=== PATIENT | male | born 1990 | race Hispanic/Latino ===

== ENCOUNTER 2018-05-08 10:26 | Emergency (ER) | payer BC, SELFPAY ==
[2018-05-08 11:30] LABS: Absolute Lymphocytes (CBC) 1.7 K/uL (0.7-4.9); Absolute Monocytes 0.5 K/uL (0.1-1.3); Basophils % 0.6 % (0-1.3); Eosinophils % 6.5 % (0-4.4); Hematocrit 47.4 % (39.6-49.0); Lymphocytes % 22.1 % (15.3-44.8); MCH 31.9 pg (27.0-35.0); MCV 89.3 fL (80-100); MPV 8.5 fL (7.6-11.3); Monocytes % 6.9 % (3.3-12.3); RBC Red Blood Cell Count 5.31 M/uL (4.33-5.43)
[2018-05-08 11:31] LABS: Protime INR 1.08
[2018-05-08 11:47] LABS: ALT/SGPT 25 U/L (12-78); AST/SGOT 14 U/L (15-37); Albumin 4.2 g/dL (3.4-5.0); Alkaline Phosphatase 109 U/L (45-117); BUN Blood Urea Nitrogen 13 mg/dL (7-18); Bicarbonate 28 mmol/L (21-32); Bilirubin Direct 0.2 mg/dL (0-0.2); Bilirubin Total 0.6 mg/dL (0.2-1.0); Glucose Level 95 mg/dL (74-106); Magnesium 2.2 mg/dL (1.8-2.4); NT PRO-BNP 15 pg/mL (<125); Potassium 3.8 mmol/L (3.5-5.1); Protein, Total 8.3 g/dL (6.4-8.2); Sodium Level 139 mmol/L (136-145); Troponin (Emerg Dept Use Only) < 0.02 ng/mL (0.0-0.045)
[2018-05-08] MEDS ORDERED: METHYLPREDNISOLONE 125 MG INJ ONE (11:49)
[2018-05-08] MEDS ORDERED: ALBUTEROL 2.5 MG/3 ML NEB SOL ONE (11:49)
[2018-05-08] MEDS ORDERED: ONDANSETRON 4 MG/2 ML VIAL ONE (11:49)
[2018-05-08] MEDS ORDERED: IPRATROPIUM BROM 0.5MG/2.5ML ONE (11:49)
[2018-05-08] MEDS ORDERED: NA CHLORIDE 0.9% 1,000 ML ONE ×2 (12:20→13:16)
--- NOTE | 2018-05-08 12:48 | RAD REPORT ---
EXAM DESCRIPTION: RAD - Chest Pa And Lat (2 Views) - 05/08/2018 11:34 am CLINICAL HISTORY: COUGH Chest pain. COMPARISON: Chest Pa And Lat (2 Views) dated 03/24/2016 FINDINGS: The lungs are clear. The heart is normal in size. No displaced fractures. IMPRESSION: No acute or concerning finding suspected.
--- NOTE | 2018-05-08 12:55 | EDPHYS ---
Physician Documentation [facility] Name: Brenden Washington Age: 28 yrs Sex: Male : 1990 Arrival Date: 05/08/2018 Time: 10:29 Bed 14 Private MD: None, None ED Physician Bacilio Andujar HPI: 05/08 10:48 This 28 yrs old Male presents to ER via Ambulatory with complaints of cp Congestion, Breathing Difficulty. 10:48 The patient or guardian reports cough, that is intermittent, with productive sputum, cp difficulty breathing. Onset: The symptoms/episode began/occurred 1 month(s) ago. 10:48 Associated signs and symptoms: Pertinent positives: shortness of breath, Pertinent cp negatives: chest pain, fever, sore throat, vomiting. Severity of symptoms: in the emergency department the symptoms are worse moderately. Historical: - Allergies: 10:36 Aspirin; aj1 - Home Meds: 10:36 None [Active]; aj1 - PMHx: 10:36 None; aj1 - PSHx: 10:36 None; aj1 - Immunization history:: Flu vaccine is not up to date. - Social history:: Smoking status: Patient uses tobacco products, denies chronic smoking, but will smoke occasionally. - Ebola Screening: : Patient denies travel to an Ebola-affected area in the 21 days before illness onset. ROS: 10:55 Constitutional: Negative for body aches, chills, fever, poor PO intake. cp 10:55 Eyes: Negative for injury, pain, redness, and discharge. cp 10:55 ENT: Negative for drainage from ear(s), ear pain, sore throat, difficulty swallowing, difficulty handling secretions. 10:55 Cardiovascular: Negative for chest pain, edema, palpitations. 10:55 Respiratory: Positive for cough, shortness of breath, wheezing, Negative for hemoptysis. 10:55 Abdomen/GI: Negative for abdominal pain, vomiting, diarrhea, constipation, black/tarry stool, rectal bleeding. 10:55 Back: Negative for radiated pain. 10:55 Skin: Negative for cellulitis, rash. 10:55 Neuro: Negative for altered mental status, dizziness, headache, syncope, weakness. 10:55 All other systems are negative. Exam: 11:00 Constitutional: The patient appears in no acute distress, alert, awake, cp non-diaphoretic, non-toxic, well developed, well nourished. 11:00 Head/Face: Normocephalic, atraumatic. Eyes: Pupils equal round and reactive to light, cp extra-ocular motions intact. Lids and lashes normal. Conjunctiva and sclera are non-icteric and not injected. Cornea within normal limits. Periorbital areas with no swelling, redness, or edema. ENT: Nares patent. No nasal discharge, no septal abnormalities noted. Tympanic membranes are normal and external auditory canals are clear. Oropharynx with no redness, swelling, or masses, exudates, or evidence of obstruction, uvula midline. Mucous membranes moist. Neck: Trachea midline, no thyromegaly or masses palpated, and no cervical lymphadenopathy. Supple, full range of motion without nuchal rigidity, or vertebral point tenderness. No Meningismus. Chest/axilla: Normal chest wall appearance and motion. Nontender with no deformity. No lesions are appreciated. 11:00 Cardiovascular: Rate: tachycardic, Rhythm: regular, Pulses: Pulses are 2+ in right radial artery and left radial artery. Heart sounds: murmur, not appreciated, Edema: is not appreciated, JVD: is not appreciated. 11:00 Respiratory: the patient does not display signs of respiratory distress, Respirations: labored breathing, is not present, intercostal retractions, are absent, shallow respirations, are not present, Breath sounds: decreased breath sounds, that are mild, diffuse, stridor, is not appreciated, + upper airway congestion. wheezing: that is mild, is heard diffusely. 11:00 Abdomen/GI: Inspection: abdomen appears normal, Palpation: abdomen is soft and non-tender, in all quadrants. 11:00 Back: pain, is absent, ROM is normal. 11:00 Skin: cellulitis, is not appreciated, no rash present. 11:00 Neuro: Orientation: to person, place \T\ time. Mentation: is normal, Cerebellar function: is grossly normal, Motor: moves all fours, strength is normal, Sensation: no obvious gross deficits. 11:24 ECG was reviewed by the Attending Physician. cp Vital Signs: 10:36 BP 152 / 116; Pulse 112; Resp 20; Temp 98.6(TE); Pulse Ox 98% on R/A; Weight 68.04 kg aj1 (R); Height 5 ft. 8 in. (172.72 cm) (R); Pain 5/10; 11:30 BP 150 / 98; Pulse 108; Resp 18; Pulse Ox 100% on R/A; hj 12:38 BP 148 / 97; Pulse 98; Resp 18; Pulse Ox 100% on R/A; hj 13:30 BP 135 / 95; Pulse 106; Resp 18; Pulse Ox 100% on R/A; hj 10:36 Body Mass Index 22.81 (68.04 kg, 172.72 cm) aj1 MDM: 10:42 Patient medically screened. amanda 11:00 Differential diagnosis: bronchitis, flu, URI, pneumonia, reactive airway, CHF, less cp likely pulmonary embolism. 12:52 Data reviewed: vital signs, nurses notes, lab test result(s), EKG, radiologic studies, cp plain films. 12:52 Test interpretation: by ED physician or midlevel provider: ECG, plain radiologic cp studies. Counseling: I had a detailed discussion with the patient and/or guardian regarding: the historical points, exam findings, and any diagnostic results supporting the discharge/admit diagnosis, lab results, radiology results, the need for outpatient follow up, a family practitioner, to return to the emergency department if symptoms worsen or persist or if there are any questions or concerns that arise at home. Response to treatment: the patient's symptoms have markedly improved after treatment, and as a result, I will discharge patient. ED course: VSS. Patient reports symptoms improved. Will discharge to home for continued monitoring. 05/08 10:50 Order name: Basic Metabolic Panel; Complete Time: 12:04 05/08 10:50 Order name: CBC with Diff; Complete Time: 12: cp 05/08 10:50 Order name: LFT's; Complete Time: 12:04 cp 05/08 10:50 Order name: Magnesium; Complete Time: 12:04 cp 05/08 10:50 Order name: NT PRO-BNP; Complete Time: 12:04 cp 05/08 10:50 Order name: PT-INR; Complete Time: 12:04 05/08 10:50 Order name: Troponin (emerg Dept Use Only); Complete Time: 12:04 05/08 10:50 Order name: XRAY Chest Pa And Lat (2 Views); Complete Time: 12:53 cp 05/08 10:50 Order name: Strep; Complete Time: 12:04 cp 05/08 11:47 Order name: Throat Culture EDMS 05/08 10:50 Order name: EKG; Complete Time: 10:50 cp 05/08 10:50 Order name: Cardiac monitoring; Complete Time: 10:55 cp 05/08 10:50 Order name: EKG - Nurse/Tech; Complete Time: 11:36 cp 05/08 10:50 Order name: IV Saline Lock; Complete Time: 11:36 cp 05/08 10:50 Order name: Labs collected and sent; Complete Time: 11:36 cp 05/08 10:50 Order name: O2 Per Protocol; Complete Time: 10:55 cp 05/08 10:50 Order name: O2 Sat Monitoring; Complete Time: 10:56 cp EC:24 Rate is 94 beats/min. Rhythm is regular. SC interval is normal. QRS interval is normal. cp QT interval is normal. T waves are Inverted in lead III. Interpreted by me. Reviewed by me. Administered Medications: 11:20 Drug: Zofran 4 mg Route: IVP; Site: right antecubital; hj 13:09 Follow up: Response: No adverse reaction hj 11:20 Drug: Albuterol - atroVENT (3:1) (2.5 mg - 0.5 mg) 3 ml Route: Nebulizer; hj 13:09 Follow up: Response: No adverse reaction; Wheezing diminished hj 11:20 Drug: SOLU-Medrol 125 mg Route: IVP; Site: right antecubital; hj 13:09 Follow up: Response: No adverse reaction hj 12:05 Drug: NS 0.9% 1000 ml Route: IV; Rate: 1 bolus; Site: right antecubital; hj 13:09 Follow up: IV Status: Completed infusion; IV Intake: 1000ml hj 13:08 Drug: NS 0.9% 1000 ml Route: IV; Rate: 1 bolus; Site: right antecubital; hj 13:10 Follow up: IV Status: Completed infusion Disposition: 05/09 06:22 Co-signature as Attending Physician, Bacilio MCKEON I agree with the assessment and amanda plan of care. Disposition: 05/08/18 12:54 Discharged to Home. Impression: Acute bronchitis, unspecified. - Condition is Stable. - Discharge Instructions: Acute Bronchitis, Adult. - Prescriptions for Tessalon Perles 100 mg Oral Capsule - take 1 capsule by ORAL route every 8 hours As needed; 15 capsule. Zithromax Z- Faraz 250 mg Oral Tablet - take 1 tablet by ORAL route as directed for 5 days Day 1 - take two (2) tablets one time. Day 2, 3, 4 , 5 take one (1) tablet once daily.; 6 tablet. Prednisone 20 mg Oral Tablet - take 2 tablet by ORAL route once daily for 5 days; 10 tablet. Albuterol Sulfate 90 mcg/actuation - inhale 1-2 puff by INHALATION route every 4-6 hours; 1 Inhaler. - Medication Reconciliation Form, Thank You Letter, Antibiotic Education, Prescription Opioid Use form. - Follow up: Private Physician; When: 2 - 3 days; Reason: Recheck today's complaints. - Problem is new. - Symptoms have improved. Signatures: Dispatcher [employer] EDLaxmi Cardenas RN RN aj1 Bacilio Andujar MD MD cha Joaquin, Henry, RN RN hj Bacilio Das PA PA cp Corrections: (The following items were deleted from the chart) 05/08 14:12 12:54 05/08/2018 12:54 Discharged to Home. Impression: Acute bronchitis, unspecified. hj Condition is Stable. Forms are Medication Reconciliation Form, Thank You Letter, Antibiotic Education, Prescription Opioid Use. Follow up: Private Physician; When: 2 - 3 days; Reason: Recheck today's complaints. Problem is new. Symptoms have improved. cp
--- NOTE | 2018-05-08 12:55 | ER ---
Nurse's Notes [facility] Name: Brenden Washington Age: 28 yrs Sex: Male : 1990 Arrival Date: 05/08/2018 Time: 10:29 Bed 14 Private MD: None, None Diagnosis: Acute bronchitis, unspecified Presentation: 05/08 10:33 Presenting complaint: Patient states: "I've been having like a general cough for like a aj1 month now. I was just taking over the counter medicine and it would go away a little bit and then it would get worse. This morning I woke up and I felt like I couldn't breathe." Reports that he was running fever last week, but has not had any fever since Wednesday. Transition of care: patient was not received from another setting of care. Onset of symptoms was March 2018. Risk Assessment: Do you want to hurt yourself or someone else? Patient reports no desire to harm self or others. Initial Sepsis Screen: Does the patient meet any 2 criteria? HR > 90 bpm. No. Patient's initial sepsis screen is negative. Does the patient have a suspected source of infection? Yes: Productive cough/pneumonia. Care prior to arrival: None. 10:33 Method Of Arrival: Ambulatory aj1 10:33 Acuity: ADI 4 aj1 Triage Assessment: 10:36 General: Appears in no apparent distress. uncomfortable, Behavior is calm, cooperative, aj1 appropriate for age. Pain: Complains of pain in chest Pain currently is 5 out of 10 on a pain scale. Aggravated by cough, deep breathing. Neuro: Level of Consciousness is awake, alert, obeys commands. Cardiovascular: Patient's skin is warm and dry. Respiratory: Airway is patent Respiratory effort is even, unlabored, Respiratory pattern is regular, symmetrical. 10:42 Respiratory: hj Historical: - Allergies: 10:36 Aspirin; aj1 - Home Meds: 10:36 None [Active]; aj1 - PMHx: 10:36 None; aj1 - PSHx: 10:36 None; aj1 - Immunization history:: Flu vaccine is not up to date. - Social history:: Smoking status: Patient uses tobacco products, denies chronic smoking, but will smoke occasionally. - Ebola Screening: : Patient denies travel to an Ebola-affected area in the 21 days before illness onset. Screenin:42 Abuse screen: Denies threats or abuse. Denies injuries from another. Nutritional hj screening: No deficits noted. Tuberculosis screening: No symptoms or risk factors identified. Fall Risk None identified. Assessment: 10:36 General: Appears in no apparent distress. uncomfortable, Behavior is calm, cooperative, hj appropriate for age. Pain: Complains of pain in chest. Neuro: Level of Consciousness is awake, alert, obeys commands, Oriented to person, place, time, situation, Appropriate for age. Cardiovascular: Capillary refill < 3 seconds Patient's skin is warm and dry. Respiratory: Airway is patent Respiratory effort is even, unlabored, Respiratory pattern is regular, symmetrical. Respiratory: Breath sounds are clear bilaterally. GI: No signs and/or symptoms were reported involving the gastrointestinal system. : No signs and/or symptoms were reported regarding the genitourinary system. EENT: No signs and/or symptoms were reported regarding the EENT system. Derm: No signs and/or symptoms reported regarding the dermatologic system. Musculoskeletal: No signs and/or symptoms reported regarding the musculoskeletal system. 11:30 Reassessment: Patient and/or family updated on plan of care and expected duration. Pain hj level reassessed. Patient is alert, oriented x 3, equal unlabored respirations, skin warm/dry/pink. 12:30 Reassessment: Patient and/or family updated on plan of care and expected duration. Pain hj level reassessed. Patient is alert, oriented x 3, equal unlabored respirations, skin warm/dry/pink. 13:13 Reassessment: for D/C; 2nd bag N 1 L still running;. hj Vital Signs: 10:36 BP 152 / 116; Pulse 112; Resp 20; Temp 98.6(TE); Pulse Ox 98% on R/A; Weight 68.04 kg aj1 (R); Height 5 ft. 8 in. (172.72 cm) (R); Pain 5/10; 11:30 BP 150 / 98; Pulse 108; Resp 18; Pulse Ox 100% on R/A; hj 12:38 BP 148 / 97; Pulse 98; Resp 18; Pulse Ox 100% on R/A; hj 13:30 BP 135 / 95; Pulse 106; Resp 18; Pulse Ox 100% on R/A; hj 10:36 Body Mass Index 22.81 (68.04 kg, 172.72 cm) aj1 ED Course: 10:29 Patient arrived in ED. mr 10:30 None, None is Private Physician. mr 10:36 Triage completed. aj1 10:36 Arm band placed on Patient placed in an exam room. aj1 10:41 Lc Stanton RN is Primary Nurse. hj 10:41 Bacilio Das PA is PHCP. cp 10:41 Bacilio Andujar MD is Attending Physician. cp 10:42 Patient has correct armband on for positive identification. Bed in low position. Call hj light in reach. Side rails up X 1. Adult w/ patient. 11:20 Initial lab(s) drawn, by me, sent to lab. EKG done. Inserted saline lock: 22 gauge in hj right antecubital area, using aseptic technique. Blood collected. 11:28 XRAY Chest Pa And Lat (2 Views) In Process Unspecified. EDMS 11:36 Strep Sent. hj 14:11 No provider procedures requiring assistance completed. IV discontinued, intact, hj bleeding controlled, No redness/swelling at site. Pressure dressing applied. Administered Medications: 11:20 Drug: Zofran 4 mg Route: IVP; Site: right antecubital; hj 13:09 Follow up: Response: No adverse reaction hj 11:20 Drug: Albuterol - atroVENT (3:1) (2.5 mg - 0.5 mg) 3 ml Route: Nebulizer; hj 13:09 Follow up: Response: No adverse reaction; Wheezing diminished hj 11:20 Drug: SOLU-Medrol 125 mg Route: IVP; Site: right antecubital; hj 13:09 Follow up: Response: No adverse reaction hj 12:05 Drug: NS 0.9% 1000 ml Route: IV; Rate: 1 bolus; Site: right antecubital; hj 13:09 Follow up: IV Status: Completed infusion; IV Intake: 1000ml hj 13:08 Drug: NS 0.9% 1000 ml Route: IV; Rate: 1 bolus; Site: right antecubital; hj 13:10 Follow up: IV Status: Completed infusion hj Intake: 13:09 IV: 1000ml; Total: 1000ml. hj Outcome: 12:54 Discharge ordered by . cp 14:11 Discharged to home ambulatory. hj 14:11 Condition: stable 14:11 Discharge instructions given to patient, Instructed on discharge instructions, follow up and referral plans. medication usage, Demonstrated understanding of instructions, follow-up care, medications, Prescriptions given X 4. 14:12 Patient left the ED. wojciech Signatures: Dispatcher [employer] EDLaxmi Cardenas, RN RN aj1 Cyndy Del Cid mr StantonLc RN RN hj Page, Corey, PA PA cp Corrections: (The following items were deleted from the chart) 13:25 13:13 Reassessment: 2nd bag running; wojciech jeffrey
--- NOTE | 2018-05-09 07:38 | EKG ---
Test Date: 2018-05-08 Test Time: 11:17:20 Elevator Service Technician: JAMILA MEASUREMENT RESULTS: Intervals: Rate: 94 MT: 112 QRSD: 96 QT: 338 QTc: 422 [place]: P: 71 MT: 112 QRS: 73 T: 30 INTERPRETIVE STATEMENTS: Normal sinus rhythm Normal ECG Compared to ECG 03/24/2016 07:58:15 Sinus arrhythmia no longer present Electronically Signed On 05-09-18 07:36:59 TITLE I PARAPROFESSIONAL by Yahir Conley
== END 2018-05-08 14:12 | disposition home or self-care (01) ==
LOC: ER 10:26
DX: J20.9 Acute bronchitis, unspecified (principal); Z72.0 Tobacco use
CPT/HCPCS: 36415; 71046; 80048; 80076; 83735; 83880; 84484; 85025; 85610; 87070; 87081; 93005; 94640; 96361; 96374; 96375; 99284; J2405; J2930; J7030

== ENCOUNTER 2020-05-01 07:13 | Emergency (ER) | payer SELFPAY ==
[2020-05-01 07:51] LABS: Absolute Lymphocytes (CBC) 1.2 K/uL (0.7-4.9); Hematocrit 46.6 % (39.6-49.0); Lymphocytes % 23.6 % (15.3-44.8); MPV 8.3 fL (7.6-11.3); RBC Red Blood Cell Count 5.23 M/uL (4.33-5.43)
[2020-05-01 08:14] LABS: Barbiturates NEGATIVE (NEGATIVE); Benzodiazepines NEGATIVE (NEGATIVE); Cocaine NEGATIVE (NEGATIVE); METHAMPHETAM NEGATIVE (NEGATIVE); Methadone NEGATIVE (NEGATIVE); Opiates NEGATIVE (NEGATIVE); Phencyclidine NEGATIVE (NEGATIVE); THC Cannibis NEGATIVE (NEGATIVE)
[2020-05-01 08:17] LABS: ALT/SGPT 41 U/L (12-78); AST/SGOT 21 U/L (15-37); Albumin 4.3 g/dL (3.4-5.0); Alkaline Phosphatase 116 U/L (45-117); BUN Blood Urea Nitrogen 17 mg/dL (7-18); Bicarbonate 29 mmol/L (21-32); Bilirubin Direct 0.1 mg/dL (0-0.2); Bilirubin Total 0.5 mg/dL (0.2-1.0); Glucose Level 99 mg/dL (74-106); Potassium 3.9 mmol/L (3.5-5.1); Protein, Total 8.5 g/dL (6.4-8.2); Sodium Level 140 mmol/L (136-145)
[2020-05-01 08:18] LABS: Urine Blood NEGATIVE (NEG); Urine Glucose NEGATIVE (NEG); Urine Protein NEGATIVE (NEG)
[2020-05-01] MEDS ORDERED: ONDANSETRON 4 MG/2 ML VIAL ONE (08:37)
--- NOTE | 2020-05-01 08:38 | RAD REPORT ---
EXAM DESCRIPTION: CT - Head Brain Wo Cont - 05/01/2020 8:32 am CLINICAL HISTORY: CONFUSED, unresponsive, altered mental status COMPARISON: No comparisons TECHNIQUE: Axial 5 mm thick images of the head were obtained without IV contrast. All CT scans are performed using dose optimization technique as appropriate and may include automated exposure control or mA/KV adjustment according to patient size. FINDINGS: No intracranial hemorrhage, mass, edema or shift of mid-line structures. No acute infarcti on changes seen. No abnormal extra-axial fluid collections. Ventricles are normal. Mastoid air cells are clear. No acute paranasal sinus finding. No acute bony findings. IMPRESSION: Negative non-contrast CT head examination.
--- NOTE | 2020-05-01 10:15 | EDPHYS ---
Physician Documentation [facility] Name: Brenden Washington Age: 30 yrs Sex: Male : 1990 Arrival Date: 05/01/2020 Time: 07:17 Bed 8 Private MD: ED Physician Sam Mckeon HPI: 05/01 08:18 This 30 yrs old Male presents to ER via EMS with complaints of Altered Mental kdr Status. 08:18 The patient presents with agitation, confusion, disorientation, to person, to place, to kdr time. Onset: The symptoms/episode began/occurred suddenly, just prior to arrival, this morning. Possible causes: unknown. Historical: - Allergies: 07:26 Aspirin (Anaphylaxis); tw2 - Home Meds: 07:26 carvedilol 12.5 mg oral tab 1 tab 2 times per day (Last Dose: 04/30/2020) [Active]; tw2 - PMHx: 07:26 Asthma; Hypertension; tw2 - PSHx: 07:26 None; tw2 - Immunization history:: Adult Immunizations. - Social history:: Smoking status: . Exam: 07:39 ECG was reviewed by the Attending Physician. kdr Vital Signs: 07:18 BP 146 / 113; Pulse 81; Resp 19; Temp 99.2(O); Pulse Ox 98% on R/A; Weight 75.3 kg (R); tw2 Height 5 ft. 8 in. (172.72 cm); Pain 0/10; 07:44 BP 144 / 101; Pulse 94; Resp 17; Pulse Ox 96% ; jl7 08:04 BP 122 / 85; Pulse 88; Resp 18; Pulse Ox 97% on R/A; tw2 08:37 BP 135 / 97; Pulse 76; Resp 18; Pulse Ox 97% on R/A; tw2 09:40 BP 137 / 99; Pulse 76; Resp 17; Pulse Ox 98% on R/A; tw2 07:18 Body Mass Index 25.24 (75.30 kg, 172.72 cm) tw2 MDM: 10:14 Patient medically screened. kdr 05/01 07:18 Order name: Acetaminophen; Complete Time: 08:52 kdr 05/01 07:18 Order name: Basic Metabolic Panel; Complete Time: 08:52 kdr 11/18 07:18 Order name: CBC with Diff; Complete Time: 08:52 kdr 05/01 07:18 Order name: ETOH Level; Complete Time: 08:52 kdr 05/01 07:18 Order name: Hepatic Function; Complete Time: 08:52 kdr 05/01 07:18 Order name: PT-INR; Complete Time: 08:52 kdr 05/01 07:18 Order name: Ptt, Activated; Complete Time: 08:52 kdr 05/01 07:18 Order name: Salicylate; Complete Time: 09:34 kdr 05/01 07:18 Order name: Urine Drug Screen; Complete Time: 08:52 kdr 05/01 07:18 Order name: EKG; Complete Time: 07:19 kdr 05/01 07:18 Order name: EKG - Nurse/Tech; Complete Time: 07:44 kdr 05/01 07:53 Order name: Urine Dipstick--Ancillary (enter results); Complete Time: 08:52 bd 05/01 07:59 Order name: CT Head Brain wo Cont; Complete Time: 08:52 kdr 05/01 07:18 Order name: IV Saline Lock; Complete Time: 07:44 kdr 05/01 07:18 Order name: Labs collected and sent; Complete Time: 07:44 kdr 05/01 07:18 Order name: Urine Dipstick-Ancillary (obtain specimen); Complete Time: 08:00 kdr EC:39 Rate is 82 beats/min. Rhythm is regular, Sinus arrythmia with No ectopy. QRS [place] is kdr Normal. [place] interval is normal. QRS interval is normal. QT interval is normal. Clinical impression: NSR w/ Non-specific ST/T Changes. Administered Medications: 08:26 Drug: Zofran (Ondansetron) 4 mg Route: IVP; Site: right antecubital; jl7 08:45 Follow up: Response: No adverse reaction; Nausea is decreased jl7 Disposition: 05/01/20 10:14 Discharged to Home. Impression: Altered mental status, unspecified, Confusional arousals. - Condition is Stable. - Discharge Instructions: Confusion, Weakness, [id number]. - Medication Reconciliation Form, Thank You Letter, Work release form form. - Follow up: Private Physician; When: 2 - 3 days; Reason: If symptoms return, Further diagnostic work-up, Recheck today's complaints, Continuance of care, Re-evaluation by your physician. Follow up: Shravan Cuevas MD; When: 1 - 2 days; Reason: If symptoms return, Further diagnostic work-up, Recheck today's complaints, Continuance of care, Re-evaluation by your physician. - Problem is new. - Symptoms are resolved. Signatures: Dispatcher [employer] EDMS Sam Mckeon MD MD [facility] Macarena Minaya RN RN tw2 Jeannie Curtis RN RN jl7 Corrections: (The following items were deleted from the chart) 10:37 10:14 05/01/2020 10:14 Discharged to Home. Impression: Altered mental status, jl7 unspecified; Confusional arousals. Condition is Stable. Forms are Medication Reconciliation Form, Thank You Letter, Antibiotic Education, Prescription Opioid Use. Follow up: Private Physician; When: 2 - 3 days; Reason: If symptoms return, Further diagnostic work-up, Recheck today's complaints, Continuance of care, Re-evaluation by your physician. Follow up: Shravan Cuevas; When: 1 - 2 days; Reason: If symptoms return, Further diagnostic work-up, Recheck today's complaints, Continuance of care, Re-evaluation by your physician. Problem is new. Symptoms are resolved. kdr
--- NOTE | 2020-05-01 10:15 | ER ---
Nurse's Notes [facility] Name: Brenden Washington Age: 30 yrs Sex: Male : 1990 Arrival Date: 05/01/2020 Time: 07:17 Bed 8 Private MD: Diagnosis: Altered mental status, unspecified;Confusional arousals Presentation: 05/01 07:18 Chief complaint: EMS states: pt was found unresponsive outside of friends house, they tw2 think he was walking, when we arrived he was A\\T\\O x1, confused, alert to verbal stimuli, friends denied seizure like activity, friends say he has a new dx of HTN and started Carvedilol first dose last night, and has a hx of asthma, pt states he doesn't remember the fall or us showing up, he denies ETOH, synthetic or any drug use, he was nauseous, we gave 4 mg Zofran and 250 ml NS, he was hypertensive for us. Coronavirus screen: At this time, the client does not indicate any symptoms associated with coronavirus-19. Ebola Screen: Patient denies travel to an Ebola-affected area in the 21 days before illness onset. Initial Sepsis Screen: Does the patient meet any 2 criteria? No. Patient's initial sepsis screen is negative. Does the patient have a suspected source of infection? No. Patient's initial sepsis screen is negative. Risk Assessment: Do you want to hurt yourself or someone else? Patient reports no desire to harm self or others. Onset of symptoms was May 01, 2020. 07:18 Method Of Arrival: EMS: [facility] tw2 07:18 Acuity: ADI 2 tw2 Triage Assessment: 07:18 General: Appears in no apparent distress. slender, Behavior is calm, cooperative, tw2 appropriate for age. General: Reports "i just feel very drowsy like and i was supposed to go get my physical for work". Pain: Denies pain. EENT: No signs and/or symptoms were reported regarding the EENT system. Neuro: Level of Consciousness is awake, alert, obeys commands, Oriented to person, place, situation. Cardiovascular: Heart tones S1 S2 Patient's skin is warm and dry. Respiratory: Airway is patent Respiratory effort is even, unlabored, Respiratory pattern is regular, symmetrical, Breath sounds are clear bilaterally. GI: No signs and/or symptoms were reported involving the gastrointestinal system. Abdomen is flat, Bowel sounds present X 4 quads. : No signs and/or symptoms were reported regarding the genitourinary system. Derm: No signs and/or symptoms reported regarding the dermatologic system. Musculoskeletal: Range of motion: intact in all extremities. Historical: - Allergies: 07:26 Aspirin (Anaphylaxis); tw2 - Home Meds: 07:26 carvedilol 12.5 mg oral tab 1 tab 2 times per day (Last Dose: 04/30/2020) [Active]; tw2 - PMHx: 07:26 Asthma; Hypertension; tw2 - PSHx: 07:26 None; tw2 - Immunization history:: Adult Immunizations. - Social history:: Smoking status: . Screenin:27 Abuse screen: Denies threats or abuse. Nutritional screening: No deficits noted. tw2 Tuberculosis screening: No symptoms or risk factors identified. Fall Risk None identified. Assessment: 08:04 Reassessment: see triage assessment. tw2 08:28 Reassessment: Pt c/o nausea, ERD notified, VO for 4 mg Zofran IVP, medicated as ordered.jl7 08:37 Reassessment: Patient appears in no apparent distress at this time. No changes from tw2 previously documented assessment. Patient and/or family updated on plan of care and expected duration. Pain level reassessed. Patient is alert, oriented x 3, equal unlabored respirations, skin warm/dry/pink. 08:58 Reassessment: pt ambulates with father to restroom at this time, slow steady gait. tw2 08:59 Reassessment: pt c/o "headache on my forehead, can i get some ibuprofen, 3/10", tw2 provider notified. 09:40 Reassessment: Patient appears in no apparent distress at this time. No changes from tw2 previously documented assessment. Patient and/or family updated on plan of care and expected duration. Pain level reassessed. Patient is alert, oriented x 3, equal unlabored respirations, skin warm/dry/pink. Vital Signs: 07:18 BP 146 / 113; Pulse 81; Resp 19; Temp 99.2(O); Pulse Ox 98% on R/A; Weight 75.3 kg (R); tw2 Height 5 ft. 8 in. (172.72 cm); Pain 0/10; 07:44 BP 144 / 101; Pulse 94; Resp 17; Pulse Ox 96% ; jl7 08:04 BP 122 / 85; Pulse 88; Resp 18; Pulse Ox 97% on R/A; tw2 08:37 BP 135 / 97; Pulse 76; Resp 18; Pulse Ox 97% on R/A; tw2 09:40 BP 137 / 99; Pulse 76; Resp 17; Pulse Ox 98% on R/A; tw2 07:18 Body Mass Index 25.24 (75.30 kg, 172.72 cm) tw2 ED Course: 07:17 Patient arrived in ED. tw2 07:17 Placed in gown. Bed in low position. Side rails up X2. vehicle monitor technician on. Pulse ox on. tw2 NIBP on. 07:18 Sam Mckeon MD is Attending Physician. kdr 07:23 Triage completed. tw2 07:26 Arm band placed on. tw2 07:26 Maintain EMS IV. Dressing intact. Site clean \\T\\ dry. Gauge \\T\\ site: 20 g RIGHT FA. tw 2 07:27 Macarena Minaya, RN is Primary Nurse. tw2 07:38 Initial lab(s) drawn, by il, sent to lab. Inserted saline lock: 20 gauge in right tw2 antecubital area, using aseptic technique. Blood collected. 08:00 Urine Drug Screen Sent. tw2 08:30 CT Head Brain wo Cont In Process Unspecified. EDMS 08:31 CT completed. Patient tolerated procedure well. Patient moved to CT via stretcher. sj Patient moved back from CT. 10:13 Shravan Cuevas MD is Referral Physician. kdr 10:36 No provider procedures requiring assistance completed. IV discontinued, intact, jl7 bleeding controlled, No redness/swelling at site. Pressure dressing applied. Administered Medications: 08:26 Drug: Zofran (Ondansetron) 4 mg Route: IVP; Site: right antecubital; jl7 08:45 Follow up: Response: No adverse reaction; Nausea is decreased jl7 Outcome: 10:14 Discharge ordered by . kdr 10:36 Discharged to home ambulatory. jl7 10:36 Condition: stable 10:36 Discharge instructions given to patient, Instructed on discharge instructions, follow up and referral plans. Demonstrated understanding of instructions, follow-up care. 10:37 Patient left the ED. jl7 Signatures: Dispatcher [employer] EDMS Sam Mckeon MD MD kdr Jones, Susan sj Wise, Tara, RN RN tw2 Jeannie Curtis RN RN jl7
[2020-05-01 13:13] VITALS: TEMP 99.2
[2020-05-01 13:19] VITALS: BP 137/99; O2SAT 98
--- NOTE | 2020-05-02 06:07 | EKG ---
Test Date: 2020-05-01 Test Time: 07:34:06 Restaurant Hourly Manager: WILL MEASUREMENT RESULTS: Intervals: Rate: 82 NV: 122 QRSD: 90 QT: 342 QTc: 399 [place]: P: 54 NV: 122 QRS: 24 T: 12 INTERPRETIVE STATEMENTS: Normal sinus rhythm with sinus arrhythmia Normal ECG Compared to ECG 05/08/2018 11:17:20 No significant changes Electronically Signed On 05-02-20 06:03:16 ELECTRONIC GAME DEVELOPER by Asif Rhodes
== END 2020-05-01 10:37 | disposition home or self-care (01) ==
LOC: ER 07:13
DX: G47.51 Confusional arousals (principal); I10 Essential (primary) hypertension; J45.909 Unspecified asthma, uncomplicated; Z88.6 Allergy status to analgesic agent
CPT/HCPCS: 36415; 70450; 80048; 80076; 80307; 80320; 80329; 81003; 85025; 85610; 85730; 93005; 96374; 99285; J2405

== ENCOUNTER 2020-06-27 08:00 | Emergency (ER) | payer SELFPAY ==
[2020-06-27 09:05] LABS: Absolute Lymphocytes (CBC) 0.5 K/uL (0.7-4.9); Basophils % 0.5 % (0-1.3); Hematocrit 45.9 % (39.6-49.0); Lymphocytes % 14.9 % (15.3-44.8); MPV 8.5 fL (7.6-11.3); RBC Red Blood Cell Count 5.19 M/uL (4.33-5.43)
[2020-06-27] MEDS ORDERED: LIDOCAINE VISCOUS 2% SOLN 15 ML UDC ONE (09:17)
[2020-06-27] MEDS ORDERED: KETOROLAC 30 MG/ML INJ ONE (09:17)
[2020-06-27] MEDS ORDERED: MAGNES/ALUMIN/SIMET 30ML UCUP ONE (09:17)
[2020-06-27] MEDS ORDERED: FAMOTIDINE 20 MG/2 ML VIAL IV ONE (09:18)
[2020-06-27] MEDS ORDERED: NA CHLORIDE 0.9% 1,000 ML ONE (09:18)
[2020-06-27 09:50] LABS: ALT/SGPT 19 U/L (12-78); AST/SGOT 16 U/L (15-37); Albumin 4.4 g/dL (3.4-5.0); Alkaline Phosphatase 118 U/L (45-117); BUN Blood Urea Nitrogen 15 mg/dL (7-18); Bicarbonate 30 mmol/L (21-32); Bilirubin Direct 0.1 mg/dL (0-0.2); Bilirubin Total 0.4 mg/dL (0.2-1.0); Glucose Level 84 mg/dL (74-106); Lipase 92 U/L (73-393); Potassium 3.7 mmol/L (3.5-5.1); Protein, Total 8.6 g/dL (6.4-8.2); Sodium Level 140 mmol/L (136-145)
[2020-06-27 09:55] LABS: Blood Morphology Comment NOT SEEN (NOT SEEN); Platelet Estimate ADEQ; White Blood Cell Scan OK (OK)
--- NOTE | 2020-06-27 10:23 | ER ---
Nurse's Notes [facility] Name: Brenden Washington Age: 30 yrs Sex: Male : 1990 Arrival Date: 06/27/2020 Time: 08:03 Bed 26 Private MD: Diagnosis: Abdominal and pelvic pain;Vomiting Presentation: 06/27 08:33 Chief complaint: Patient states: vomiting X 2 days, also has burning in his stomach, no iw fever, +chills and weakness from not eating. Coronavirus screen: vomiting. Ebola Screen: Patient negative for fever greater than or equal to 101.5 degrees Fahrenheit, and additional compatible Ebola Virus Disease symptoms Patient denies exposure to infectious person. Patient denies travel to an Ebola-affected area in the 21 days before illness onset. No symptoms or risks identified at this time. Initial Sepsis Screen: Does the patient meet any 2 criteria? No. Patient's initial sepsis screen is negative. Does the patient have a suspected source of infection? No. Patient's initial sepsis screen is negative. Risk Assessment: Do you want to hurt yourself or someone else? Patient reports no desire to harm self or others. Onset of symptoms was June 25, 2020. 08:33 Method Of Arrival: Wheelchair iw 08:33 Acuity: ADI 3 iw Historical: - Allergies: 08:35 Aspirin (Anaphylaxis); iw - Home Meds: 08:35 None [Active]; iw - PMHx: 08:35 Asthma; Hypertension; iw - PSHx: 08:35 None; iw - Immunization history:: Adult Immunizations not up to date. - Social history:: Smoking status: Patient denies any tobacco usage or history of. Screenin:14 Abuse screen: Denies threats or abuse. Nutritional screening: No deficits noted. jd3 Tuberculosis screening: No symptoms or risk factors identified. Fall Risk Ambulatory Aid- None/Bed Rest/Nurse Assist (0 pts). Gait- Normal/Bed Rest/Wheelchair (0 pts) Mental Status- Oriented to own ability (0 pts). Total Duran Fall Scale indicates No Risk (0-24 pts). Assessment: 09:13 General: Appears in no apparent distress. uncomfortable, Behavior is calm, cooperative, jd3 appropriate for age. Pain: Complains of pain in abdomen Quality of pain is described as aching, gnawing. Neuro: Level of Consciousness is awake, alert, obeys commands, Oriented to person, place, time, situation. Cardiovascular: Denies chest pain, Capillary refill < 3 seconds Patient's skin is warm and dry. Respiratory: Airway is patent Respiratory effort is even, unlabored, Respiratory pattern is regular, symmetrical, Denies cough, shortness of breath. GI: Abdomen is flat, non-distended, Abd is soft and non tender X 4 quads. Reports upper abdominal pain, nausea, vomiting, Patient currently denies. : No signs and/or symptoms were reported regarding the genitourinary system. EENT: No signs and/or symptoms were reported regarding the EENT system. Derm: Skin is intact, Skin is dry, Skin is normal, Skin temperature is warm. Musculoskeletal: Circulation, motion, and sensation intact. Range of motion: intact in all extremities. 10:06 Reassessment: Patient appears in no apparent distress at this time. Patient and/or jd3 family updated on plan of care and expected duration. Pain level reassessed. Patient is alert, oriented x 3, equal unlabored respirations, skin warm/dry/pink. Patient states feeling better. 10:47 Reassessment: Patient appears in no apparent distress at this time. Patient and/or jd3 family updated on plan of care and expected duration. Pain level reassessed. Patient is alert, oriented x 3, equal unlabored respirations, skin warm/dry/pink. reported understanding of discharge instructions, even and steady gait upon discharge. Vital Signs: 08:33 BP 137 / 94; Pulse 102; Resp 16; Temp 99.2; Pulse Ox 98% on R/A; Weight 72.57 kg; iw Height 5 ft. 8 in. (172.72 cm); 09:13 BP 142 / 108; Pulse 90; Resp 17 S; Pulse Ox 99% on R/A; jd3 10:06 BP 128 / 95; Pulse 99; Resp 16 S; Pulse Ox 100% on R/A; jd3 08:33 Body Mass Index 24.33 (72.57 kg, 172.72 cm) iw ED Course: 08:03 Patient arrived in ED. as 08:35 Triage completed. iw 08:35 Arm band placed on. iw 08:38 Sam Mckeon MD is Attending Physician. kdr 08:44 Mando Coronado, RN is Primary Nurse. jd3 08:55 Inserted saline lock: 20 gauge in right antecubital area, using aseptic technique. jd3 Blood collected. 09:14 Patient has correct armband on for positive identification. Bed in low position. Call jd3 light in reach. Side rails up X 1. Pulse ox on. NIBP on. 10:45 No provider procedures requiring assistance completed. IV discontinued, intact, jd3 bleeding controlled, No redness/swelling at site. Pressure dressing applied. Administered Medications: 09:12 Drug: NS 0.9% 1000 ml Route: IV; Rate: 1 bolus; Site: right antecubital; jd3 10:11 Follow up: Response: No adverse reaction; IV Status: Completed infusion; IV Intake: jd3 1000ml 09:12 Drug: Pepcid 20 mg Route: IVP; Site: right antecubital; jd3 10:11 Follow up: Response: No adverse reaction jd3 09:12 Drug: GI Cocktail without - (Maalox Suspension 30 ml, Lidocaine Liquid 2 % 15 jd3 ml) Route: PO; 10:11 Follow up: Response: No adverse reaction jd3 09:12 Drug: TORadol - Ketorolac 15 mg Route: IVP; Site: right antecubital; jd3 10:11 Follow up: Response: No adverse reaction jd3 Intake: 10:11 IV: 1000ml; Total: 1000ml. jd3 Outcome: 10:23 Discharge ordered by . kdr 10:45 Discharged to home ambulatory, with family. jd3 10:45 Condition: stable 10:45 Discharge instructions given to patient, Instructed on discharge instructions, follow up and referral plans. medication usage, Demonstrated understanding of instructions, follow-up care, medications, Prescriptions given X 2. 10:47 Patient left the ED. jd3 Signatures: Sam Mckeon MD MD kdr Martinez, Amelia as Williams, Irene, RN BETO iw Mando Coronado RN RN jd3
--- NOTE | 2020-06-27 10:23 | EDPHYS ---
Physician Documentation [facility] Name: Brenden Washington Age: 30 yrs Sex: Male : 1990 Arrival Date: 06/27/2020 Time: 08:03 Bed 26 Private MD: ED Physician Sam Mckeon HPI: 06/27 09:27 This 30 yrs old Male presents to ER via Wheelchair with complaints of kdr Abdominal Pain, Nausea, Decreased Appetite. 09:27 The patient presents to the emergency department with nausea, vomiting, that is kdr intermittent. Onset: The symptoms/episode began/occurred gradually, 2 day(s) ago. Possible causes: unknown. The symptoms are aggravated by nothing. The symptoms are alleviated by nothing. Associated signs and symptoms: Pertinent positives: abdominal pain, nausea, vomiting, Pertinent negatives:. Severity of symptoms: At their worst the symptoms were mild moderate just prior to arrival, in the emergency department the symptoms have improved mildly. The patient has experienced a previous episode, last year. The patient has not recently seen a physician. Historical: - Allergies: 08:35 Aspirin (Anaphylaxis); iw - Home Meds: 08:35 None [Active]; iw - PMHx: 08:35 Asthma; Hypertension; iw - PSHx: 08:35 None; iw - Immunization history:: Adult Immunizations not up to date. - Social history:: Smoking status: Patient denies any tobacco usage or history of. ROS: 09:27 Constitutional: Negative for fever, chills, and weight loss, Eyes: Negative for injury, kdr pain, redness, and discharge, ENT: Negative for injury, pain, and discharge, Neck: Negative for injury, pain, and swelling, Respiratory: Negative for shortness of breath, cough, wheezing, and pleuritic chest pain, Back: Negative for injury and pain, : Negative for injury, bleeding, discharge, and swelling, MS/Extremity: Negative for injury and deformity, Skin: Negative for injury, rash, and discoloration, Neuro: Negative for headache, weakness, numbness, tingling, and seizure activity. Psych: Negative for depression, anxiety, suicide ideation, homicidal ideation, and hallucinations, Allergy/Immunology: Negative for hives, rash, and allergies, Endocrine: Negative for neck swelling, polydipsia, polyuria, polyphagia, and marked weight changes, Hematologic/Lymphatic: Negative for swollen nodes, abnormal bleeding, and unusual bruising. 09:27 Cardiovascular: Positive for chest pain, Negative for edema, orthopnea, palpitations, paroxysmal nocturnal dyspnea, acute changes. 09:27 Cardiovascular: Positive for 09:27 Abdomen/GI: Positive for abdominal pain, nausea and vomiting, of the epigastric area. Exam: 09:27 Constitutional: This is a well developed, well nourished patient who is awake, alert, kdr and in no acute distress. Head/Face: Normocephalic, atraumatic. Eyes: Pupils equal round and reactive to light, extra-ocular motions intact. Lids and lashes normal. Conjunctiva and sclera are non-icteric and not injected. Cornea within normal limits. Periorbital areas with no swelling, redness, or edema. Neck: Trachea midline, no thyromegaly or masses palpated, and no cervical lymphadenopathy. Supple, full range of motion without nuchal rigidity, or vertebral point tenderness. No Meningismus. Chest/axilla: Normal chest wall appearance and motion. Nontender with no deformity. No lesions are appreciated. Cardiovascular: Regular rate and rhythm with a normal S1 and S2. No gallops, murmurs, or rubs. Normal PMI, no JVD. No pulse deficits. Respiratory: Lungs have equal breath sounds bilaterally, clear to auscultation and percussion. No rales, rhonchi or wheezes noted. No increased work of breathing, no retractions or nasal flaring. Abdomen/GI: Soft, non-tender, with normal bowel sounds. No distension or tympany. No guarding or rebound. No evidence of tenderness throughout. Back: No spinal tenderness. No costovertebral tenderness. Full range of motion. Skin: Warm, dry with normal turgor. Normal color with no rashes, no lesions, and no evidence of cellulitis. MS/ Extremity: Pulses equal, no cyanosis. Neurovascular intact. Full, normal range of motion. Neuro: Awake and alert, GCS 15, oriented to person, place, time, and situation. Cranial nerves II-XII grossly intact. Motor strength 5/5 in all extremities. Sensory grossly intact. Cerebellar exam normal. Normal gait. Psych: Awake, alert, with orientation to person, place and time. Behavior, mood, and affect are within normal limits. Vital Signs: 08:33 BP 137 / 94; Pulse 102; Resp 16; Temp 99.2; Pulse Ox 98% on R/A; Weight 72.57 kg; iw Height 5 ft. 8 in. (172.72 cm); 09:13 BP 142 / 108; Pulse 90; Resp 17 S; Pulse Ox 99% on R/A; jd3 10:06 BP 128 / 95; Pulse 99; Resp 16 S; Pulse Ox 100% on R/A; jd3 08:33 Body Mass Index 24.33 (72.57 kg, 172.72 cm) iw MDM: 10:23 Patient medically screened. kdr 13:01 Data reviewed: vital signs, nurses notes, lab test result(s), radiologic studies. kdr Counseling: I had a detailed discussion with the patient and/or guardian regarding: the historical points, exam findings, and any diagnostic results supporting the discharge/admit diagnosis, lab results, the need for outpatient follow up. 06/27 08:47 Order name: Basic Metabolic Panel; Complete Time: 10:21 kdr 06/27 08:47 Order name: CBC with Diff; Complete Time: 10:21 kdr 06/27 08:47 Order name: Hepatic Function; Complete Time: 10:21 kdr 06/27 08:47 Order name: Lipase; Complete Time: 10:21 kdr 06/27 09:09 Order name: CBC Smear Scan; Complete Time: 10:21 EDMS 06/27 08:47 Order name: IV Saline Lock; Complete Time: 08:59 kdr 06/27 08:47 Order name: Labs collected and sent; Complete Time: 08:59 kdr Administered Medications: 09:12 Drug: NS 0.9% 1000 ml Route: IV; Rate: 1 bolus; Site: right antecubital; jd3 10:11 Follow up: Response: No adverse reaction; IV Status: Completed infusion; IV Intake: jd3 1000ml 09:12 Drug: Pepcid 20 mg Route: IVP; Site: right antecubital; jd3 10:11 Follow up: Response: No adverse reaction jd3 09:12 Drug: GI Cocktail without - (Maalox Suspension 30 ml, Lidocaine Liquid 2 % 15 jd3 ml) Route: PO; 10:11 Follow up: Response: No adverse reaction jd3 09:12 Drug: TORadol - Ketorolac 15 mg Route: IVP; Site: right antecubital; jd3 10:11 Follow up: Response: No adverse reaction jd3 Disposition: 06/27/20 10:23 Discharged to Home. Impression: Abdominal and pelvic pain, Vomiting. - Condition is Stable. - Discharge Instructions: Nausea and Vomiting, Adult, [id number], Abdominal Pain, Adult, [id number]. - Prescriptions for Pepcid 20 mg Oral Tablet - take 1 tablet by ORAL route every 12 hours for 5 days; 10 tablet. Zofran 4 mg Oral Tablet - take 1 tablet by ORAL route every 4-6 hours As needed; 12 tablet. - Medication Reconciliation Form, Thank You Letter form. - Follow up: Private Physician; When: 2 - 3 days; Reason: If symptoms return, Further diagnostic work-up, Recheck today's complaints, Continuance of care, Re-evaluation by your physician. - Problem is new. - Symptoms have improved. Signatures: Dispatcher [employer] EDPA Sam Mckeon MD MD kdr Andreea Jean-Baptiste RN RN iw Mando Coronado RN RN jd3 Corrections: (The following items were deleted from the chart) 10:47 10:23 06/27/2020 10:23 Discharged to Home. Impression: Abdominal and pelvic pain; jd3 Vomiting. Condition is Stable. Forms are Medication Reconciliation Form, Thank You Letter, Antibiotic Education, Prescription Opioid Use. Follow up: Private Physician; When: 2 - 3 days; Reason: If symptoms return, Further diagnostic work-up, Recheck today's complaints, Continuance of care, Re-evaluation by your physician. Problem is new. Symptoms have improved. kdr
[2020-06-27 10:52] VITALS: TEMP 99.2
[2020-06-27 10:55] VITALS: BP 128/95; O2SAT 100
== END 2020-06-27 10:47 | disposition home or self-care (01) ==
LOC: ER 08:00
DX: R11.0 Nausea (principal); I10 Essential (primary) hypertension; Z88.6 Allergy status to analgesic agent
CPT/HCPCS: 36415; 80048; 80076; 83690; 85025; 96361; 96374; 96375; 99284; J7030

== ENCOUNTER 2020-06-30 08:44 | Emergency (ER) | payer SELFPAY ==
[2020-06-30 09:31] LABS: Absolute Lymphocytes (CBC) 0.9 K/uL (0.7-4.9); Basophils % 0.5 % (0-1.3); Hematocrit 46.7 % (39.6-49.0); Lymphocytes % 31.1 % (15.3-44.8); MPV 8.9 fL (7.6-11.3); RBC Red Blood Cell Count 5.26 M/uL (4.33-5.43)
[2020-06-30] MEDS ORDERED: ONDANSETRON 4 MG/2 ML VIAL ONE (09:37)
[2020-06-30] MEDS ORDERED: NA CHLORIDE 0.9% 1,000 ML ONE (09:37)
[2020-06-30 09:46] LABS: ALT/SGPT 20 U/L (12-78); Albumin 4.2 g/dL (3.4-5.0); Alkaline Phosphatase 111 U/L (45-117); BUN Blood Urea Nitrogen 8 mg/dL (7-18); Bicarbonate 31 mmol/L (21-32); Bilirubin Direct < 0.1 mg/dL (0-0.2); Bilirubin Total 0.3 mg/dL (0.2-1.0); Glucose Level 91 mg/dL (74-106); Lipase 85 U/L (73-393); Protein, Total 8.1 g/dL (6.4-8.2); Sodium Level 139 mmol/L (136-145)
[2020-06-30 09:47] LABS: AST/SGOT 19 U/L (15-37); Potassium 3.8 mmol/L (3.5-5.1)
--- NOTE | 2020-06-30 09:53 | RAD REPORT ---
EXAM DESCRIPTION: CT - Abdomen Pelvis W Contrast - 06/30/2020 9:40 am CLINICAL HISTORY: ABD PAIN COMPARISON: No comparisons TECHNIQUE: Biphasic, helical CT imaging of the abdomen and pelvis was performed following 100 ml non -ionic IV contrast. No oral contrast administered. All CT scans are performed using dose optimization technique as appropriate and may include automated exposure control or mA/KV adjustment according to patient size. FINDINGS: No suspicious findings in the lung bases. The liver, spleen, and pancreas show no suspicious findings. Gallbladder and biliary tree are also wi thout suspicious finding. Gallstones can be occult on CT imaging. Symmetric renal function is seen with no hydronephrosis or suspicious renal mass. No pyelonephritis o r acute parenchymal process. No bladder abnormalities. No adrenal abnormalities. No distal esophagus abnormality seen. Patient has a very small hiatal hernia. There is possible wall thickening and edema of the gastric antrum. Peristalsis can create artifactual thickening. However, g iven the persistent upper abdominal pain history that was provided, antritis or ulceration in the ant rum would be possible. No duodenal abnormality identified. Remainder of the small bowel is unremarkable. The appendix is normal. No acute colon process. No maxwell e air, free fluid or inflammatory stranding. No hernia, mass or bulky lymphadenopathy. No suspicious bony findings. IMPRESSION: Conteh of the gastric antrum appear slightly thickened and edematous. This is commonly a gastric peristalsis artifact. However, given the upper abdominal pain history, antritis or gastric a ntrum ulcer would be possible. Very minimal hiatal hernia. Exam is otherwise unremarkable.
--- NOTE | 2020-06-30 09:57 | ER ---
Nurse's Notes [facility] Name: Brenden Washington Age: 30 yrs Sex: Male : 1990 Arrival Date: 06/30/2020 Time: 08:46 Bed 6 Private MD: Diagnosis: Unspecified abdominal pain Presentation: 06/30 08:54 Chief complaint: Upper abdominal pain and N/V x 1 week. Recently seen in ED for same hb s/s, reports he does not feel better.. Coronavirus screen: At this time, the client does not indicate any symptoms associated with coronavirus-19. Ebola Screen: No symptoms or risks identified at this time. Initial Sepsis Screen: Does the patient meet any 2 criteria? No. Patient's initial sepsis screen is negative. Does the patient have a suspected source of infection? No. Patient's initial sepsis screen is negative. Risk Assessment: Do you want to hurt yourself or someone else? Patient reports no desire to harm self or others. Onset of symptoms was June 23, 2020. 08:54 Method Of Arrival: Ambulatory hb 08:54 Acuity: ADI 3 hb Historical: - Allergies: 08:56 Aspirin (Anaphylaxis); hb - Home Meds: 08:56 carvedilol 12.5 mg Oral tab 1 tab 2 times per day [Active]; hb - PMHx: 08:56 Hypertension; Asthma; hb - PSHx: 08:56 None; hb - Immunization history:: Adult Immunizations up to date. - Social history:: Smoking status: Patient denies any tobacco usage or history of. Screenin:06 Abuse screen: Denies threats or abuse. Nutritional screening: No deficits noted. em Tuberculosis screening: No symptoms or risk factors identified. Fall Risk None identified. Assessment: 09:05 General: Appears in no apparent distress. uncomfortable, Behavior is calm, cooperative, em appropriate for age. Pain: Complains of pain in abdomen Pain currently is 6 out of 10 on a pain scale. Neuro: Level of Consciousness is awake, alert, obeys commands, Oriented to person, place, time, situation, Appropriate for age. Cardiovascular: Capillary refill < 3 seconds Patient's skin is warm and dry. Respiratory: Airway is patent Respiratory effort is even, unlabored, Respiratory pattern is regular, symmetrical. GI: Abdomen is flat, Bowel sounds present X 4 quads. Abd is soft X 4 quads Reports nausea, vomiting. Derm: Skin is intact, is healthy with good turgor, Skin is pink, warm \T\ dry. Musculoskeletal: Capillary refill < 3 seconds, Range of motion: intact in all extremities. 10:00 Reassessment: Patient appears in no apparent distress at this time. Patient and/or em family updated on plan of care and expected duration. Pain level reassessed. Patient is alert, oriented x 3, equal unlabored respirations, skin warm/dry/pink. pending completion of IV fluids Patient states feeling better. Patient states symptoms have improved. Vital Signs: 08:54 BP 139 / 102; Pulse 88; Resp 16; Temp 97.6; Pulse Ox 100% on R/A; Pain 6/10; hb ED Course: 08:46 Patient arrived in ED. rg4 08:53 Thad Betts, RN is Primary Nurse. em 08:55 Triage completed. hb 08:56 Arm band placed on. hb 09:04 Chandan Lizama NP is PHCP. pm1 09:04 Macho Alford MD is Attending Physician. pm1 09:05 Initial lab(s) drawn, by de, sent to lab. Inserted saline lock: 20 gauge in left em antecubital area, using aseptic technique. Blood collected. 09:06 Patient has correct armband on for positive identification. Placed in gown. Bed in low em position. Call light in reach. Side rails up X2. 09:19 Missed attempt(s): 18 gauge in left antecubital area. Bleeding controlled, band aid em applied, catheter tip intact. 09:40 CT Abd/Pelvis - IV Contrast Only In Process Unspecified. EDMS 10:42 No provider procedures requiring assistance completed. IV discontinued, intact, em bleeding controlled, No redness/swelling at site. Pressure dressing applied. Administered Medications: :27 Drug: NS 0.9% 1000 ml Route: IV; Rate: 1000 ml; Site: left antecubital; em 10:43 Follow up: IV Status: Completed infusion; IV Intake: 1000ml em : Drug: Zofran (Ondansetron) 4 mg Route: IVP; Site: left antecubital; em 10:42 Follow up: Response: No adverse reaction; Marked relief of symptoms; Nausea is decreasedem Intake: 10:43 IV: 1000ml; Total: 1000ml. em Outcome: 09:56 Discharge ordered by . pm1 10:42 Discharged to home ambulatory. em 10:42 Condition: good 10:42 Discharge instructions given to patient, Instructed on discharge instructions, follow up and referral plans. medication usage, Demonstrated understanding of instructions, follow-up care, medications, Prescriptions given X 1. 10:42 Patient left the ED. Signatures: Dispatcher [employer] Thad Mercado RN RN em Chandan Lizama, MANAGER AUDIT MANAGER AUDIT pm1 Dunia Bennett RN RN hb Garcia, Rubi rg4 Corrections: (The following items were deleted from the chart) 08:57 08:54 Chief complaint: Upper abdominal pain and N/V x 1 week. hb hb
--- NOTE | 2020-06-30 09:57 | EDPHYS ---
Physician Documentation [facility] Name: Brenden Washington Age: 30 yrs Sex: Male : 1990 Arrival Date: 06/30/2020 Time: 08:46 Bed 6 Private MD: ED Physician Macho Alford HPI: 06/30 09:50 This 30 yrs old Male presents to ER via Ambulatory with complaints of pm1 Abdominal Pain. 09:50 The patient presents with abdominal pain. Onset: The symptoms/episode began/occurred 1 pm1 week(s) ago. The symptoms do not radiate. Associated signs and symptoms: Pertinent positives: nausea and vomiting, Pertinent negatives: chest pain, diarrhea, dysuria, fever, shortness of breath. The symptoms are described as burning. Modifying factors: The symptoms are alleviated by nothing, the symptoms are aggravated by nothing. Severity of pain: in the emergency department the pain has resolved and did so earlier today, is a 0 / 10. The patient has been recently seen at the [facility], for similar complaints labs were performed, was given a prescription for an antiemetic, pepcid. Historical: - Allergies: 08:56 Aspirin (Anaphylaxis); hb - Home Meds: 08:56 carvedilol 12.5 mg Oral tab 1 tab 2 times per day [Active]; hb - PMHx: 08:56 Hypertension; Asthma; hb - PSHx: 08:56 None; hb - Immunization history:: Adult Immunizations up to date. - Social history:: Smoking status: Patient denies any tobacco usage or history of. ROS: 09:50 Constitutional: Negative for fever, chills, and weight loss, Cardiovascular: Negative pm1 for chest pain, palpitations, and edema, Respiratory: Negative for shortness of breath, cough, wheezing, and pleuritic chest pain. 09:50 Back: Negative for injury and pain, : Negative for injury, bleeding, discharge, and swelling, MS/Extremity: Negative for injury and deformity, Skin: Negative for injury, rash, and discoloration, Neuro: Negative for headache, weakness, numbness, tingling, and seizure. 09:50 Abdomen/GI: Positive for abdominal pain, nausea and vomiting, Negative for diarrhea, constipation. 09:56 Abdomen/GI: Negative for black/tarry stool, rectal pain, rectal bleeding. pm1 Exam: 09:50 Constitutional: This is a well developed, well nourished patient who is awake, alert, pm1 and in no acute distress. Head/Face: Normocephalic, atraumatic. 09:50 Back: No spinal tenderness. No costovertebral tenderness. Full range of motion. Skin: Warm, dry with normal turgor. Normal color with no rashes, no lesions, and no evidence of cellulitis. MS/ Extremity: Pulses equal, no cyanosis. Neurovascular intact. Full, normal range of motion. 09:50 Cardiovascular: Exam negative for acute changes, Rate: normal, Rhythm: regular, Pulses: no pulse deficits are appreciated. 09:50 Respiratory: Exam negative for acute changes, respiratory distress, shortness of breath. 09:50 Abdomen/GI: Inspection: abdomen appears normal, Palpation: abdomen is soft and non-tender, in all quadrants. 09:50 Neuro: Exam negative for acute changes, Orientation: is normal, Mentation: is normal, Motor: is normal, Sensation: is normal, no obvious gross deficits. Vital Signs: 08:54 BP 139 / 102; Pulse 88; Resp 16; Temp 97.6; Pulse Ox 100% on R/A; Pain 6/10; hb MDM: 09:08 Patient medically screened. pm1 09:53 Data reviewed: vital signs. pm1 09:56 Counseling: I had a detailed discussion with the patient and/or guardian regarding: the pm1 historical points, exam findings, and any diagnostic results supporting the discharge/admit diagnosis, lab results, radiology results, the need for outpatient follow up, a integrity engineer, to return to the emergency department if symptoms worsen or persist or if there are any questions or concerns that arise at home. 09:56 Counseling: I had a detailed discussion with the patient and/or guardian regarding: pm1 informed patient he needs to follow up with GI for EGD and further treatment. 06/30 09:09 Order name: Basic Metabolic Panel; Complete Time: 09:50 pm1 06/30 09:09 Order name: CBC with Diff; Complete Time: 10:16 pm1 06/30 09:09 Order name: Hepatic Function; Complete Time: 09:50 pm1 06/30 09:09 Order name: Lipase; Complete Time: 09:50 pm1 06/30 09:09 Order name: CT Abd/Pelvis - IV Contrast Only; Complete Time: 09:54 pm1 06/30 09:33 Order name: Manual Differential; Complete Time: 10:16 EDNC 06/30 09:09 Order name: IV Saline Lock; Complete Time: 09:29 pm1 06/30 09:09 Order name: Labs collected and sent; Complete Time: 09:29 pm1 Administered Medications: :27 Drug: NS 0.9% 1000 ml Route: IV; Rate: 1000 ml; Site: left antecubital; em 10:43 Follow up: IV Status: Completed infusion; IV Intake: 1000ml em 09:27 Drug: Zofran (Ondansetron) 4 mg Route: IVP; Site: left antecubital; em 10:42 Follow up: Response: No adverse reaction; Marked relief of symptoms; Nausea is decreasedem Disposition: 17:10 Co-signature as Attending Physician, Macho Alford MD. ma2 Disposition: 06/30/20 09:56 Discharged to Home. Impression: Unspecified abdominal pain. - Condition is Stable. - Discharge Instructions: Abdominal Pain, Adult, Gastritis, Adult. - Prescriptions for Bentyl 20 mg Oral Tablet - take 1 tablet by ORAL route every 6 hours As needed; 20 tablet. - Work release form, Medication Reconciliation Form, Thank You Letter, Antibiotic Education, Prescription Opioid Use form. - Follow up: Emergency Department; When: As needed; Reason: Worsening of condition. Follow up: Private Physician; When: 2 - 3 days; Reason: Recheck today's complaints, Continuance of care, Re-evaluation by your physician. - Problem is new. - Symptoms have improved. Signatures: Dispatcher [employer] [facility] Thad Betts, RN RN em Chandan Lizama, BRUSH FILLER HAND BRUSH FILLER HAND pm1 Dunia Bennett, BETO PÉREZ Macho Alford MD MD ma2 Corrections: (The following items were deleted from the chart) 10:42 09:56 06/30/2020 09:56 Discharged to Home. Impression: Unspecified abdominal pain. hb Condition is Stable. Forms are Medication Reconciliation Form, Thank You Letter, Antibiotic Education, Prescription Opioid Use. Follow up: Emergency Department; When: As needed; Reason: Worsening of condition. Follow up: Private Physician; When: 2 - 3 days; Reason: Recheck today's complaints, Continuance of care, Re-evaluation by your physician. Problem is new. Symptoms have improved. pm1
[2020-06-30 10:13] LABS: Blood Morphology Comment NOT SEEN (NOT SEEN); Platelet Estimate ADEQ
[2020-06-30 10:48] VITALS: BP 139/102; TEMP 97.6; O2SAT 100
== END 2020-06-30 10:42 | disposition home or self-care (01) ==
LOC: ER 08:44
DX: R10.9 Unspecified abdominal pain (principal); R11.2 Nausea with vomiting, unspecified; I10 Essential (primary) hypertension; Z88.6 Allergy status to analgesic agent
CPT/HCPCS: 36415; 74177; 80048; 80076; 83690; 85025; 96361; 96374; 99284; J2405; J7030; Q9967

== ENCOUNTER 2020-08-14 10:01 | Emergency (ER) | payer SELFPAY ==
--- OUTSIDE RECORDS SUMMARY | 2020-08-14 10:04 | XMS REPORT | Continuity of Care Document ---
:[address] [facility] t Address [address] [place] [address] Care Team Providers Name Role Phone Lab, Fam Pob I Attending Clinician Unavailable Problems This patient has no known problems. Allergies, Adverse Reactions, Alerts This patient has no known allergies or adverse reactions. Medications This patient has no known medications. Procedures This patient has no known procedures. Encounters Start End Encounter Admission Attending Care Care Encounter Source Date/Time Date/Time Type Type Clinicians Facility Department ID 2020-08-06 2020-08-06 Laboratory Lab, [facility] [id number] 09:08:02 09:28:02 Only Fam Pob I [employer] [id number] [place] [id number] [place] [id number] [address] Results This patient has no known results.
[2020-08-14] MEDS ORDERED: ONDANSETRON 4 MG/2 ML VIAL ONE (10:43)
[2020-08-14] MEDS ORDERED: NA CHLORIDE 0.9% 1,000 ML ONE (10:44)
[2020-08-14] MEDS ORDERED: FAMOTIDINE 20 MG/2 ML VIAL IV ONE (10:44)
[2020-08-14 10:45] LABS: Protime INR 1.17
[2020-08-14 10:46] LABS: Absolute Lymphocytes (CBC) 0.8 K/uL (0.7-4.9); Basophils % 0.6 % (0-1.3); Hematocrit 42.5 % (39.6-49.0); Lymphocytes % 17.3 % (15.3-44.8); MPV 10.1 fL (7.6-11.3); RBC Red Blood Cell Count 4.76 M/uL (4.33-5.43)
[2020-08-14 12:01] LABS: ALT/SGPT 24 U/L (12-78); AST/SGOT 11 U/L (15-37); Albumin 3.9 g/dL (3.4-5.0); Alkaline Phosphatase 94 U/L (45-117); BUN Blood Urea Nitrogen 11 mg/dL (7-18); Bicarbonate 28 mmol/L (21-32); Bilirubin Direct 0.1 mg/dL (0-0.2); Bilirubin Total 0.4 mg/dL (0.2-1.0); Glucose Level 87 mg/dL (74-106); Potassium 3.6 mmol/L (3.5-5.1); Protein, Total 7.2 g/dL (6.4-8.2); Sodium Level 143 mmol/L (136-145)
[2020-08-14 12:38] LABS: Barbiturates NEGATIVE (NEGATIVE); Benzodiazepines NEGATIVE (NEGATIVE); Cocaine NEGATIVE (NEGATIVE); METHAMPHETAM NEGATIVE (NEGATIVE); Methadone NEGATIVE (NEGATIVE); Opiates NEGATIVE (NEGATIVE); Phencyclidine NEGATIVE (NEGATIVE); THC Cannibis NEGATIVE (NEGATIVE)
[2020-08-14] MEDS ORDERED: COVID-19 VACC, MRNA(MODERNA)/PF 100 MCG/0.5 ML VIAL IM ONE (12:45)
--- NOTE | 2020-08-14 12:59 | ER ---
Nurse's Notes [facility] Name: Brenden Washington Age: 30 yrs Sex: Male : 1990 Arrival Date: 08/14/2020 Time: 10:02 Bed 3 Private MD: Diagnosis: Nausea and vomiting;Altered mental status, unspecified Presentation: 08/14 10:05 Onset of symptoms was August 14, 2020. sv 10:05 Chief complaint: EMS states: Found slouched forward on couch this morning. Caller ss reported that patient was weak and experiencing shortness of breath. Upon arrival, patient is talking, but slow to respond. Patient reports fatigue and vomiting blood last night. Recently had an endoscopy 2 days ago. Denies pain at this time. Coronavirus screen: Client denies travel out of the [place] in the last 14 days. Ebola Screen: Patient denies exposure to infectious person. Patient denies travel to an Ebola-affected area in the 21 days before illness onset. Initial Sepsis Screen: Does the patient meet any 2 criteria? HR > 90 bpm. No. Patient's initial sepsis screen is negative. Does the patient have a suspected source of infection? No. Patient's initial sepsis screen is negative. Risk Assessment: Do you want to hurt yourself or someone else? Patient reports no desire to harm self or others. 10:05 Method Of Arrival: EMS: [facility] ss 10:05 Acuity: ADI 2 ss Historical: - Allergies: 10:06 Aspirin (Anaphylaxis); sv 10:15 unknown HTN medication "starts with C"; ss - Home Meds: 10:06 carvedilol 12.5 mg Oral tab 1 tab 2 times per day [Active]; Omeprazole Oral [Active]; sv Famotidine Oral [Active]; - PMHx: 10:06 Asthma; Hypertension; sv - PSHx: 10:06 None; sv - Immunization history:: Adult Immunizations unknown. - Social history:: Smoking status: Patient denies any tobacco usage or history of. Patient/guardian denies using alcohol, street drugs. Screenin:09 Abuse screen: Denies threats or abuse. Denies injuries from another. Nutritional ss screening: No deficits noted. Tuberculosis screening: Never had TB. Fall Risk None identified. Assessment: 10:09 Reassessment: Received VO from Dr Mckeon for toxic workup. sv 10:09 General: Appears comfortable, Behavior is calm, cooperative, quiet, Reports fatigue for ss Denies fever, feeling ill, chills. Pain: Denies pain. Neuro: Level of Consciousness is awake, obeys commands, Oriented to person, place, time, situation, Speech slow to answer. Pupils are PERRLA. Cardiovascular: Capillary refill < 3 seconds is brisk in bilateral fingers Patient's skin is warm and dry. Respiratory: Airway is patent Respiratory effort is even, unlabored, Respiratory pattern is regular, symmetrical. GI: Abdomen is non-distended, Bowel sounds present X 4 quads. Reports vomiting blood last night. Patient currently denies abdominal pain, diarrhea. : No signs and/or symptoms were reported regarding the genitourinary system. EENT: Oral mucosa is moist. Derm: Skin is intact, is healthy with good turgor, Skin is dry. Musculoskeletal: Circulation, motion, and sensation intact. Range of motion: intact in all extremities, Swelling absent. 11:06 Reassessment: Patient appears in no apparent distress at this time. Patient and/or ss family updated on plan of care and expected duration. Pain level reassessed. Patient is alert, oriented x 3, equal unlabored respirations, skin warm/dry/pink. 12:17 Reassessment: Patient appears in no apparent distress at this time. Patient and/or ss family updated on plan of care and expected duration. Pain level reassessed. Patient is alert, oriented x 3, equal unlabored respirations, skin warm/dry/pink. urine specimen obtained. UDS and UA in process. Awaiting results. 13:43 Reassessment: Patient appears in no apparent distress at this time. Patient and/or ss family updated on plan of care and expected duration. Pain level reassessed. Patient states feeling better. Patient states symptoms have improved. Vital Signs: 10:05 BP 152 / 96; Pulse 96; Resp 20; Temp 99.0(O); Pulse Ox 100% on R/A; Pain 0/10; ss 11:06 BP 121 / 85; Pulse 77; Resp 14; Pulse Ox 100% on R/A; ss 12:17 BP 128 / 88; Pulse 76; Resp 16; Pulse Ox 100% on R/A; ss NIH Stroke Scale Scores: 10:15 NIHSS Score: 0 ED Course: 10:02 Patient arrived in ED. am2 10:03 Sam Mckeon MD is Attending Physician. kdr 10:07 Arm band placed on Patient placed in an exam room, on a stretcher, on bonsai tender, sv on pulse oximetry. 10:07 process design engineer on. Pulse ox on. NIBP on. sv 10:07 Maintain EMS IV. Dressing intact. Site clean \\T\\ dry. Gauge \\T\\ site: 18G R AC. sv 10:08 Triage completed. ss 10:09 Patient has correct armband on for positive identification. Bed in low position. Call ss light in reach. 10:14 Merary Foreman, BETO is Primary Nurse. ss 10:14 EKG done, by ED staff, reviewed by Sam Mckeon MD. sv 12:22 Urine Dipstick--Ancillary (enter results) Sent. sv 12:23 Urine Drug Screen Sent. mh5 13:32 IV discontinued, Pressure dressing applied. 5 13:42 No provider procedures requiring assistance completed. ss Administered Medications: 10:30 Drug: NS 0.9% 1000 ml Route: IV; Rate: 1 bolus; Site: right antecubital; ss 12:18 Follow up: IV Status: Completed infusion; IV Intake: 1000ml ss 10:32 Drug: Zofran (Ondansetron) 4 mg Route: IVP; Site: right antecubital; ss 12:18 Follow up: Response: No adverse reaction; Nausea is decreased ss 10:34 Drug: Pepcid 20 mg Route: IVP; Site: right antecubital; ss 12:18 Follow up: Response: No adverse reaction ss 13:18 Drug: Maalox Suspension (200 mg-200 mg-20 mg/5 mL) 30 ml Route: PO; ss 13:43 Follow up: Response: No adverse reaction; Marked relief of symptoms ss Intake: 12:18 IV: 1000ml; Total: 1000ml. Outcome: 12:59 Discharge ordered by . kdr 13:42 Discharged to home ambulatory. ss 13:42 Condition: good 13:42 Discharge instructions given to patient, Instructed on discharge instructions, follow up and referral plans. medication usage, Demonstrated understanding of instructions, follow-up care, medications, Prescriptions given X 1. 13:43 Patient left the ED. NIH Stroke Scale - NIH Stroke Score Date: 08/14/2020 Time: 10:15 Total Score = 0 1a. Level of Consciousness (LOC) - 0(Alert) 1b. Level of Consciousness (LOC) (Year \\T\\ Age) - 0(Both) 1c. LOC Commands (Open \\T\\ Closes Eyes/Sales Representative Trainee) - 0(Both) 2. Best Gaze (Lateral Gaze Paresis) - 0(Normal) 3. Visual Field Loss - 0(No visual loss) 4. Facial Palsy - 0(Normal) 5a. Left Arm: Motor (10-second hold) - 0(No drift) 5b. Right Arm: Motor (10-second hold) - 0(No drift) 6a. Left Leg: Motor (5-second hold - always test supine) - 0(No drift) 6b. Right Leg: Motor (5-second hold - always test supine) - 0(No drift) 7. Limb Ataxia (finger/nose \\T\\ heel/castillo - test with eyes open) - 0(Absent) 8. Sensory Loss (pinprick arms/legs/face) - 0(Normal) 9. Best Language: Aphasia (description/naming/reading) - 0(No aphasia) 10. Dysarthria (speech clarity - read or repeat words) - 0(Normal) 11. Extinction and Inattention (visual/tactile/auditory/spatial/personal) - 0(No abnormality) Initials: Signatures: Karin Parker, RN Sam Swain MD MD kdr Smirch, Shelby, RN RN ss Martinez, Maria [facility] Marlen Ayala [facility]
--- NOTE | 2020-08-14 13:00 | EDPHYS ---
Physician Documentation [facility] Name: Brenden Washington Age: 30 yrs Sex: Male : 1990 Arrival Date: 08/14/2020 Time: 10:02 Bed 3 Private MD: ED Physician Sam Mckeon HPI: 08/14 16:37 This 30 yrs old Male presents to ER via EMS with complaints of Altered Mental kdr Status. 16:37 The patient presents with confusion, decreased mental status, decreased responsiveness. kdr Onset: The symptoms/episode began/occurred today, at an unknown time. Possible causes: drug use, head injury, seizure, sepsis, The patient has been feeling poorly and not eating and drinking much. EMS and police did not see evidence of drug use but perceived the possible odor of synthetic marijuana. Associated signs and symptoms: Pertinent positives: chest pain, pleuritic chest pain. Current symptoms: In the emergency department the patient's symptoms have improved, moderately. Patient's baseline: Neuro: alert and fully oriented, Motor: no deficits, Ambulation: walks without assistance, Speech: normal for age. It is unknown whether or not the patient has had similar symptoms in the past. It is unknown whether or not the patient has recently seen a physician. Historical: - Allergies: 10:06 Aspirin (Anaphylaxis); sv 10:15 unknown HTN medication "starts with C"; ss - Home Meds: 10:06 carvedilol 12.5 mg Oral tab 1 tab 2 times per day [Active]; Omeprazole Oral [Active]; sv Famotidine Oral [Active]; - PMHx: 10:06 Asthma; Hypertension; sv - PSHx: 10:06 None; sv - Immunization history:: Adult Immunizations unknown. - Social history:: Smoking status: Patient denies any tobacco usage or history of. Patient/guardian denies using alcohol, street drugs. ROS: 16:37 Constitutional: Negative for fever, chills, and weight loss, Eyes: Negative for injury, kdr pain, redness, and discharge, ENT: Negative for injury, pain, and discharge, Neck: Negative for injury, pain, and swelling, Respiratory: Negative for shortness of breath, cough, wheezing, and pleuritic chest pain, Abdomen/GI: Negative for abdominal pain, nausea, vomiting, diarrhea, and constipation, Back: Negative for injury and pain, : Negative for injury, bleeding, discharge, and swelling, MS/Extremity: Negative for injury and deformity, Skin: Negative for injury, rash, and discoloration, Neuro: Negative for headache, weakness, numbness, tingling, and seizure activity. Psych: Negative for depression, anxiety, suicide ideation, homicidal ideation, and hallucinations, Allergy/Immunology: Negative for hives, rash, and allergies, Endocrine: Negative for neck swelling, polydipsia, polyuria, polyphagia, and marked weight changes, Hematologic/Lymphatic: Negative for swollen nodes, abnormal bleeding, and unusual bruising. 16:37 Cardiovascular: Positive for chest pain, Negative for edema, orthopnea, palpitations, paroxysmal nocturnal dyspnea. Exam: 10:26 ECG was reviewed by the Attending Physician. kdr 16:37 Constitutional: This is a well developed, well nourished patient who is awake, alert, kdr and in mild distress. The patinet is looking down and slow to respond Head/Face: Normocephalic, atraumatic. Eyes: Pupils equal round and reactive to light, extra-ocular motions intact. Lids and lashes normal. Conjunctiva and sclera are non-icteric and not injected. Cornea within normal limits. Periorbital areas with no swelling, redness, or edema. Neck: Trachea midline, no thyromegaly or masses palpated, and no cervical lymphadenopathy. Supple, full range of motion without nuchal rigidity, or vertebral point tenderness. No Meningismus. Chest/axilla: Normal chest wall appearance and motion. Nontender with no deformity. No lesions are appreciated. Cardiovascular: Regular rate and rhythm with a normal S1 and S2. No gallops, murmurs, or rubs. Normal PMI, no JVD. No pulse deficits. Respiratory: Lungs have equal breath sounds bilaterally, clear to auscultation and percussion. No rales, rhonchi or wheezes noted. No increased work of breathing, no retractions or nasal flaring. Abdomen/GI: Soft, non-tender, with normal bowel sounds. No distension or tympany. No guarding or rebound. No evidence of tenderness throughout. Back: No spinal tenderness. No costovertebral tenderness. Full range of motion. Skin: Warm, dry with normal turgor. Normal color with no rashes, no lesions, and no evidence of cellulitis. MS/ Extremity: Pulses equal, no cyanosis. Neurovascular intact. Full, normal range of motion. Neuro: Awake and alert, GCS 15, oriented to person, place, time, and situation. Cranial nerves II-XII grossly intact. Motor strength 5/5 in all extremities. Sensory grossly intact. Cerebellar exam normal. Normal gait. 16:37 Psych: Behavior/mood is cooperative, depressed, Affect is flat, Oriented to person, place, time, Patient has no thoughts/intents to harm self or others. Judgement / Insight is impaired. Delusions/hallucinations are not present. Vital Signs: 10:05 BP 152 / 96; Pulse 96; Resp 20; Temp 99.0(O); Pulse Ox 100% on R/A; Pain 0/10; ss 11:06 BP 121 / 85; Pulse 77; Resp 14; Pulse Ox 100% on R/A; ss 12:17 BP 128 / 88; Pulse 76; Resp 16; Pulse Ox 100% on R/A; ss NIH Stroke Scale Scores: 10:15 NIHSS Score: 0 ss MDM: 12:59 Patient medically screened. kdr 16:37 Data reviewed: vital signs, nurses notes, lab test result(s), EKG, radiologic studies. kdr Counseling: I had a detailed discussion with the patient and/or guardian regarding: the historical points, exam findings, and any diagnostic results supporting the discharge/admit diagnosis, lab results, radiology results, the need for outpatient follow up. ED course: The patient improved significantly with the time and interventions given. he was discharged in good condition and happy with the caer provided and the plan for discharge and follow-up. 08/14 10:09 Order name: Acetaminophen; Complete Time: 12:53 08/14 10:09 Order name: Basic Metabolic Panel; Complete Time: 12:53 08/14 10:09 Order name: CBC with Diff; Complete Time: 12:53 08/14 10:09 Order name: ETOH Level; Complete Time: 12:53 08/14 10:09 Order name: Hepatic Function; Complete Time: 12:53 08/14 10:09 Order name: PT-INR; Complete Time: 12:53 08/14 10:09 Order name: Ptt, Activated; Complete Time: 12:53 08/14 10:09 Order name: Salicylate; Complete Time: 12:53 sv 08/14 10:09 Order name: Urine Drug Screen; Complete Time: 12:53 sv 08/14 10:14 Order name: Type And Screen; Complete Time: 12:53 ss 08/14 12:22 Order name: Urine Dipstick--Ancillary (enter results) sv 08/14 12:36 Order name: ABO/RH no charge; Complete Time: 12:53 EDMS 08/14 13:35 Order name: Urine Dipstick-Ancillary EDMS 08/14 10:09 Order name: EKG; Complete Time: 10:10 sv 08/14 10:09 Order name: EKG - Nurse/Tech; Complete Time: 10:19 sv 08/14 10:09 Order name: IV Saline Lock; Complete Time: 10:19 sv 08/14 10:09 Order name: Labs collected and sent; Complete Time: 10:21 sv 08/14 10:09 Order name: Urine Dipstick-Ancillary (obtain specimen); Complete Time: 12:22 sv EC:26 Rate is 79 beats/min. Rhythm is regular, Sinus Rhythm with No ectopy. QRS [place] is kdr Normal. NH interval is normal. QRS interval is normal. QT interval is normal. Clinical impression: NSR w/ Non-specific ST/T Changes. Administered Medications: 10:30 Drug: NS 0.9% 1000 ml Route: IV; Rate: 1 bolus; Site: right antecubital; ss 12:18 Follow up: IV Status: Completed infusion; IV Intake: 1000ml ss 10:32 Drug: Zofran (Ondansetron) 4 mg Route: IVP; Site: right antecubital; ss 12:18 Follow up: Response: No adverse reaction; Nausea is decreased ss 10:34 Drug: Pepcid 20 mg Route: IVP; Site: right antecubital; ss 12:18 Follow up: Response: No adverse reaction ss 13:18 Drug: Maalox Suspension (200 mg-200 mg-20 mg/5 mL) 30 ml Route: PO; ss 13:43 Follow up: Response: No adverse reaction; Marked relief of symptoms ss Disposition: 08/14/20 12:59 Discharged to Home. Impression: Nausea and vomiting, Altered mental status, unspecified. - Condition is Stable. - Discharge Instructions: Confusion, Nausea and Vomiting, Adult, [id number]. - Prescriptions for promethazine 25 mg Oral Tablet - take 1 tablet by ORAL route every 6 hours As needed; 20 tablet. - Work release form, Medication Reconciliation Form, Thank You Letter form. - Follow up: Private Physician; When: 2 - 3 days; Reason: If symptoms return, Further diagnostic work-up, Recheck today's complaints, Continuance of care, Re-evaluation by your physician. - Problem is new. - Symptoms have improved. NIH Stroke Scale - NIH Stroke Score Date: 08/14/2020 Time: 10:15 Total Score = 0 1a. Level of Consciousness (LOC) - 0(Alert) 1b. Level of Consciousness (LOC) (Year \\T\\ Age) - 0(Both) 1c. LOC Commands (Open \\T\\ Closes Eyes/Fire Investigation Lieutenant) - 0(Both) 2. Best Gaze (Lateral Gaze Paresis) - 0(Normal) 3. Visual Field Loss - 0(No visual loss) 4. Facial Palsy - 0(Normal) 5a. Left Arm: Motor (10-second hold) - 0(No drift) 5b. Right Arm: Motor (10-second hold) - 0(No drift) 6a. Left Leg: Motor (5-second hold - always test supine) - 0(No drift) 6b. Right Leg: Motor (5-second hold - always test supine) - 0(No drift) 7. Limb Ataxia (finger/nose \\T\\ heel/castillo - test with eyes open) - 0(Absent) 8. Sensory Loss (pinprick arms/legs/face) - 0(Normal) 9. Best Language: Aphasia (description/naming/reading) - 0(No aphasia) 10. Dysarthria (speech clarity - read or repeat words) - 0(Normal) 11. Extinction and Inattention (visual/tactile/auditory/spatial/personal) - 0(No abnormality) Initials: ss Signatures: Dispatcher [employer] Karin Costello, Sam Swain RN, MD MD kdr Smirch, Shelby, RN RN ss Corrections: (The following items were deleted from the chart) 13:43 12:59 08/14/2020 12:59 Discharged to Home. Impression: Nausea and vomiting; ss Altered mental status, unspecified. Condition is Stable. Forms are Medication Reconciliation Form, Thank You Letter, Antibiotic Education, Prescription Opioid Use. Follow up: Private Physician; When: 2 - 3 days; Reason: If symptoms return, Further diagnostic work-up, Recheck today's complaints, Continuance of care, Re-evaluation by your physician. Problem is new. Symptoms have improved. kdr
[2020-08-14] MEDS ORDERED: MAGNES/ALUMIN/SIMET 30ML UCUP ONE (13:24)
[2020-08-14 13:35] LABS: Urine Blood NEGATIVE (NEG); Urine Glucose NEGATIVE (NEG); Urine Protein NEGATIVE (NEG); Urine Specific Gravity >1.030 (1.005-1.030)
[2020-08-15 10:09] VITALS: BP 128/88; TEMP 99; O2SAT 100
== END 2020-08-14 13:43 | disposition home or self-care (01) ==
LOC: ER 10:01
DX: R11.2 Nausea with vomiting, unspecified (principal); I10 Essential (primary) hypertension; Z88.6 Allergy status to analgesic agent; Z88.8 Allergy status to other drugs, medicaments and biological substances
CPT/HCPCS: 36415; 80048; 80076; 80307; 80320; 80329; 81003; 85025; 85610; 85730; 86850; 86900; 86901; 93005; 96361; 96374; 96375; 99284; J2405; J7030

== ENCOUNTER 2020-08-15 12:30 | Emergency (ER) | payer SELFPAY ==
--- OUTSIDE RECORDS SUMMARY | 2020-08-15 12:32 | XMS REPORT | Continuity of Care Document ---
:1990 Author Organization [facility] Address [address] [place] [address] Care Team Providers Name Role Phone Lab, [...] Facility Department ID 2020-08-06 2020-08-06 Laboratory Lab, [facility] [id number] 09:08:02 09:28:02 Only Fam [employer] [id number] [place] [id number] [place] [id number] [address] One Results This patient has no known results.
--- NOTE | 2020-08-15 13:29 | RAD REPORT ---
EXAM DESCRIPTION: CT - Head Brain Wo Cont - 08/15/2020 1:23 pm CLINICAL HISTORY: MENTAL STATUS CHANGE Headache, drowsiness COMPARISON: Head Brain Wo Cont dated 05/01/2020 TECHNIQUE: All CT scans are performed using dose optimization technique as appropriate and may inclu de automated exposure control or mA/KV adjustment according to patient size. FINDINGS: No intracranial hemorrhage, hydrocephalus or extra-axial fluid collection.No areas of brai n edema or evidence of midline shift. Mucous retention cyst or polyp is present in the right maxillary antrum. The paranasal sinuses and ma stoids are otherwise clear. The calvarium is intact. IMPRESSION: No acute intracranial abnormality.
[2020-08-15 13:32] LABS: Protime INR 1.26
[2020-08-15] MEDS ORDERED: NA CHLORIDE 0.9% 1,000 ML ONE (13:39)
[2020-08-15 13:40] LABS: Absolute Lymphocytes (CBC) 1.2 K/uL (0.7-4.9); Basophils % 0.9 % (0-1.3); Lymphocytes % 24.7 % (15.3-44.8); MPV 9.8 fL (7.6-11.3); RBC Red Blood Cell Count 4.61 M/uL (4.33-5.43)
[2020-08-15 13:48] LABS: ALT/SGPT 22 U/L (12-78); AST/SGOT 8 U/L (15-37); Albumin 3.9 g/dL (3.4-5.0); Alkaline Phosphatase 91 U/L (45-117); BUN Blood Urea Nitrogen 7 mg/dL (7-18); Bicarbonate 31 mmol/L (21-32); Bilirubin Direct 0.2 mg/dL (0-0.2); Bilirubin Total 0.5 mg/dL (0.2-1.0); Glucose Level 90 mg/dL (74-106); NT PRO-BNP 78 pg/mL (<125); Potassium 3.5 mmol/L (3.5-5.1); Protein, Total 7.2 g/dL (6.4-8.2); Sodium Level 141 mmol/L (136-145); Troponin (Emerg Dept Use Only) < 0.02 ng/mL (0.0-0.045)
--- NOTE | 2020-08-15 14:24 | RAD REPORT ---
EXAM DESCRIPTION: RAD - Chest Single View - 08/15/2020 1:53 pm CLINICAL HISTORY: DYSPNEA Chest pain. COMPARISON: Chest Pa And Lat (2 Views) dated 05/08/2018; Chest Pa And Lat (2 Views) dated 03/24/2016 FINDINGS: Portable technique limits examination quality. The lungs are grossly clear. The heart is normal in size. No displaced fractures. IMPRESSION: No acute intrathoracic process suspected.
[2020-08-15 15:03] LABS: Barbiturates NEGATIVE (NEGATIVE); Benzodiazepines NEGATIVE (NEGATIVE); Cocaine NEGATIVE (NEGATIVE); METHAMPHETAM NEGATIVE (NEGATIVE); Methadone NEGATIVE (NEGATIVE); Opiates NEGATIVE (NEGATIVE); Phencyclidine NEGATIVE (NEGATIVE); THC Cannibis NEGATIVE (NEGATIVE)
[2020-08-15 15:12] LABS: Urine Blood NEGATIVE (NEG); Urine Glucose NEGATIVE (NEG); Urine Protein NEGATIVE (NEG); Urine pH 7.5 (5.0-7.0)
--- NOTE | 2020-08-15 20:07 | EDPHYS ---
Physician Documentation [facility] Name: Brenden Washington Age: 30 yrs Sex: Male : 1990 Arrival Date: 08/15/2020 Time: 12:[address] Private MD: ED Physician Sam Mckeon HPI: 08/15 19:10 This 30 yrs old Male presents to ER via Carried with complaints of Syncope. jr8 19:10 Onset: The symptoms/episode began/occurred acutely, today. Duration: This was a single jr8 episode, that lasted an unknown period of time. Context: occurred at home. Associated injury: The patient did not suffer any apparent associated injury. Associated signs and symptoms: Pertinent positives: confusion. Current symptoms: confusion. The patient has experienced a previous episode. The patient has not recently seen a physician. Father of patient stated that this is the second time this has happened where he will be passed out and minimally responsive. Stated that it takes him several hours to come too. Has had also had bouts of nausea that has been going on now for over 3 months. Stated that he recently had GI scope with negative results but was put on omeprazole. Was seen yesterday for similar symptoms without any findings and was sent home feeling well at that time . Historical: - Allergies: 12:41 Aspirin (Anaphylaxis); hb 12:41 unknown HTN medication "starts with C"; hb - Home Meds: 12:41 carvedilol 12.5 mg Oral tab 1 tab 2 times per day [Active]; Famotidine Oral [Active]; hb Omeprazole Oral [Active]; - PMHx: 12:41 Asthma; Hypertension; hb - PSHx: 12:41 None; hb - Immunization history:: Adult Immunizations unknown. - Social history:: Smoking status: unknown. ROS: 19:10 Eyes: Negative for injury, pain, redness, and discharge, ENT: Negative for injury, jr8 pain, and discharge, Neck: Negative for injury, pain, and swelling, Cardiovascular: Negative for chest pain, palpitations, and edema, Respiratory: Negative for shortness of breath, cough, wheezing, and pleuritic chest pain, Abdomen/GI: Negative for abdominal pain, nausea, vomiting, diarrhea, and constipation, Back: Negative for injury and pain, MS/Extremity: Negative for injury and deformity, Skin: Negative for injury, rash, and discoloration. 19:10 Neuro: Positive for altered mental status, dizziness, loss of consciousness, weakness. Exam: 19:10 Eyes: Pupils equal round and reactive to light, extra-ocular motions intact. Lids and jr8 lashes normal. Conjunctiva and sclera are non-icteric and not injected. Cornea within normal limits. Periorbital areas with no swelling, redness, or edema. ENT: Nares patent. No nasal discharge, no septal abnormalities noted. Tympanic membranes are normal and external auditory canals are clear. Oropharynx with no redness, swelling, or masses, exudates, or evidence of obstruction, uvula midline. Mucous membranes moist. Neck: Trachea midline, no thyromegaly or masses palpated, and no cervical lymphadenopathy. Supple, full range of motion without nuchal rigidity, or vertebral point tenderness. No Meningismus. Cardiovascular: Regular rate and rhythm with a normal S1 and S2. No gallops, murmurs, or rubs. Normal PMI, no JVD. No pulse deficits. Respiratory: Lungs have equal breath sounds bilaterally, clear to auscultation and percussion. No rales, rhonchi or wheezes noted. No increased work of breathing, no retractions or nasal flaring. Abdomen/GI: Soft, non-tender, with normal bowel sounds. No distension or tympany. No guarding or rebound. No evidence of tenderness throughout. Back: No spinal tenderness. No costovertebral tenderness. Full range of motion. Skin: Warm, dry with normal turgor. Normal color with no rashes, no lesions, and no evidence of cellulitis. MS/ Extremity: Pulses equal, no cyanosis. Neurovascular intact. Full, normal range of motion. Neuro: Awake and alert, GCS 15, oriented to person, place, time, and situation. Cranial nerves II-XII grossly intact. Motor strength 5/5 in all extremities. Sensory grossly intact. Cerebellar exam normal. Normal gait. Vital Signs: 12:39 BP 152 / 103; Pulse 104; Resp 28; Temp 98.2; Pulse Ox 100% on R/A; Pain 0/10; hb 13:38 BP 133 / 90; Pulse 68; Resp 15; Pulse Ox 97% on R/A; ss 14:53 BP 124 / 91; Pulse 68; Resp 14; Pulse Ox 98% on R/A; Pain 0/10; ss 15:11 BP 122 / 83; Pulse 89; Resp 18; Pulse Ox 99% on R/A; ph 17:37 BP 134 / 91; Pulse 71; Resp 16; Pulse Ox 98% on R/A; Pain 0/10; ss 19:05 BP 135 / 78; Pulse 87; Resp 18; Pulse Ox 100% on R/A; mg2 12:39 Marks-Beth (FACES) hb MDM: 12:46 Patient medically screened. jr8 19:10 Data reviewed: vital signs, nurses notes, lab test result(s), EKG, radiologic studies, jr8 CT scan, MRI, plain films. Data interpreted: Pulse oximetry: on room air is 100 %. Interpretation: normal. Counseling: I had a detailed discussion with the patient and/or guardian regarding: the historical points, exam findings, and any diagnostic results supporting the discharge/admit diagnosis, lab results, radiology results. ED course: Patient again today came too after about 2 hours. Was able to talk to patient and denies any supplements or any other meds on a daily basis. Confirms that he has only had this one other time. Stated that it starts as weakness in his legs and dizzy feeling. Sat down today before he could fall. Stated that he then remembers only bits and pieces from there on out until he becomes completely normal. Denies any other symptoms during those times. 20:04 ED course: Could not get patient to do MRI once he was in the machine. Explained to him jr8 that there is no way we can tell him if everything is ok from an imaging stand point without MRI. Patient stated that he did not care and wants to go home. Stated that he is too claustrophobic to complete it. Told him that we could give him meds to help with this as well but still refuses. Patient A\\T\\O x 4. Of sound mind. Will d/c home to f/u with neurology . 08/15 12:57 Order name: Basic Metabolic Panel 8 08/15 12:57 Order name: CBC with Diff 8 08/15 12:57 Order name: LFT's 8 08/15 12:57 Order name: Magnesium [facility] 08/15 12:57 Order name: NT PRO-BNP [facility] 08/15 12:57 Order name: PT-INR 8 08/15 12:57 Order name: Troponin (emerg Dept Use Only) 08/15 12:57 Order name: UDS; Complete Time: 15:08 8 08/15 12:57 Order name: TSH; Complete Time: 13:58 8 08/15 12:57 Order name: T4 Free; Complete Time: 13:58 8 08/15 12:58 Order name: Basic Metabolic Panel; Complete Time: 13:58 EDMS 08/15 12:58 Order name: CBC with Automated Diff; Complete Time: 13:58 EDMS 08/15 12:58 Order name: Liver (Hepatic) Function; Complete Time: 13:58 EDMS 08/15 12:58 Order name: Magnesium; Complete Time: 13:58 EDMS 08/15 12:57 Order name: XRAY Chest (1 view); Complete Time: 14:35 8 08/15 12:57 Order name: EKG; Complete Time: 12:58 8 08/15 12:57 Order name: Cardiac monitoring; Complete Time: 13:23 8 08/15 12:57 Order name: EKG - Nurse/Tech; Complete Time: 13:50 8 08/15 12:57 Order name: IV Saline Lock; Complete Time: 13:23 8 08/15 12:57 Order name: Labs collected and sent; Complete Time: 13:23 8 08/15 12:57 Order name: O2 Per Protocol; Complete Time: 13:23 8 08/15 12:57 Order name: O2 Sat Monitoring; Complete Time: 13:23 8 08/15 12:57 Order name: CT Head Brain wo Cont; Complete Time: 13:58 8 08/15 12:58 Order name: NT PRO-BNP; Complete Time: 13:58 EDMS 08/15 12:58 Order name: Protime (+INR); Complete Time: 13:58 EDMS 08/15 12:58 Order name: Troponin (Emerg Dept Use Only); Complete Time: 13:58 EDMS 08/15 14:35 Order name: Urine Dipstick--Ancillary (enter results); Complete Time: 15:25 ds4 Administered Medications: 13:38 Drug: NS 0.9% 1000 ml Route: IV; Rate: 1000 ml; Site: right antecubital; ss 20:16 Follow up: Response: No adverse reaction; IV Status: Completed infusion 20:14 Not Given (Patient Refused): Ativan 1 mg IVP once Disposition: 22:02 Co-signature as Attending Physician, Sam Mckeon MD I agree with the assessment and kdr plan of care. Disposition: 08/15/20 20:06 Discharged to Home. Impression: Syncope and collapse, Altered mental status, unspecified. - Condition is Stable. - Discharge Instructions: Seizure, Adult, Syncope. - Medication Reconciliation Form, Thank You Letter, Antibiotic Education, Prescription Opioid Use form. - Follow up: Simeon Savage MD; When: 2 - 3 days; Reason: Recheck today's complaints, Continuance of care, Re-evaluation by your physician. - Problem is new. - Symptoms are resolved. Signatures: Dispatcher [employer] EDTN Sam Mckeon MD MD [facility] Merary Foreman RN RN Eze Redd PA PA jr8 Dunia Bennett RN RN Deisy Ariza RN RN Corrections: (The following items were deleted from the chart) 20:15 20:06 08/15/2020 20:06 Discharged to Home. Impression: Syncope and collapse; Altered mental status, unspecified. Condition is Stable. Forms are Medication Reconciliation Form, Thank You Letter, Antibiotic Education, Prescription Opioid Use. Follow up: Simeon Savage; When: 2 - 3 days; Reason: Recheck today's complaints, Continuance of care, Re-evaluation by your physician. Problem is new. Symptoms are resolved. jr8
--- NOTE | 2020-08-15 20:07 | ER ---
Nurse's Notes [facility] Name: Brenden Washington Age: 30 yrs Sex: Male : 1990 Arrival Date: 08/15/2020 Time: 12:[address] Private MD: Diagnosis: Syncope and collapse;Altered mental status, unspecified Presentation: 08/15 12:39 Chief complaint: Found down on ground by father, nonverbal upon arrival. Coronavirus hb screen: At this time, the client does not indicate any symptoms associated with coronavirus-19. Ebola Screen: No symptoms or risks identified at this time. Initial Sepsis Screen: Does the patient meet any 2 criteria? No. Patient's initial sepsis screen is negative. Does the patient have a suspected source of infection? No. Patient's initial sepsis screen is negative. Risk Assessment: Do you want to hurt yourself or someone else? Unable to obtain. Onset of symptoms was August 15, 2020. 12:39 Method Of Arrival: Carried hb 12:39 Acuity: ADI 2 hb Historical: - Allergies: 12:41 Aspirin (Anaphylaxis); hb 12:41 unknown HTN medication "starts with C"; hb - Home Meds: 12:41 carvedilol 12.5 mg Oral tab 1 tab 2 times per day [Active]; Famotidine Oral [Active]; hb Omeprazole Oral [Active]; - PMHx: 12:41 Asthma; Hypertension; hb - PSHx: 12:41 None; hb - Immunization history:: Adult Immunizations unknown. - Social history:: Smoking status: unknown. Screenin:00 Abuse screen: Denies threats or abuse. Denies injuries from another. Nutritional ph screening: No deficits noted. Tuberculosis screening: No symptoms or risk factors identified. Fall Risk Fall in past 12 months (25 points). No secondary diagnosis (0 pts). IV access (20 points). Ambulatory Aid- None/Bed Rest/Nurse Assist (0 pts). Gait- Weak (10 pts.). Mental Status- Oriented to own ability (0 pts). Total Duran Fall Scale indicates High Risk Score (45 or more points). Fall prevention measures have been instituted. Side Rails Up X 2 Placed Close to Nursing Station Frequent Obs/Assessments Occuring As available patient and family educated on Fall Prevention Program and Strategies. Assessment: 12:45 General: Appears ill, Behavior is responsive to painful stimuli only. Pt was seen in ED ss yesterday for same complaints, S/S. Father at bedside and states that patient's health seems to be declining over the past few months. . Pain: Unable to use pain scale. FLACC scale score is 0 out of 10. Neuro: Level of Consciousness is awake, obtunded, Oriented to none Pt is unable to verbally respond at this time. . Cardiovascular: Capillary refill < 3 seconds is brisk in bilateral fingers Patient's skin is warm and dry. Respiratory: Airway is patent Respiratory effort is even, unlabored, Respiratory pattern is regular, symmetrical, Breath sounds are clear bilaterally. GI: Abdomen is non-distended. EENT: Nares are clear Oral mucosa is moist. Derm: Skin is intact, is healthy with good turgor, Skin is dry. Musculoskeletal: Circulation, motion, and sensation intact. Range of motion: intact in all extremities, Swelling absent. 13:38 Reassessment: PT is back from CT. NS infusing freely. Pt is awake, oriented x 3. Is ss able to speak, but softly. Pt reports generalized weakness. Side rails up x2, call light within reach. Pt remains visible from nurses station. 13:45 General: Appears in no apparent distress. comfortable, Behavior is calm, cooperative. ss Neuro: Level of Consciousness is awake, alert, obeys commands, Oriented to person, place, time, situation. Respiratory: Respiratory effort is even, unlabored. Derm: Skin is intact, is healthy with good turgor, Skin is dry, Skin is pink, warm \\T\\ dry. normal. Musculoskeletal: Circulation, motion, and sensation intact. Range of motion: intact in all extremities, Swelling absent. 14:53 Reassessment: Patient appears in no apparent distress at this time. Patient and/or ss family updated on plan of care and expected duration. Pain level reassessed. Patient is alert, oriented x 3, equal unlabored respirations, skin warm/dry/pink. Is is awake, alert and oriented X 3. Awaiting MRI. 17:38 Reassessment: Patient appears in no apparent distress at this time. Awaiting for MRI. ss [place] repair technician states that it will be around [id number] before he goes to MRI. Patient denies pain at this time. Patient states feeling better. 18:48 Reassessment: Patient appears in no apparent distress at this time. Patient and/or ss family updated on plan of care and expected duration. Pain level reassessed. Patient is alert, oriented x 3, equal unlabored respirations, skin warm/dry/pink. Respiratory: Respiratory effort is even, unlabored. 19:05 Reassessment: Patient appears in no apparent distress at this time. Patient and/or mg2 family updated on plan of care and expected duration. Pain level reassessed. Patient is alert, oriented x 3, equal unlabored respirations, skin warm/dry/pink. patient sent to MRI. 20:14 Reassessment: Pt refusing MRI and medication, Eze ASHBY already talked to the Pt. wh Vital Signs: 12:39 BP 152 / 103; Pulse 104; Resp 28; Temp 98.2; Pulse Ox 100% on R/A; Pain 0/10; hb 13:38 BP 133 / 90; Pulse 68; Resp 15; Pulse Ox 97% on R/A; ss 14:53 BP 124 / 91; Pulse 68; Resp 14; Pulse Ox 98% on R/A; Pain 0/10; ss 15:11 BP 122 / 83; Pulse 89; Resp 18; Pulse Ox 99% on R/A; ph 17:37 BP 134 / 91; Pulse 71; Resp 16; Pulse Ox 98% on R/A; Pain 0/10; ss 19:05 BP 135 / 78; Pulse 87; Resp 18; Pulse Ox 100% on R/A; mg2 12:39 Kimberley (FACES) hb ED Course: 12:32 Patient arrived in ED. ll1 12:40 Triage completed. hb 12:41 Arm band placed on. hb 12:46 Eze Redd PA is PHCP. jr8 12:46 Sam Mckeon MD is Attending Physician. jr8 13:00 Patient has correct armband on for positive identification. Bed in low position. Call ph light in reach. Side rails up X 1. customer complaint service supervisor on. Pulse ox on. NIBP on. 13:23 CT Head Brain wo Cont In Process Unspecified. EDMS 13:25 Inserted saline lock: 20 gauge in right antecubital area, using aseptic technique. Blood collected. 13:37 Merary Foreman, BETO is Primary Nurse. ss 13:53 XRAY Chest (1 view) In Process Unspecified. EDMS 20:05 Simeon Savage MD is Referral Physician. jr8 20:15 No provider procedures requiring assistance completed. IV discontinued, intact, bleeding controlled, No redness/swelling at site. Administered Medications: 13:38 Drug: NS 0.9% 1000 ml Route: IV; Rate: 1000 ml; Site: right antecubital; 20:16 Follow up: Response: No adverse reaction; IV Status: Completed infusion 20:14 Not Given (Patient Refused): Ativan 1 mg IVP once Outcome: 20:06 Discharge ordered by . jr8 20:15 Discharged to home ambulatory. 20:15 Condition: stable 20:15 Discharge instructions given to patient, Instructed on discharge instructions, follow up and referral plans. POC Demonstrated understanding of instructions, follow-up care, POC 20:15 Patient left the ED. Signatures: Dispatcher [employer] EDUT Merary Foreman RN RN Eze Redd PA PA jr Sandra Shea RN BETO Dunia Bennett, BETO PÉREZ Deisy Ariza RN RN Giovanni Domínguez, RN BETO [facility] [place] Tim Gaxiola RN RN ll1
[2020-08-15] MEDS ORDERED: LORazepam 2 MG/ML VIAL ONE (20:17)
[2020-08-15 21:46] VITALS: TEMP 98.2
[2020-08-15 21:52] VITALS: BP 135/78; O2SAT 100
== END 2020-08-15 20:15 | disposition home or self-care (01) ==
LOC: ER 12:30
DX: R55 Syncope and collapse (principal); R41.82 Altered mental status, unspecified; J45.909 Unspecified asthma, uncomplicated; I10 Essential (primary) hypertension
CPT/HCPCS: 36415; 70450; 71045; 80048; 80076; 80307; 81003; 83735; 83880; 84439; 84443; 84484; 85025; 85610; 93005; 96360; 96361; 99284; J7030

== ENCOUNTER 2020-10-25 12:18 | Emergency (ER) | payer SELFPAY ==
--- OUTSIDE RECORDS SUMMARY | 2020-10-25 12:22 | XMS REPORT | Continuity of Care Document ---
:1990 Author Organization [facility] t Address [address] [place] [address] Dr. Esp[address]. [address] [place] [address] Care Team Providers Name Role Phone Lab, Eliezer Pob I Attending Clinician Unavailable Problems This patient has no known problems. Allergies, Adverse Reactions, Alerts This patient has no known allergies or adverse reactions. Medications This patient has no known medications. Procedures This patient has no known procedures. Encounters Start End Encounter Admission Attending Care Care Encounter Source Date/Time Date/Time Type Type Clinicians Facility Department ID 2020-08-06 2020-08-06 Laboratory Lab, Adc [facility] [id number] 09:08:02 09:28:02 Only Fam Pob I [facility] [id number] [place] [id number] [facility] [phone] [address] One Results This patient has no known results.
--- NOTE | 2020-10-25 13:01 | ER ---
Nurse's Notes [facility] Name: Brenden Washington Age: 30 yrs Sex: Male : 1990 Arrival Date: 10/25/2020 Time: 12:21 Bed 30 Private MD: Shravan Cuevas T Diagnosis: Gastritis, unspecified Presentation: 10/25 12:24 Chief complaint: Patient states: "I was at work and fell off of about 2 feet or so and jd3 i hit my stomach. the fall was caused by a known problem I am seeing Dr. Whitley for. the only problem is that the thing I am seeing the GI for isn't helping and I was hoping to get that looked at as well.". Coronavirus screen: At this time, the client does not indicate any symptoms associated with coronavirus-19. Ebola Screen: Patient negative for fever greater than or equal to 101.5 degrees Fahrenheit, and additional compatible Ebola Virus Disease symptoms. Initial Sepsis Screen: Does the patient meet any 2 criteria? No. Patient's initial sepsis screen is negative. Does the patient have a suspected source of infection? No. Patient's initial sepsis screen is negative. Risk Assessment: Do you want to hurt yourself or someone else? Patient reports no desire to harm self or others. Onset of symptoms was October 25, 2020. 12:24 Method Of Arrival: Ambulatory jd3 12:24 Acuity: ADI 3 jd3 Triage Assessment: 13:00 General: Appears in no apparent distress. Behavior is cooperative, anxious. zb Historical: - Allergies: 12:28 Aspirin (Anaphylaxis); jd3 12:28 Coreg; jd3 - Home Meds: 12:28 Omeprazole Oral [Active]; Famotidine Oral [Active]; jd3 - PMHx: 12:28 Asthma; Hypertension; jd3 - PSHx: 12:28 None; jd3 - Immunization history:: Adult Immunizations up to date. - Social history:: Smoking status: Patient reports the use of cigarette tobacco products, denies chronic smoking, but will smoke occasionally. - Family history:: not pertinent. Screenin:00 Abuse screen: Denies threats or abuse. Denies injuries from another. Nutritional zb screening: No deficits noted. Tuberculosis screening: No symptoms or risk factors identified. Fall Risk None identified. Assessment: 13:00 General: Appears in no apparent distress. uncomfortable, Behavior is anxious. Pain: zb Complains of pain in left upper quadrant and right upper quadrant Pain currently is 6 out of 10 on a pain scale. Neuro: Level of Consciousness is awake, alert, obeys commands, Oriented to person, place, time. Cardiovascular: Capillary refill < 3 seconds Patient's skin is warm and dry. Respiratory: Airway is patent Respiratory effort is even, unlabored, Respiratory pattern is regular, symmetrical. GI: Abdomen is flat, Bowel sounds present X 4 quads. Abdomen is tender to palpation in epigastric area, right upper quadrant, left upper quadrant, right lower quadrant and left lower quadrant Reports nausea. : No signs and/or symptoms were reported regarding the genitourinary system. EENT: No signs and/or symptoms were reported regarding the EENT system. Derm: Skin is intact, is healthy with good turgor, Skin is dry, Skin is normal, Skin temperature is warm. Musculoskeletal: Circulation, motion, and sensation intact. Range of motion: intact in all extremities. Vital Signs: 12:28 BP 129 / 99; Pulse 80; Resp 16 S; Temp 98.4(TE); Pulse Ox 99% on R/A; Weight 63.5 kg jd3 (R); Height 5 ft. 8 in. (172.72 cm) (R); Pain 5/10; 12:28 Body Mass Index 21.29 (63.50 kg, 172.72 cm) jd3 ED Course: 12:21 Patient arrived in ED. am2 12:21 Shravan Cuevas MD is Private Physician. am2 12:26 Triage completed. jd3 12:29 Arm band placed on. jd3 12:41 Bacilio Andujar MD is Attending Physician. amanda 13:00 Patient has correct armband on for positive identification. Pulse ox on. NIBP on. Door zb closed. Noise minimized. 13:00 No provider procedures requiring assistance completed. Patient did not have IV access zb during this emergency room visit. 13:01 Shravan Cuevas MD is Referral Physician. amanda 13:01 Del Mccormack MD is Referral Physician. amanda 13:13 Candace Dumont RN is Primary Nurse. zb Administered Medications: No medications were administered Outcome: 13:00 Discharged to home ambulatory. zb 13:00 Condition: stable 13:00 Discharge instructions given to patient, Instructed on discharge instructions, follow up and referral plans. medication usage, Demonstrated understanding of instructions, follow-up care, medications, Prescriptions given X 2. 13:01 Discharge ordered by . amanda 13:15 Patient left the ED. zb Signatures: Bacilio Andujar MD MD cha Moreno, Amanda am2 Davies, Jonathon RN RN Candace Brice RN RN roas
--- NOTE | 2020-10-25 13:01 | EDPHYS ---
Physician Documentation [facility] Name: Brenden Washington Age: 30 yrs Sex: Male : 1990 Arrival Date: 10/25/2020 Time: 12:21 Bed 30 Private MD: Shravan Cuevas T ED Physician Bacilio Andujar HPI: 10/25 12:58 This 30 yrs old Male presents to ER via Ambulatory with complaints of amanda Abdominal Pain, Fall Injury, General Weakness. 12:58 Details of fall: The patient fell from an upright position, while walking. Onset: The amanda symptoms/episode began/occurred just prior to arrival. Associated injuries: The patient sustained injury to the abdomen, specifically the right upper quadrant and left upper quadrant. Severity of symptoms: At their worst the symptoms were mild, in the emergency department the symptoms are unchanged. The patient has not experienced similar symptoms in the past. Historical: - Allergies: 12:28 Aspirin (Anaphylaxis); jd3 12:28 Coreg; jd3 - Home Meds: 12:28 Omeprazole Oral [Active]; Famotidine Oral [Active]; jd3 - PMHx: 12:28 Asthma; Hypertension; jd3 - PSHx: 12:28 None; jd3 - Immunization history:: Adult Immunizations up to date. - Social history:: Smoking status: Patient reports the use of cigarette tobacco products, denies chronic smoking, but will smoke occasionally. - Family history:: not pertinent. ROS: 12:58 Constitutional: Negative for fever, chills, and weight loss, Eyes: Negative for injury, amanda pain, redness, and discharge, ENT: Negative for injury, pain, and discharge, Neck: Negative for injury, pain, and swelling, Cardiovascular: Negative for chest pain, palpitations, and edema, Respiratory: Negative for shortness of breath, cough, wheezing, and pleuritic chest pain, Back: Negative for injury and pain, : Negative for injury, bleeding, discharge, and swelling, MS/Extremity: Negative for injury and deformity, Skin: Negative for injury, rash, and discoloration, Neuro: Negative for headache, weakness, numbness, tingling, and seizure, Psych: Negative for depression, anxiety, suicide ideation, homicidal ideation, and hallucinations, Allergy/Immunology: Negative for hives, rash, and allergies, Endocrine: Negative for neck swelling, polydipsia, polyuria, polyphagia, and marked weight changes, Hematologic/Lymphatic: Negative for swollen nodes, abnormal bleeding, and unusual bruising. 12:58 Abdomen/GI: Positive for abdominal pain, of the right upper quadrant and left upper quadrant. Exam: 12:58 Constitutional: This is a well developed, well nourished patient who is awake, alert, amanda and in no acute distress. Head/Face: Normocephalic, atraumatic. Eyes: Pupils equal round and reactive to light, extra-ocular motions intact. Lids and lashes normal. Conjunctiva and sclera are non-icteric and not injected. Cornea within normal limits. Periorbital areas with no swelling, redness, or edema. ENT: Nares patent. No nasal discharge, no septal abnormalities noted. Tympanic membranes are normal and external auditory canals are clear. Oropharynx with no redness, swelling, or masses, exudates, or evidence of obstruction, uvula midline. Mucous membranes moist. Neck: Trachea midline, no thyromegaly or masses palpated, and no cervical lymphadenopathy. Supple, full range of motion without nuchal rigidity, or vertebral point tenderness. No Meningismus. Chest/axilla: Normal chest wall appearance and motion. Nontender with no deformity. No lesions are appreciated. Cardiovascular: Regular rate and rhythm with a normal S1 and S2. No gallops, murmurs, or rubs. Normal PMI, no JVD. No pulse deficits. Respiratory: Lungs have equal breath sounds bilaterally, clear to auscultation and percussion. No rales, rhonchi or wheezes noted. No increased work of breathing, no retractions or nasal flaring. Abdomen/GI: Soft, non-tender, with normal bowel sounds. No distension or tympany. No guarding or rebound. No evidence of tenderness throughout. Back: No spinal tenderness. No costovertebral tenderness. Full range of motion. Skin: Warm, dry with normal turgor. Normal color with no rashes, no lesions, and no evidence of cellulitis. MS/ Extremity: Pulses equal, no cyanosis. Neurovascular intact. Full, normal range of motion. Neuro: Awake and alert, GCS 15, oriented to person, place, time, and situation. Cranial nerves II-XII grossly intact. Motor strength 5/5 in all extremities. Sensory grossly intact. Cerebellar exam normal. Normal gait. Psych: Awake, alert, with orientation to person, place and time. Behavior, mood, and affect are within normal limits. Vital Signs: 12:28 BP 129 / 99; Pulse 80; Resp 16 S; Temp 98.4(TE); Pulse Ox 99% on R/A; Weight 63.5 kg jd3 (R); Height 5 ft. 8 in. (172.72 cm) (R); Pain 5/10; 12:28 Body Mass Index 21.29 (63.50 kg, 172.72 cm) jd3 MDM: 12:41 Patient medically screened. [facility] 13:00 Differential diagnosis: contusion. Data reviewed: vital signs, nurses notes. Data [facility] interpreted: pvc monitor: rate is 80 beats/min, rhythm is regular, Pulse oximetry: on room air is 99 %. Test interpretation: by ED physician or midlevel provider:. Counseling: I had a detailed discussion with the patient and/or guardian regarding: the historical points, exam findings, and any diagnostic results supporting the discharge/admit diagnosis, the need for outpatient follow up, for definitive care, a family practitioner, a school counselor. Administered Medications: No medications were administered Disposition: 10/25/20 13:01 Discharged to Home. Impression: Gastritis, unspecified. - Condition is Stable. - Discharge Instructions: Abdominal Pain, Adult, Gastritis, Adult, Gastritis, Adult, [id number], Abdominal Pain, Adult, [id number]. - Prescriptions for Pepcid 20 mg Oral Tablet - take 1 tablet by ORAL route every 12 hours for 10 days; 20 tablet. Zofran 4 mg Oral Tablet - take 1 tablet by ORAL route every 12 hours As needed; 20 tablet. - Medication Reconciliation Form, Thank You Letter, Antibiotic Education, Prescription Opioid Use, Work release form form. - Follow up: Shravan Cuevas MD; When: 2 - 3 days; Reason: Recheck today's complaints, Continuance of care, Re-evaluation by your physician. Follow up: Del Mccormack MD; When: 2 - 3 days; Reason: Recheck today's complaints, Re-evaluation by your physician. - Problem is new. - Symptoms have improved. Signatures: Bacilio Andujar MD MD cha Davies, Jonathon, RN RN jd3 Brown, Candace, RN RN zb Corrections: (The following items were deleted from the chart) 13:15 13:01 10/25/2020 13:01 Discharged to Home. Impression: Gastritis, unspecified. zb Condition is Stable. Forms are Medication Reconciliation Form, Thank You Letter, Antibiotic Education, Prescription Opioid Use. Follow up: Shravan Cuevas; When: 2 - 3 days; Reason: Recheck today's complaints, Continuance of care, Re-evaluation by your physician. Follow up: Del Mccormack; When: 2 - 3 days; Reason: Recheck today's complaints, Re-evaluation by your physician. Problem is new. Symptoms have improved. amanda
[2020-10-25 13:20] VITALS: BP 129/99; TEMP 98.4; O2SAT 99
== END 2020-10-25 13:15 | disposition home or self-care (01) ==
LOC: ER 12:18
DX: K29.70 Gastritis, unspecified, without bleeding (principal); F17.210 Nicotine dependence, cigarettes, uncomplicated; J45.909 Unspecified asthma, uncomplicated; I10 Essential (primary) hypertension
CPT/HCPCS: 99283

== ENCOUNTER 2021-08-07 14:11 | Emergency (ER) | payer SELFPAY ==
--- OUTSIDE RECORDS SUMMARY | 2021-08-07 14:13 | XMS REPORT | Continuity of Care Document ---
:1990 Author Organization [facility] t Address [address] [place] [address] Care Team Providers Name Role Phone Sofi CARRASCO Primary Care Physician Unavailable REJI, Vanessa Attending Clinician Unavailable Reji CLINICAL RN MANAGER, F Attending Clinician Doctor Unassigned, Name Attending Clinician Unavailable JAME Attending Clinician Unavailable Lab, Fam Pob I Attending Clinician Unavailable Jame CLINICAL RN MANAGER Attending Clinician Demetrice HAINES Attending Clinician Unavailable Payers Payer Name Policy Type Policy Number Effective Date Expiration Date S christ COVID19 [facility] [id number] 2020 UNINSURED 00:00:00 Problems Condition Condition Condition Status Onset Resolution Last Treating Co mments Source Name Details Category Date Date Treatment Clinician Date No known No known Disease Unive rs active active ity of problems problems [facility] Allergies, Adverse Reactions, Alerts Allergy Allergy Status Severity Reaction(s) Onset Inactive Treating Comm ents Source Name Type Date Date Clinician ASPIRIN DRUG Active Other-Cmnt 2020-06 Unive rs INGREDI 0-28 ity of 00:00: [place] 00 Medical Branch CARVEDIL DRUG Active Other-Cmnt 2020-06 Univ ers OL INGREDI 0-28 ity of 00:00: [place] 00 Medical Branch Aspirin Propensi Active Other - See 2020-06 "syncope" Univers ty to comments 0-28 ity of adverse 00:00: [place] reaction 00 Medical s Branch Carvedil Propensi Active Other - See 2020-06 U nivers ol ty to comments 0-28 ity of adverse 00:00: [place] reaction 00 Medical Branch NO KNOWN Drug Active Univers ALLERGIE Class ity of S [facility] Social History Social Habit Start Date Stop Date Quantity Comments Source Exposure to Not sure [facility] SARS-CoV-2 (event) Medica l Branch Sex Assigned At [birth year] [facility] 00:00:00 00:00:00 Medical Branch Smoking Status Start Date Stop Date Source Unknown if ever smoked [facility] Medications Ordered Filled Start Stop Current Ordering Indication Dosage Frequency Signature Comments Components Source Medication Medication Date Date Medication? Clinician (SIG) Name Name NaCl 0.9% 2021- Yes 1000mL at 999 Uni vers (NS) bolus 2-16 02-17 mL/hr, ity of infusion 18:15: 06:14 1,000 mL, Marko as 1,000 mL 00 :00 IV Medical Infusion, Branch ONCE, 1 dose, On Wed07/30/21 at 1215, TERENCE No known No Univers medications 16 ity of 11:19: [address] Vital Signs Vital Name Observation Time Observation Value Comments Source Systolic blood 2021-07-30 16:42:00 144 mm[Hg] Univer sity [facility] Diastolic blood 2021-07-30 16:42:00 98 mm[Hg] Unive [facility] Heart rate 2021-07-30 16:42:00 87 /min [facility] Body temperature 2021-07-30 16:42:00 37.06 [facility] Respiratory rate 2021-07-30 16:42:00 14 /min [facility] Body height 2021-07-30 16:42:00 172.7 cm [facility] Body weight 2021-07-30 16:42:00 69.899 kg [facility] BMI 2021-07-30 16:42:00 23.43 kg/m2 [facility] Oxygen saturation in 2021-07-30 16:42:00 100 /min [facility] Arterial blood by [facility] Pulse oximetry Branch Systolic blood 2021-04-10 16:32:00 146 mm[Hg] Univer sity of [facility] Diastolic blood 2021-04-10 16:32:00 99 mm[Hg] Unive rsity of pressure [facility] Heart rate 2021-04-10 16:32:00 89 /min Universi ty of [facility] Body temperature 2021-04-10 16:32:00 36.89 [facility] Respiratory rate 2021-04-10 16:32:00 17 /min [facility] Body weight 2021-04-10 16:32:00 68.04 kg [facility] Oxygen saturation in 2021-04-10 16:32:00 100 /min [facility] Arterial blood by [facility] Pulse oximetry [place] Procedures Procedure Date / Time Performed Performing Clinician Sour e NOTICE OF PRIVACY 2021-07-30 16:41:12 Doctor Unassigned, No [facility] [place] PRACTICES Name Medical Branch CONSENT/REFUSAL FOR 2021-07-30 16:37:50 Doctor Unassigned, No [facility] [place] DIAGNOSIS AND Name Medical Branch TREATMENT CONSENT/REFUSAL FOR 2021-04-10 16:29:21 Doctor Unassigned, No [facility] [place] DIAGNOSIS AND Name Medical Branch TREATMENT Encounters Start End Encounter Admission Attending Care Care Encounter Source Date/Time Date/Time Type Type Clinicians Facility Department ID 2021-07-30 2021-07-30 Emergency X [facility] ERT [id number] Univers 10:45:00 11:33:00 YANI ity of [facility] 2021-07-30 2021-07-30 Emergency [facility] [id number] Univers 10:45:00 11:33:00 Yani MCKEON [id number] ity of [place] [id number] [facility] [id number] [facility] 084 Branch 2021-07-30 2021-07-30 Orders Doctor MCCARTNEY [id number] Univers 00:00:00 00:00:00 Only Unassigned, MARY [id number] ity of [place] [facility] [id number] Marko [id number] [facility] 009 Branch 2021-04-10 2021-04-[address] [facility] ERT [id number] Univers 11:33:00 12:08:00 ity of [facility] 2021-04-10 2021-04-10 Emergency TRAUMA [id number] Univers 11:33:00 12:08:00 CENTER [id number] [id number] [address] 2020-08-06 2020-08-06 Outpatient R JAME [facility] [id number] Univers 09:40:00 09:40:00 ROSIBEL ity [facility] 2020-08-06 2020-08-06 Laboratory Lab, [facility] Fam Pob I [facility] [id number] Univers 09:08:02 09:28:02 Only Rosibel Kilgore [id number] ity of Secretary [id number] Marko as Professio [id number] Pr dical [address] 2020-08-06 2020-08-06 Laboratory Lab, [facility] [id number] 09:08:02 09:28:02 Only Fam Pob I Health [id number] Secretary [id number] Professio [id number] [address] 2020-08-05 2020-08-05 Outpatient R [facility] [id number] Univers 17:40:00 17:40:00 [id number] ity [facility] 2020-07-19 2020-07-19 Outpatient [facility] [id number] Univers 15:40:00 15:11:52 JERICA hook o f [facility] Results This patient has no known results.
[2021-08-07 15:11] LABS: Absolute Lymphocytes (CBC) 1.2 K/uL (0.7-4.9); Lymphocytes % 10.6 % (15.3-44.8); MPV 8.1 fL (7.6-11.3); RBC Red Blood Cell Count 5.15 M/uL (4.33-5.43)
[2021-08-07] MEDS ORDERED: METOCLOPRAMIDE 10 MG/2mL INJ ONE (15:11)
[2021-08-07] MEDS ORDERED: DIPHENHYDRAMINE 50 MG/ML VIAL ONE (15:12)
[2021-08-07] MEDS ORDERED: NA CHLORIDE 0.9% 250 ML ONE (15:12)
[2021-08-07] MEDS ORDERED: NA CHLORIDE 0.9% 1,000 ML ONE (15:12)
[2021-08-07 15:31] LABS: ALT/SGPT 32 U/L (12-78); AST/SGOT 17 U/L (15-37); Albumin 4.3 g/dL (3.4-5.0); Alkaline Phosphatase 91 U/L (45-117); BUN Blood Urea Nitrogen 16 mg/dL (7-18); Bicarbonate 32 mmol/L (21-32); Bilirubin Direct 0.1 mg/dL (0-0.2); Bilirubin Total 0.5 mg/dL (0.2-1.0); Glucose Level 99 mg/dL (74-106); Lipase 90 U/L (73-393); Potassium 3.4 mmol/L (3.5-5.1); Protein, Total 8.2 g/dL (6.4-8.2); Sodium Level 138 mmol/L (136-145)
--- NOTE | 2021-08-07 16:12 | EDPHYS ---
Physician Documentation [facility] Name: Brenden Washington Age: 31 yrs Sex: Male : 1990 Arrival Date: 08/07/2021 Time: 14:21 Bed 24 Private MD: ED Physician Sam Mckeon HPI: 08/07 15:00 This 31 yrs old Male presents to ER via EMS with complaints of Nausea/Vomiting.jmm 15:00 The patient presents to the emergency department with nausea, vomiting, abdominal pain. jmm Onset: The symptoms/episode began/occurred 1 day(s) ago. Possible causes: flare up of bowel problem. The symptoms are aggravated by nothing. The symptoms are alleviated by nothing. Associated signs and symptoms: Pertinent positives: abdominal pain, Pertinent negatives: fever. The patient has experienced similar episodes in the past, chronically. Historical: - Allergies: 14:26 Aspirin (Anaphylaxis); eo2 14:26 Coreg; eo2 - Home Meds: 14:26 Famotidine Oral [Active]; Omeprazole Oral [Active]; carvedilol 12.5 mg Oral tab 1 tab 2 eo2 times per day [Active]; - PMHx: 14:26 Asthma; Hypertension; eo2 - Immunization history:: Client reports having NOT received the Covid vaccine. Client reports having NOT received the Covid vaccine. - Social history:: Smoking status: Patient denies any tobacco usage or history of. ROS: 15:00 Constitutional: Negative for fever, chills, and weight loss, Cardiovascular: Negative jmm for chest pain, palpitations, and edema, Respiratory: Negative for shortness of breath, cough, wheezing, and pleuritic chest pain. 15:00 Abdomen/GI: Positive for abdominal pain, nausea and vomiting. 15:00 All other systems are negative. Exam: 15:00 Constitutional: This is a well developed, well nourished patient who is awake, alert, jmm and in no acute distress. Head/Face: atraumatic. Eyes: EOMI, no conjunctival erythema appreciated ENT: Moist Mucus Membranes Neck: Trachea midline, Supple Chest/axilla: Normal chest wall appearance and motion. Cardiovascular: Regular rate and rhythm. No edema appreciated Respiratory: Normal respirations, no respiratory distress appreciated 15:00 Skin: General appearance color normal MS/ Extremity: Moves all extremities, no obvious deformities appreciated, no edema noted to the lower extremities Neuro: Awake and alert Psych: Behavior is normal, Mood is normal, Patient is cooperative and pleasant 15:00 Abdomen/GI: Inspection: abdomen appears normal, Bowel sounds: normal, Palpation: soft, nontender, in all quadrants. Vital Signs: 14:22 BP 145 / 100; Pulse 92; Resp 17; Temp 98.9; Pulse Ox 99% ; Weight 70.31 kg; Height 5 eo2 ft. 8 in. (172.72 cm); Pain 5/10; 14:30 BP 140 / 96; Pulse 97; Resp 17; Pulse Ox 99% ; eo2 15:00 BP 133 / 94; Pulse 92; Resp 17; Pulse Ox 98% ; Pain 5/10; eo2 16:15 BP 131 / 93; Pulse 95; Resp 17; Pulse Ox 100% ; Pain 4/10; eo2 14:22 Body Mass Index 23.57 (70.31 kg, 172.72 cm) eo2 MDM: 15:24 Patient medically screened. [facility] 16:11 Data reviewed: vital signs, nurses notes. Counseling: I had a detailed discussion with elinor the patient and/or guardian regarding: the historical points, exam findings, and any diagnostic results supporting the discharge/admit diagnosis, lab results, the need for outpatient follow up, to return to the emergency department if symptoms worsen or persist or if there are any questions or concerns that arise at home. 08/07 15:00 Order name: Basic Metabolic Panel; Complete Time: 15: [facility] 08/07 15:00 Order name: CBC with Diff; Complete Time: : [facility] 08/07 15:00 Order name: Hepatic Function; Complete Time: : [facility] 08/07 15:00 Order name: Lipase; Complete Time: : [facility] 08/07 15:00 Order name: IV Saline Lock; Complete Time: : [facility] 08/07 15:00 Order name: Labs collected and sent; Complete Time: 15: [facility] Administered Medications: 15:19 Drug: NS 0.9% 1000 ml Route: IV; Rate: 1 bolus; Site: left antecubital; eo2 16:23 Follow up: Response: No adverse reaction; IV Status: Completed infusion; IV Intake: eo2 1000ml 15:20 Drug: diphenhydrAMINE 25 mg Route: IVP; Site: left antecubital; eo2 16:15 Follow up: Response: No adverse reaction eo2 15:21 Drug: Reglan (metoCLOPramide) 20 mg {Note: infused in NS 250ML.} Route: IVP; Site: left eo2 antecubital; 16:15 Follow up: Response: No adverse reaction eo2 Disposition: 17:42 Co-signature as Attending Physician, Sam Mckeon MD I agree with the assessment and kdr plan of care. Disposition Summary: 08/07/21 16:11 Discharge Ordered Location: Home [facility] Condition: Stable jmm Diagnosis - Other abdominal pain jmm - Vomiting jmm Followup: jm - With: Private Physician - When: 2 - 3 days - Reason: Recheck today's complaints, Continuance of care, Re-evaluation by your physician Discharge Instructions: - Discharge Summary Sheet jmm - Abdominal Pain, Adult jmm Forms: - Medication Reconciliation Form [facility] - Thank You Letter jm - Antibiotic Education jmm - Prescription Opioid Use [facility] Signatures: Dispatcher [employer] EDSam Nunez MD MD kdr William Gao PA PA m Chantel Leroy, RN RN eo2
--- NOTE | 2021-08-07 16:12 | ER ---
Nurse's Notes [facility] Name: Brenden Washington Age: 31 yrs Sex: Male : 1990 Arrival Date: 08/07/2021 Time: 14:21 Bed 24 Private MD: Diagnosis: Other abdominal pain;Vomiting Presentation: 08/07 14:22 Chief complaint: Patient states: intermittent abd pain onset this morning EMS states: eo2 abd pain onset this morning, weakness, vomiting bile with scant blood, possible crohn's disease diagnosis. Coronavirus screen: Vaccine status: Patient reports being unvaccinated. Client denies travel out of the [place] in the last 14 days. Ebola Screen: Patient negative for fever greater than or equal to 101.5 degrees Fahrenheit, and additional compatible Ebola Virus Disease symptoms Patient denies exposure to infectious person. Patient denies travel to an Ebola-affected area in the 21 days before illness onset. Initial Sepsis Screen: Does the patient meet any 2 criteria? No. Patient's initial sepsis screen is negative. Does the patient have a suspected source of infection? No. Patient's initial sepsis screen is negative. Risk Assessment: Do you want to hurt yourself or someone else? Patient reports no desire to harm self or others. Onset of symptoms is unknown. 14:22 Method Of Arrival: EMS: [facility] eo2 14:22 Acuity: ADI 3 eo2 Triage Assessment: 14:26 General: Appears in no apparent distress. comfortable, Behavior is calm, cooperative. eo2 Pain: Complains of pain in abdomen. Neuro: Level of Consciousness is awake, alert, obeys commands, Oriented to person, place, time, Denies dizziness, headache. Cardiovascular: Denies chest pain, shortness of breath, Capillary refill < 3 seconds. Respiratory: Airway is patent Trachea midline Respiratory effort is even, unlabored, Respiratory pattern is regular, symmetrical, Breath sounds are clear bilaterally. GI: Reports nausea, vomiting, intermittent abd pain onset this morning. Historical: - Allergies: 14:26 Aspirin (Anaphylaxis); eo2 14:26 Coreg; eo2 - Home Meds: 14:26 Famotidine Oral [Active]; Omeprazole Oral [Active]; carvedilol 12.5 mg Oral tab 1 tab 2 eo2 times per day [Active]; - PMHx: 14:26 Asthma; Hypertension; eo2 - Immunization history:: Client reports having NOT received the Covid vaccine. Client reports having NOT received the Covid vaccine. - Social history:: Smoking status: Patient denies any tobacco usage or history of. Screenin:30 Abuse screen: Denies threats or abuse. Denies injuries from another. Nutritional eo2 screening: No deficits noted. Tuberculosis screening: No symptoms or risk factors identified. Fall Risk None identified. Assessment: 14:29 Reassessment: see triage. GI: Abdomen is flat, non-distended, see triage documentation. eo2 Vital Signs: 14:22 BP 145 / 100; Pulse 92; Resp 17; Temp 98.9; Pulse Ox 99% ; Weight 70.31 kg; Height 5 eo2 ft. 8 in. (172.72 cm); Pain 5/10; 14:30 BP 140 / 96; Pulse 97; Resp 17; Pulse Ox 99% ; eo2 15:00 BP 133 / 94; Pulse 92; Resp 17; Pulse Ox 98% ; Pain 5/10; eo2 16:15 BP 131 / 93; Pulse 95; Resp 17; Pulse Ox 100% ; Pain 4/10; eo2 14:22 Body Mass Index 23.57 (70.31 kg, 172.72 cm) eo2 ED Course: 14:21 Patient arrived in ED. eo2 14:22 Chantel Leroy, RN is Primary Nurse. eo2 14:26 Triage completed. eo2 14:26 Arm band placed on. eo2 14:27 Inserted saline lock: 20 gauge in left antecubital area, using aseptic technique. lr4 14:30 No provider procedures requiring assistance completed. eo2 14:30 Patient has correct armband on for positive identification. Pulse ox on. NIBP on. Door eo2 closed. Noise minimized. Warm blanket given. 14:32 [facility] Gao [facility] 14:32 Sam Mckeon MD is Attending Physician. [facility] 16:15 IV discontinued, intact. eo2 Administered Medications: 15:19 Drug: NS 0.9% 1000 ml Route: IV; Rate: 1 bolus; Site: left antecubital; eo2 16:23 Follow up: Response: No adverse reaction; IV Status: Completed infusion; IV Intake: eo2 1000ml 15:20 Drug: diphenhydrAMINE 25 mg Route: IVP; Site: left antecubital; eo2 16:15 Follow up: Response: No adverse reaction eo2 15:21 Drug: Reglan (metoCLOPramide) 20 mg {Note: infused in NS 250ML.} Route: IVP; Site: left eo2 antecubital; 16:15 Follow up: Response: No adverse reaction eo2 Intake: 16:23 IV: 1000ml; Total: 1000ml. eo2 Outcome: 16:11 Discharge ordered by MD. robles 16:15 Discharged to home ambulatory. eo2 16:15 Condition: stable 16:15 Discharge instructions given to patient, Instructed on discharge instructions, follow up and referral plans. Demonstrated understanding of instructions, follow-up care. 16:24 Patient left the ED. eo2 Signatures: William Gao PA PA jmm Owoade, Eunice, RN RN eo2 Zayda Pate RN RN lr4 Corrections: (The following items were deleted from the chart) 16:23 16:20 IV Status: Completed infusion; IV Intake: 1000ml eo2 eo2
[2021-08-07 17:21] VITALS: TEMP 98.9
[2021-08-07 17:25] VITALS: BP 131/93; O2SAT 100
== END 2021-08-07 16:24 | disposition home or self-care (01) ==
LOC: ER 14:11
DX: R10.9 Unspecified abdominal pain (principal); R11.2 Nausea with vomiting, unspecified; I10 Essential (primary) hypertension; Z88.6 Allergy status to analgesic agent; Z88.8 Allergy status to other drugs, medicaments and biological substances
CPT/HCPCS: 36415; 80048; 80076; 83690; 85025; 96361; 96374; 96375; 99284; J1200; J2765; J7030; J7050

== ENCOUNTER → 2023-07-20 | Emergency (ER) | payer SELFPAY ==
--- OUTSIDE RECORDS SUMMARY | 2023-07-20 09:52 | XMS REPORT | Continuity of Care Document ---
Author Name Unknown Address [address] [facility] [address] [place] [address] [facility] thconnect Address [address] [facility] [place] [address] Care Team Providers Care Checkout Operator Name Role Phone Pcp-None Primary Care Physician Unavailab Shan De Luna Attending Clinician Unavailable Kameron MULLER Attending Clinician Unavailable Kameron Lino Attending Clinician [phone] KERRY FLORES Attending Clinician Unavailab Kerry Rdz DO Attending Clinician [phone] YANI MENDOZA Attending Clinician Unavaila Yani Soto Attending Clinician [phone] Doctor Unassigned, [place] Attending Clinician U navailROSIBEL Braun Attending Clinician Unavailable Lab, [facility] Pob I Attending Clinician Unavailab Rosibel Burris Attending Clinician [phone] JERICA HAINES Attending Clinician Unavailab josh Payers Payer Name Policy Type Policy Number Effective Date Expirati on Date Source COVID19 HRSA UNINSURED [id number] 2020 00:00:00 Problems Condition Name Condition Details Condition Category Status Onset Date Resolution Date Last Treatment Date Treating Clinician Comments Source No known active problems No known active problems Disease [facility] Allergies, Adverse Reactions, Alerts Allergy Name Allergy Type Status Severity Reaction(s) Onset Date Inactive Date Treating Clinician Comments Source aspirin DA Active U Unknown 01-31 00:00: 00 [facility] carvedil ol DA Active U Unknown 01-31 00:00: 00 [facility] ASPIRIN DRUG INGREDI Active Other-Cmnt 2020-06 00:00: 00 [facility] CARVEDIL OL DRUG INGREDI Active Other-Cmnt 2020-06 00:00: 00 [facility] Aspirin Propensi ty to adverse reaction s Active Other - See comments 2020-06 00:00: 00 "syncope" [facility] Carvedil ol Propensi ty to adverse reaction s Active Other - See comments 2020-06 00:00: 00 [facility] NO KNOWN ALLERGIE S Drug Class Active [facility] Social History Social Habit Start Date Stop Date Quantity Comments Source Exposure to SARS-CoV-2 (event) 2022-09-06 00:00:00 2022-09-16 14:27:00 Not sure [facility] Sex Assigned At 1990 00:00:00 1990 00:00:00 [facility] Smoking Status Start Date Stop Date Source Tobacco smoking consumption unknown [facility] Medications Ordered Medication Name Filled Medication Name Start Date Stop Date Current Medication? Ordering Clinician Indication Dosage Frequency Signature (SIG) Comments Components Source levalbutero l (XOPENEX) nebulizer solution 1.25 mg 09-16 20:30: 00 09-16 19:44 :00 No 1.25mg 1.25 mg, Inhalation , ONCE, 1 dose, On Wed09/16/22 at 1530, [facility]ine [facility] NaCl 0.9% (NS) bolus infusion 1,000 mL 07-30 18:15: 00 07-31 06:14 :00 No 1000mL at 999 mL/hr, 1,000 mL, IV Infusion, ONCE, 1 dose, On Wed07/30/21 at 1215, [facility] No known medications 07-30 11:19: 13 No [facility] Vital Signs Vital Name Observation Time Observation Value Comments S ource Systolic blood pressure 2022-11-19 15:12:00 138 mm[Hg] [facility] Diastolic blood pressure 2022-11-19 15:12:00 100 mm[Hg] [facility] Heart rate 2022-11-19 15:12:00 83 /min [facility] Body temperature 2022-11-19 15:12:00 36.72 [facility] Respiratory rate 2022-11-19 15:12:00 16 /min [facility] Body weight 2022-11-19 15:12:00 76.204 kg [facility] BMI 2022-11-19 15:12:00 25.54 kg/m2 [facility] Oxygen saturation in Arterial blood by Pulse oximetry 2022-11-19 15:12:00 98 /min [facility] Heart rate 2022-09-16 20:01:00 99 /min [facility] Respiratory rate 2022-09-16 20:01:00 18 /min [facility] Oxygen saturation in Arterial blood by Pulse oximetry 2022-09-16 20:01:00 99 /min [facility] Systolic blood pressure 2022-09-16 19:26:00 138 mm[Hg] [facility] Diastolic blood pressure 2022-09-16 19:26:00 90 mm[Hg] [facility] Body temperature 2022-09-16 19:26:00 37.22 [facility] Body height 2022-09-16 19:26:00 172.7 cm [facility] Body weight 2022-09-16 19:26:00 79.379 kg [facility] BMI 2022-09-16 19:26:00 26.61 kg/m2 [facility] Diastolic blood pressure 2021-07-30 16:42:00 98 mm[Hg] [facility] Heart rate 2021-07-30 16:42:00 87 /min [facility] Body temperature 2021-07-30 16:42:00 37.06 [facility] Respiratory rate 2021-07-30 16:42:00 14 /min [facility] Body height 2021-07-30 16:42:00 172.7 cm [facility] Body weight 2021-07-30 16:42:00 69.899 kg [facility] BMI 2021-07-30 16:42:00 23.43 kg/m2 [facility] Oxygen saturation in Arterial blood by Pulse oximetry 2021-07-30 16:42:00 100 /min [facility] Systolic blood pressure 2021-07-30 16:42:00 144 mm[Hg] [facility] Systolic blood pressure 2021-04-10 16:32:00 146 mm[Hg] [facility] Diastolic blood pressure 2021-04-10 16:32:00 99 mm[Hg] [facility] Heart rate 2021-04-10 16:32:00 89 /min [facility] Body temperature 2021-04-10 16:32:00 36.89 [facility] Respiratory rate 2021-04-10 16:32:00 17 /min [facility] Body weight 2021-04-10 16:32:00 68.04 kg [facility] Oxygen saturation in Arterial blood by Pulse oximetry 2021-04-10 16:32:00 100 /min [facility] Procedures Procedure Date / Time Performed Performing Clinicia n Source ASSIGNMENT OF BENEFITS 2022-11-19 15:27:20 Docto r Unassigned, [place] [facility] CONSENT/REFUSAL FOR DIAGNOSIS AND TREATMENT 2022-11-19 15:04:02 Doctor Unassigned, [place] [facility] NOTICE OF PRIVACY PRACTICES 2022-09-16 19:21:06 Doctor Unassigned, [place] [facility] CONSENT/REFUSAL FOR DIAGNOSIS AND TREATMENT 2022-09-16 19:19:49 Doctor Unassigned, [place] [facility] NOTICE OF PRIVACY PRACTICES 2021-07-30 16:41:12 Doctor Unassigned, [place] [facility] CONSENT/REFUSAL FOR DIAGNOSIS AND TREATMENT 2021-07-30 16:37:50 Doctor Unassigned, [place] [facility] CONSENT/REFUSAL FOR DIAGNOSIS AND TREATMENT 2021-04-10 16:29:21 Doctor Unassigned, [place] [facility] Encounters Start Date/Time End Date/Time Encounter Type Admission Type Attending [facility] Facility Care Department Encounter ID Source 2023-01-31 17:56:41 Emergency HFD HFD [id number] [facility] 2023-01-31 17:15:00 2023-01-31 22:25:00 Emergency Emergency Teddy, Shan [facility] [id number] [facility] 2023-01-31 17:15:00 2023-01-31 22:25:00 Emergency Emergency Teddy, Shan [facility] [id number] [facility] 2022-11-19 10:14:00 2022-11-19 11:35:00 Emergency X Kameron MULLER [facility] ERT [id number] [facility] 2022-11-19 10:14:00 2022-11-19 11:35:00 Emergency Kameron Muller [facility] [id number] 350.1.13.10 4.2.7.2.686 [id number] [facility] 2022-09-16 14:29:00 2022-09-16 15:51:00 Emergency X KERRY FLORES [facility] ERT [id number] [facility] 2022-09-16 14:29:00 2022-09-16 15:51:00 Emergency Kerry Flores [facility] [id number] 350.1.13.10 4.2.7.2.686 [id number] [facility] 2021-07-30 10:45:00 2021-07-30 11:33:00 Emergency X YANI MENDOZA [facility] ERT [id number] [facility] 2021-07-30 10:45:00 2021-07-30 11:33:00 Emergency Tracy Mendozao F [facility] [id number] 350.1.13.10 4.2.7.2.686 [id number] [facility] 2021-07-30 00:00:00 2021-07-30 00:00:00 Orders Only Doctor Unassigned, [place] [facility] 1.2.840.114 350.1.13.10 4.2.7.2.686 [id number] [facility] 2021-04-10 11:33:00 2021-04-10 12:08:00 Emergency X [facility] ERT [id number] [facility] 2021-04-10 11:33:00 2021-04-10 12:08:00 Emergency [facility] 1.2840.114 350.1.13.10 4.2.7.2.686 [id number] [facility] 2020-08-06 09:40:00 2020-08-06 09:40:00 Outpatient R ROSIBEL GUPTA [facility] [id number] [facility] 2020-08-06 09:08:02 2020-08-06 09:28:02 Laboratory Only Lab, [facility] [address] 1..114 350.1.13.10 4.2.7.2.686 [id number] 2020-08-06 09:08:02 2020-08-06 09:28:02 [facility] [address] 1.840.114 350.1.13.10 4.2.7.2.686 [id number] [facility] 2020-07-19 15:40:00 2020-07-19 15:11:52 Outpatient R JERICA HAINES [facility] [id number] [facility] Results Test Description Test Time Test Comments Results Result Co mments Source Complete Blood Count Auto [id number] 19:14:00* Test Item Value Reference Range Interpretation Comme nts White Blood Count (test code = WBCT) 12.0 x10 3/uL 4.4-10.5 H Red Blood Count (test code = RBC) 4.92 x10 6/uL 4.10-5.70 N Hemoglobin (test code = HGBT) 15.1 g/dL 13.4-17.4 N Hematocrit (test code = HCTT) 44.0 % 38.7-52.0 N Mean Corpuscular Volume (selene t code = MCV) 89.40 fL 80.00-100.00 N Mean Corpuscular Hemoglobin (test code = MCH) 30.7 pg 27.0-32.5 N Mean Corpuscular HGB Conc (t est code = MCHC) 34.30 g/dL 32.00-37.50 N RDW Coefficient of Variation (test code = RDWCV) 12.2 % 11.5-14.5 N Platelet Count (test code = PLTT) 220 x10 3/uL 140.0-440.0 N Mean Platelet Volume (test c ode = MPV) 10.4 fL Immature Granulocytes % (Aut o) (test code = IMMGRAN%) 0.3 % 0.0-5.0 N Neutrophils % (Auto) (test c ode = NE%) 86.8 % 36.0-70.0 H Lymphocytes % (Auto) (test c ode = LY%) 7.9 % 12.0-44.0 L Monocytes % (Auto) (test cod e = MO%) 4.3 % 0.0-11.0 N Eosinophils % (Auto) (test c ode = EO%) 0.5 % 0.0-7.0 N Basophils % (Auto) (test cod e = BA%) 0.2 % 0.0-2.0 N Immature Granulocytes # (Aut o) (test code = IMMGRAN#) 0.04 x10 3/uL Neutrophils # (Auto) (test c ode = NE#) 10.4 x10 3/uL 1.6-7.4 H Lymphocytes # (Auto) (test c ode = LY#) 0.95 x10 3/uL 0.50-4.60 N Monocytes # (Auto) (test cod e = MO#) 0.52 x10 3/uL 0.00-1.20 N Eosinophils # (Auto) (test c ode = EO#) 0.06 x10 3/uL 0.00-0.74 N Basophils # (Auto) (test cod e = BA#) 0.03 x10 3/uL 0.00-0.21 N nRBC Abs (test code = NRBCA) 0 nRBC Pct (test code = NRBCP) 0 % Prothrombin Time [id number] 18:25:00* Test Item Value Reference Range Interpretation Comme nts Prothrombin Time (test code = PT) 11.2 Seconds 9.3-12.1 N INR (test code = INR) 1.1 ratio 0.9-1.2 N Reference Interv al is for non-anticoagulated patients.Suggested INR Therapeutic Range for Vitamin K antogonisttherapy:LEV ELS OFTHERAPY INDICATIONS TARGET INR RANGEStandard Dose Venous Thrombosis, 2.0 - 3.0 Atrial Fibrillation, Pulmonary Embolism.High Dose Valvular Heart Disease, 2.5 - 3.5 Mechanical Heart, Intracardiac Thrombosis. Partial Thromboplastin [id number] 18:25:00* Test Item Value Reference Range Interpretation Comme nts Partial Thromboplastin Time (test code = PTT) 28.8 Seconds 23.9-32.8 N Comprehensive Metabolic [id number] 18:25:00* Test Item Value Reference Range Interpretation Comme nts SODIUM (test code = NA) 136.0 mmol/L 136.0-145.0 N Potassium,K (test code = K) 4.1 mmol/L 3.0-5.1 N Chloride (test code = CL) 104 mmol/L 98-107 N Carbon Dioxide (test code = CO2) 25 mmol/L 20-31 N Anion Gap (test code = GAP) 7 mmol/L 5-15 N Blood Urea Nitrogen (test code = BUN) 14 mg/dL 9-23 N Creatinine (test code = CREATT) 0.90 mg/dL 0.55-1.02 N Creatinine Clr Calc Pharmacy (test code = CRCLPHA) 114.00 mL/min Estimated Glomerular Filt Rate (test code = EGFR.XX) 116 See_Comment Reported eGFR is based on the CKD-EPI 2021 equation thatdoes not use a race coefficient. Additional information canbe found at:[email or web address]_aqd_ egfr_summary_flyer 5.pdf ([email or web address].org) [Automated message] The system which generated this result transmitted reference range: >=90 ml/min/1.73m2. The reference range was not used to interpret this result as normal/abnormal. BUN/Creatinine Ratio (test code = BCRATIO) 16 ratio 10-20 N Glucose (test code = GLU) 100 mg/dL 74-106 N Osmolality,Calculated (test code = OSMOC) 282.0 Calcium (test code = CA) 9.8 mg/dL 8.3-10.6 N Bilirubin,Total (test code = BILIT) 0.6 mg/dL 0.2-1.1 N Aspartate Amino Transferase (test code = AST) 30 U/L 0-34 N Alanine Aminotransferase (test code = ALT) 44 U/L 10-49 N Total Protein (test code = TP) 8.4 g/dL 5.7-8.2 H Albumin Level (test code = ALB) 5.2 g/dL 3.2-4.8 H Globulin (test code = GLOB) 3.2 mg/dL 2.3-3.5 N Albumin/Globulin Ratio (test code = AGRATIO) 1.6 ratio 0.8-2.0 N Alkaline Phosphatase (test code = ALP) 141 U/L 46-116 H Creatine [id number] 18:25:00* Test Item Value Reference Range Interpretation Comme nts Creatine Kinase (test code = CK) 122 U/L 46-171 N Troponin I High [id number] 18:25:00* Test Item Value Reference Range Interpretation Comme nts Troponin I High Sensitivity (test code = TROPHS) < 3 ng/L 0-45 N [id number] 18:25:00* Test Item Value Reference Range Interpretation Comme nts Lipase (test code = LIP) 33 U/L 12-53 N EKG ED Electrocardiogram. [facility] [address], [place] [id number] Patient Name: Brenden De Leon Medical Record#: [id number] Address: [address] [place] [address] City/State/Zip: [place] [address]: Shan Espinal DO Insurance: Self Pay /Age/Sex: 1990/32/M Admit/Reg Date: 01/31/[address]: Zunilda Baer NP Location: [facility]/ PCP: Pcp-Md MIKE Acevedo Date of Service: 01/31/23 Order (s): EKG ED Electrocardiogram CPT Code: 59559 Report Number: [id number] Reason for Exam: dizziness Sinus tachycardia Lead(s) unsuitable for analysis: V5 Short ID interval Diffuse ST-T abnormality is nonspecific Summary: Borderline ECG Dictated By: Alberto Escalera MD 01/31/231732 Signed By: Alberto Escalera MD 02/11/23 1559 TD/TT: 01/31/231732 Tech: MW02 cc: [facility]; PCPNO* Zunilda Baer NP; Pcp-Md MIKE Acevedo Notes Date/Time Note Provider Source 2023-01-31 18:33:00 [id number]:33:00 [facility] [address] [place] [id number] Emergency Department Document Signed Patient: Brenden De Leon Medical Record#: [id number] : 1990 Acct:[id number] Age/Sex: 32 / M Admit/Reg Date: 01/31/23 Loc: [facility] Room: Report Number: [id number] Attending Dr: Shan Espinal DO <Zunilda Baer - Last Filed: 02/01/23 00:36> Arrival - Arrival ED Triage Note: Pt presents in ED, arrived by EMS, c/o Dizziness and Weakness after vomiting, while at the [employer]. Pt reports Hx - Crohn's Disease. - EMS Pre-Hospital Finger Stick Blood Glucose Result: 132 History of Present Illness Chief Complaint: Weakness Stated Complaint: General Weakness and Dizziness Nursing note reviewed: Yes Source: patient Exam/History Limitations: no limitations Primary Care Provider: Pcp-Md Curtis History of Present Illness: 32-year-old male history of Crohn's disease presents the ED from the Kg was gained complaining ofabdominal cramping, nausea vomiting and dizziness. Patient states that recently was let go, has nothad insurance and has been unable to receive his Crohn's infusions for the last 3 months. Patient states on the daily feels generalized fatigue, states however today at the game it was extremely hot, patient states he began to have a headache, went to get some water, states became very nauseated and had several episodes of vomiting. Patient reports generalized abdominal cramping/soreness from vomiting. Patient reports some lightheadedness/dizziness. Patient denies anycurrent chest pain, hematochezia, hematemesis, SOB, vision changes, numbness, paresthesia, saddle anesthesia, bowel or bladder incontinence, neck or back pain, fever, cough/congestion, questionable ingestion or syncope. Patient is alert oriented x3, answering questions appropriately, appears in distress at this time, moves all extremities x4 GCS 15 Vital signs stable Allergies/Adverse Reactions: aspirin Allergy (Verified 01/31/23 17:20) Unknown carvedilol Allergy (Verified 01/31/23 17:20) Unknown Review of Systems ROS: As reviewed in the HPI. All other systems reviewed are negative or normal. Family/Social History - Social History Living Situation: Private Home Current or Hx of Recreational Drug use: No 1. How Often Do You Have a Drink Containing Alcohol: a. Never Physical Exam Physical Exam: CONSTITUTIONAL: No apparent distress, well appearing SKIN: Warm, dry, no jaundice, hives or petechiae EYES: Pupils are equally round, extraocular movements intact without nystagmus, clear conjunctiva, non-icteric sclera HENT: Normocephalic, atraumatic, moist mucus membranes NECK: Nontender and supple with no nuchal rigidity, no lymphadenopathy, full range of motion PULMONARY: Clear to auscultation without wheezes, rhonchi, or rales, normal excursion, no accessory muscle use and no stridor CARDIOVASCULAR: Regular rate, rhythm, normal S1 and S2. No appreciated murmurs. Strong radial pulseswith intact distal perfusion GASTROINTESTINAL: Soft, non-tender, non-distended, no palpable masses, no rebound or guarding GENITOURINARY: No costovertebral angle tenderness to palpationy MUSCULOSKELETAL: Extremities are nontender to palpation and have no gross deformity, no edema, redness, or swelling NEUROLOGIC: A/o x 3, GCS 15, normal mentation and speech. Moves all extremities x 4 without motor orsensory deficit PSYCHIATRIC: Normal mood and affect, thought process is clear and linear Results/Orders - Results and Orders Result diagrams: 01/31/23 19:14 01/31/23 18:25 MDM/COURSE - MDM Medical decision making narrative: LABS Abnormal Lab Results 01/31/23 01/31/23 01/31/23 18:25 18:25 18:25 WBC Cancelled RBC Cancelled Hgb Cancelled Hct Cancelled MCV Cancelled MCH Cancelled MCHC Cancelled RDW Coeff of Casey Cancelled Plt Count Cancelled MPV Cancelled Immature Gran % (Auto) Cancelled Neut % (Auto) Cancelled Lymph % (Auto) Cancelled [place] % (Auto) Cancelled Eos % (Auto) Cancelled Baso % (Auto) Cancelled Neut # (Auto) Cancelled Lymph # (Auto) Cancelled [place] # (Auto) Cancelled Eos # (Auto) Cancelled Baso # (Auto) Cancelled Immature Gran # (Auto) Cancelled Absolute Nucleated RBC Cancelled Nucleated RBC % (auto) Cancelled PT 11.2 INR 1.1 APTT 28.8 Sodium 136.0 Potassium 4.1 Chloride 104 Carbon Dioxide 25 Anion Gap 7 BUN 14 Creatinine 0.90 Estimated Creat Clear 114.00 Estimated GFR 116 BUN/Creatinine Ratio 16 Glucose 100 Calculated Osmolality 282.0 Calcium 9.8 Total Bilirubin 0.6 AST 30 ALT 44 Alkaline Phosphatase 141 H Total Creatine Kinase 122 Troponin I High Sens Total Protein 8.4 H Albumin 5.2 H Globulin 3.2 Albumin/Globulin Ratio 1.6 Lipase 01/31/23 01/31/23 01/31/23 18:25 18:25 19:14 WBC 12.0 H RBC 4.92 Hgb 15.1 Hct 44.0 MCV 89.40 MCH 30.7 MCHC 34.30 RDW Coeff of Casey 12.2 Plt Count 220 MPV 10.4 Immature Gran % (Auto) 0.3 Neut % (Auto) 86.8 H Lymph % (Auto) 7.9 L [place] % (Auto) 4.3 Eos % (Auto) 0.5 Baso % (Auto) 0.2 Neut # (Auto) 10.4 H Lymph # (Auto) 0.95 [place] # (Auto) 0.52 Eos # (Auto) 0.06 Baso # (Auto) 0.03 Immature Gran # (Auto) 0.04 Absolute Nucleated RBC 0 Nucleated RBC % (auto) 0 PT INR APTT Sodium Potassium Chloride Carbon Dioxide Anion Gap BUN Creatinine Estimated Creat Clear Estimated GFR BUN/Creatinine Ratio Glucose Calculated Osmolality Calcium Total Bilirubin AST ALT Alkaline Phosphatase Total Creatine Kinase Troponin I High Sens < 3 Total Protein Albumin Globulin Albumin/Globulin Ratio Lipase 33 01/31/23 21:00 WBC RBC Hgb Hct MCV MCH MCHC RDW Coeff of Casey Plt Count MPV Immature Gran % (Auto) Neut % (Auto) Lymph % (Auto) [place] % (Auto) Eos % (Auto) Baso % (Auto) Neut # (Auto) Lymph # (Auto) [place] # (Auto) Eos # (Auto) Baso # (Auto) Immature Gran # (Auto) Absolute Nucleated RBC Nucleated RBC % (auto) PT INR APTT Sodium Potassium Chloride Carbon Dioxide Anion Gap BUN Creatinine Estimated Creat Clear Estimated GFR BUN/Creatinine Ratio Glucose Calculated Osmolality Calcium Total Bilirubin AST ALT Alkaline Phosphatase Total Creatine Kinase Troponin I High Sens < 3 Total Protein Albumin Globulin Albumin/Globulin Ratio Lipase MDM: EKG sinus tachycardia, rate 108, ID 122, QRS 87, QTC 444, no ST elevation noted, nonspecific T-wave changes, EKG seen interpreted by Dr. Espinal CBC shows mild leukocytosis at 12.0, otherwise grossly unremarkable, CMP unremarkable, CK 141, lipase 33, troponin negative x2 Patient given 2 L NS bolus, reassessment patient reports resolution of headache. Advised patient would like to CT image head abdomen pelvis. Patient refusing CT head. Patient is in agreement with CT abdomen pelvis, however prior to imaging studies being performed, patient states he needs to get home to his children, advised patient the risks of leaving against medical advise, patient verbalized understanding of this. Patient states feels improved with the IVfluids, advised patient of the risks of readmission, worsening condition even , patient verbalized understanding of this, signed AMA paperwork and left the ED, patient states will follow-up with his primary care provider. Patient left the ED in no distress with even steady gait. Differential Diagnosis associated with patient's presentation includes, but is not limited to: Dehydration, metabolic imbalance, Crohn's flare, anemia, gastroenteritis, gastritis, GERD, heat exposure Escalation of care including admission/observation considered: Yes Discussion of management with other providers include: None Independent interpretations includes: Radiology images were reviewed from the radiologists interpretation. Additional patient history obtained from: Patient Review of external non-ED record: None available Diagnostic Tests considered but not performed: CT abdomen pelvis, CT head Prescription medications considered but not given: None Chronic conditions affecting care: Crohn's Social determinants of health significantly affecting care include: None Treatment disposition: Patient left AMA Medications Reviewed. Following prescriptions provided: None Patient Full Code. Shared Decisions making with patient: Patient left AMA Otherwise In spite of multiple attempts by myself and staff to convince the patient to stay for evaluation and treatment, we have unfortunately been unsuccessful. However, the patient has the capacity to give, receive, and withhold information. The patient verbalizes understanding of their condition and symptoms and that this represents a significant threat. The patient has verbalized to me that they understand the plan of diagnosis and treatment, and unfortunately will not agree and understand that it may cause worsening of their condition or . The patient understands that they can come back at any time for further care without prejudice and we will be happy to provide treatment again. <Shan Espinal - Last Filed: 02/04/23 06:15> History of Present Illness Primary Care Provider: Pcp-Md Curtis Physical Exam Triage Vital Signs: Temperature 36.9 C 01/31/23 17:21 Temperature Source Oral 01/31/23 17:21 Pulse Rate 112 H 01/31/23 17:21 Respiratory Rate 16 01/31/23 17:21 Blood Pressure 135/80 01/31/23 17:21 Blood Pressure Source Automatic Cuff 01/31/23 17:21 Blood Pressure Mean 98 01/31/23 17:21 Blood Pressure Position Supine 01/31/23 17:21 O2 Sat by Pulse Oximetry 98 01/31/23 17:21 Oxygen Delivery Method 01/31/23 17:21 Sepsis Action Taken by Nursing 01/31/23 17:21 Pain Intensity 0 01/31/23 17:21 Results/Orders - Results and Orders Result diagrams: 01/31/23 19:14 01/31/23 18:25 Lab Testing Results 01/31/23 18:25: WBC Cancelled, RBC Cancelled, Hgb Cancelled, Hct Cancelled, MCV Cancelled, MCH Cancelled, MCHC Cancelled, RDW Coeff of Casey Cancelled, Plt Count Cancelled, MPV Cancelled, Immature Gran % (Auto) Cancelled, Neut % (Auto) Cancelled, Lymph % (Auto) Cancelled, [place] % (Auto) Cancelled,Eos % (Auto) Cancelled, Baso % (Auto) Cancelled, Neut # (Auto) Cancelled, Lymph # (Auto) Cancelled, [place] # (Auto) Cancelled, Eos # (Auto) Cancelled, Baso # (Auto) Cancelled, Immature Gran # (Auto) Cancelled, Absolute Nucleated RBC Cancelled, Nucleated RBC % (auto) Cancelled 01/31/23 18:25: PT 11.2, INR 1.1, APTT 28.8 01/31/23 18:25: Sodium 136.0, Potassium 4.1, Chloride 104, Carbon Dioxide 25, Anion Gap 7, BUN 14, Creatinine 0.90, Estimated Creat Clear 114.00, Estimated GFR 116, BUN/Creatinine Ratio 16, Glucose 100, Calculated Osmolality 282.0, Calcium 9.8, Total Bilirubin 0.6, AST 30, ALT 44, Alkaline Phosphatase 141 H, Total Creatine Kinase 122, Total Protein 8.4 H, Albumin 5.2 H, Globulin 3.2, Albumin/Globulin Ratio 1.6 01/31/23 18:25: Troponin I High Sens < 3 01/31/23 18:25: Lipase 33 01/31/23 19:14: WBC 12.0 H, RBC 4.92, Hgb 15.1, Hct 44.0, MCV 89.40, MCH 30.7, MCHC 34.30, RDW Coeffof Casey 12.2, Plt Count 220, MPV 10.4, Immature Gran % (Auto) 0.3, Neut % (Auto) 86.8 H, Lymph % (Auto) 7.9 L, [place] % (Auto) 4.3, Eos % (Auto) 0.5, Baso % (Auto) 0.2, Neut # (Auto) 10.4 H, Lymph # (Auto) 0.95, [place] # (Auto) 0.52, Eos # (Auto) 0.06, Baso # (Auto) 0.03, Immature Gran # (Auto) 0.04,Absolute Nucleated RBC 0, Nucleated RBC % (auto) 0 01/31/23 21:00: Troponin I High Sens < 3 Medications Ordered: Discontinued Medications Sodium Chloride () 1,000 mls @ 999 mls/hr IV .Q1H1M MARCIE Stop: 01/31/23 20:00 Last Admin: 01/31/23 19:22 Dose: 999 mls/hr Documented By: Admin: 01/31/23 18:17 Dose: 999 mls/hr Documented By: EN EKG Orders: EKG Orders 01/31/23 17:35 EKG ED Electrocardiogram Stat MDM/COURSE Vital Signs Temperature 36.9 C 01/31/23 17:21 Pulse Rate 112 H 01/31/23 17:21 Respiratory Rate 16 01/31/23 17:21 Blood Pressure 135/80 01/31/23 17:21 O2 Sat by Pulse Oximetry 98 01/31/23 17:21 Temperature 36.9 C 01/31/23 17:21 Pulse Rate 98 H 01/31/23 18:19 Respiratory Rate 18 01/31/23 22:25 Blood Pressure 134/88 01/31/23 22:25 O2 Sat by Pulse Oximetry 100 01/31/23 18:19 - MDM Medical decision making narrative: 02/04/23 06:13 Differential diagnosis: Heat exhaustion, heat stroke, volume depletion, electrolyte abnormality, hypoglycemia, cardiac arrhythmia 32-year-old male, seen and evaluated by me at ED bedside. I have discussed, reviewed, and agree with, the mid-level provider's documentation, history and physical, assessment, and treatment plan. MDM as follows: Patient presenting to emergency department via EMS from the [employer], complaining of nausea vomiting and dizziness. Exposed to high temperatures and heat outdoors. History obtained from EMS upon patient arrival to inquire about any interventions. Per EMS, no interventions given on scene or during transport. Labs reviewed, including CBC, CMP, mild leukocytosis likely reactive. Patient hydrated with IV fluids. However, patient refused to stay for observation and demanding leaving prior to completion of workup. AAO x3, GCS 15, risks versus benefits discussed, patient has decision-making capacity. Verbalized understanding and still wants to leave, strict return precautions and outpatient follow-up provided. Patient's tachycardia likelyresult of volume depletion, improved with fluids. 02/04/23 06:15 Critical Care Time Critical Care Time: Yes Total Critical Care Time: 45 (Minutes) Attestation: CRITICAL CARE NOTE 45 minutes of total critical care time spent, patient at risk of critical illness from circulatoryfailure secondary to dehydration, my immediate management included IV fluid normal saline bolus infusion. critical care time spent independently of any procedures performed. Critical care time spent on examining the patient, obtaining history from someone other than the patient, reviewing medical records, ordering treatments, evaluating response to treatment, documentation, discussing management plan with other providers. Critical Care Exclusion Statement: Critical care time excludes time for other separate services/procedures. Attending - GIOVANI: Attending Note GIOVANI: ED Attending Attestation: Yes Attending Attestation Statement: I personally saw the patient and performed a substantive portion ofthe visit including: all aspects of: medical decision making Discharge Plan - Discharge Clinical Impression: Nausea vomiting, Left against medical advice Disposition: Left Against Medical Advice Condition: Fair Referrals: Pcp-Curtis,MD Mike [Primary Care Provider] - Print Language: Somali - Discharge Data Time Seen by Provider: 01/31/23 17:25 - Depart Patient Account Discharge Date/Time: 01/31/23 22:25 Dictated By: Zunilda Baer NP Signed By: Zunilda Baer NP 02/01/23 0040 Shan Espinal DO 02/04/23 0615 DD/ 32 TD/TT: 01/31/231832 Heel Seat Laster: [id number] cc: CHARLIE* Pcp-Md MD GABRIELE Acevedo Physician [id number], [id number].EDAVAvailable for patient [id number] [facility]
--- NOTE | 2023-07-20 10:16 | EDPHYS ---
Physician Documentation [facility] Name: Brenden Washington Age: 33 yrs Sex: Male : 1990 Arrival Date: 07/20/2023 Time: 09:49 Bed 20 Private MD: ED Physician Sam Mckeon HPI: 07/20 12:21 This 33 yrs old Male presents to ER via Ambulatory with complaints of Crohns kdr flare up. 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 Patient states that he has a history of Crohn's and always has chronic mild manageable abdominal pain and that nothing was new or different today. Patient states that he otherwise was in his usual state of health and that he had informed his safety patrol officer that there is nothing new about his current condition. EMS on the scene evaluated the patient did not find anything abnormal. Patient was subsequently told that he needed a doctor's clearance before returning to work. Patient was unable to see his primary care who had retired recently. Patient therefore presented to the ED for evaluation and clearance. Patient is sitting comfortably in bed without any indication of any ongoing acute illness or exacerbation of chronic illness.. Onset: The symptoms/episode began/occurred There is no new complaint and therefore no onset. Historical: - Allergies: 09:57 Aspirin (Anaphylaxis); ll1 09:57 Coreg; ll1 - PMHx: 09:57 Asthma; Hypertension; ll1 - Immunization history:: Adult Immunizations up to date. - Social history:: Smoking status: Patient denies any tobacco usage or history of. ROS: 12:21 Constitutional: Negative for fever, chills, and weight loss, Eyes: Negative for injury, kdr pain, redness, and discharge, Cardiovascular: Negative for chest pain, palpitations, and edema, Respiratory: Negative for shortness of breath, cough, wheezing, and pleuritic chest pain, Abdomen/GI: Negative for abdominal pain, nausea, vomiting, diarrhea, and constipation, Back: Negative for injury and pain, Exam: 12:21 Constitutional: This is a well developed, well nourished patient who is awake, alert, kdr and in no acute distress. Abdomen/GI: Soft, non-tender, with normal bowel sounds. No distension or tympany. No guarding or rebound. No evidence of tenderness throughout. Vital Signs: 09:57 BP 144 / 110; Pulse 88; Resp 18; Temp 97; Pulse Ox 98% ; Weight 77.11 kg; Height 5 ft. ll1 8 in. ; Pain 0/10; 10:23 BP 145 / 109; Pulse 83; Resp 16; Pulse Ox 96% ; Pain 0/10; ll1 09:57 Body Mass Index 25.85 (77.11 kg, 172.72 cm) ll1 09:57 Pain Scale: Adult ll1 10:23 Pain Scale: Adult ll1 MDM: 10:16 Patient medically screened. kdr 12:21 Data reviewed: vital signs, nurses notes. kdr 12:21 ED course: The patient while in the ED did not have any evidence of an acute kdr exacerbation of his longstanding Crohn's nor did he have any indication of any new acute illness or injury. Patient was discharged in stable condition and a note was provided for him to return to work without delay. Administered Medications: No medications were administered Disposition Summary: 07/20/23 10:16 Discharge Ordered Problem: chronic kdr Symptoms: are resolved kdr Condition: Stable kdr Diagnosis - Abdominal pain, Generalized - chronic/Crohn's kdr Followup: kdr - With: Private Physician - When: As needed - Reason: If symptoms return, Further diagnostic work-up, Recheck today's complaints, Continuance of care, Re-evaluation by your physician Discharge Instructions: - Abdominal Pain, Adult kdr - Crohn's Disease kdr - Discharge Summary Sheet ll1 Forms: - Medication Reconciliation Form kdr - Thank You Letter kdr - Patient Portal Instructions kdr - Leadership Thank You Letter kdr - Work release form ll1 Signatures: Sam Mckeon MD MD kdr Tim Gaxiola RN RN 1
--- NOTE | 2023-07-20 10:16 | ER ---
Nurse's Notes [facility] Name: Brenden Washington Age: 33 yrs Sex: Male : 1990 Arrival Date: 07/20/2023 Time: 09:49 Bed 20 Private MD: Diagnosis: Abdominal pain, Generalized-chronic/Crohn's Presentation: 07/20 09:57 Chief complaint: Patient states: Sent home from work because the safety lady said he ll1 "looked off" this morning. Needs work release to return. No N/V/D. No cough/fever. States he feels fine. Coronavirus screen: Client denies travel out of the [place] in the last 14 days. At this time, the client does not indicate any symptoms associated with coronavirus-19. Ebola Screen: Patient denies travel to an Ebola-affected area in the 21 days before illness onset. Initial Sepsis Screen: Does the patient meet any 2 criteria? No. Patient's initial sepsis screen is negative. Does the patient have a suspected source of infection? No. Patient's initial sepsis screen is negative. Risk Assessment: Do you want to hurt yourself or someone else? Patient reports no desire to harm self or others. Onset of symptoms was July 20, 2023. 09:57 Method Of Arrival: Ambulatory ll1 09:57 Acuity: ADI 4 ll1 Triage Assessment: 09:59 General: Appears in no apparent distress. Behavior is calm, cooperative, appropriate ll1 for age. General: Reports needs work release. Pain: Denies pain. Historical: - Allergies: 09:57 Aspirin (Anaphylaxis); ll1 09:57 Coreg; ll1 - PMHx: 09:57 Asthma; Hypertension; ll1 - Immunization history:: Adult Immunizations up to date. - Social history:: Smoking status: Patient denies any tobacco usage or history of. Screenin:24 [facility] ED Fall Risk Assessment (Adult) Score/Fall Risk Level 0 - 2 = Low Risk ll1 Oriented to surroundings, Maintained a safe environment, Educated pt \\T\\ family on fall prevention, incl call for assistance when getting out of bed, Hourly rounding (assess needs \\T\\ fall precautionary measures) done. Abuse screen: Denies threats or abuse. Nutritional screening: No deficits noted. Tuberculosis screening: No symptoms or risk factors identified. Assessment: 10:23 Reassessment: No changes from previously documented assessment. Patient and/or family ll1 updated on plan of care and expected duration. Pain level reassessed. Patient is alert, oriented x 3, equal unlabored respirations, skin warm/dry/pink. Vital Signs: 09:57 BP 144 / 110; Pulse 88; Resp 18; Temp 97; Pulse Ox 98% ; Weight 77.11 kg; Height 5 ft. ll1 8 in. ; Pain 0/10; 10:23 BP 145 / 109; Pulse 83; Resp 16; Pulse Ox 96% ; Pain 0/10; ll1 09:57 Body Mass Index 25.85 (77.11 kg, 172.72 cm) ll1 09:57 Pain Scale: Adult ll1 10:23 Pain Scale: Adult ll1 ED Course: 09:50 Patient arrived in ED. rg4 09:51 Sam Mckeon MD is Attending Physician. kdr 09:57 Arm band placed on Patient placed in an exam room, on a stretcher. ll1 09:59 Triage completed. ll1 10:24 Patient has correct armband on for positive identification. Bed in low position. Call ll1 light in reach. Provided Education on: n/a. 10:24 No provider procedures requiring assistance completed. Patient did not have IV access ll1 during this emergency room visit. Administered Medications: No medications were administered Medication: 10:24 VIS not applicable for this client. ll1 Outcome: 10:16 Discharge ordered by . kdr 10:24 Discharged to home ambulatory, ll1 10:24 Condition: stable 10:24 Discharge instructions given to patient, Instructed on discharge instructions, follow up and referral plans. Demonstrated understanding of instructions, follow-up care, 10:24 Patient left the ED. ll1 Signatures: Sam Mckeon MD MD kdr Garcia, Rubi rg4 Tim Gaxiola RN RN ll1
[2023-07-21 12:04] VITALS: BP 144/110; TEMP 97; O2SAT 98
== END ==
LOC: ER 09:49
DX: R10.84 Generalized abdominal pain (principal); K50.90 Crohn's disease, unspecified, without complications

== ENCOUNTER 2023-11-05 15:47 | Emergency (ER) | payer SELFPAY ==
--- OUTSIDE RECORDS SUMMARY | 2023-11-05 15:50 | XMS REPORT | Continuity of Care Document ---
Author Name Unknown Address [address] [facility]. [address] [place] [address] [facility] Address [address] [facility]. [address] [place] [address] Care Team Providers Care Radio Television Technical Director Name Role Phone Pcp-None Primary Care Physician Unavailab Shan De Luna Attending Clinician Unavailable Kameron MULLER Attending Clinician Unavailable Kameron Lino Attending Clinician [phone] KERRY FLORES Attending Clinician Unavailab Kerry Rdz DO Attending Clinician [phone] YANI MENDOZA Attending Clinician Unavaila Yani Soto Attending Clinician [phone] Doctor Unassigned, Kake Attending Clinician U ROSIBEL Hyde Attending Clinician Unavailable Lab, Adc Fam Pob I Attending Clinician Unavailab Rosibel Burris Attending Clinician [phone] JERICA HAINES Attending Clinician Unavailab moreno Payers Payer Name Policy Type Policy Number Effective Date Expirati on Date Source [id number] 2020 00:00:00 Problems Condition Name Condition Details Condition Category Status Onset Date Resolution Date Last Treatment Date Treating Clinician Comments Source No known active problems No known active problems Disease [facility] Allergies, Adverse Reactions, Alerts Allergy Name Allergy Type Status Severity Reaction(s) Onset Date Inactive Date Treating Clinician Comments Source aspirin DA Active U Unknown 01-31 00:00: 00 [facility] carvedil ol DA Active U Unknown 8 00:00: 00 [facility] ASPIRIN DRUG INGREDI Active Other-Cmnt 2020-06 00:00: 00 [facility] CARVEDIL OL DRUG INGREDI Active Other-Cmnt 2020-06 00:00: 00 [facility] Aspirin Propensi ty to adverse reaction s Active Other - See comments 2020-06 00:00: 00 "syncope" [facility] Carvedil ol Propensi ty to adverse reaction s Active Other - See comments 2020-06 00:00: 00 [facility] NO KNOWN ALLERGIE S Drug Class Active [facility] Social History Social Habit Start Date Stop Date Quantity Comments Source Exposure to SARS-CoV-2 (event) 2022-09-06 00:00:00 2022-09-16 14:27:[address] [facility] Sex Assigned At 1990 00:00:00 1990 00:00:00 [facility] Smoking Status Start Date Stop Date Source Tobacco smoking consumption unknown [facility] Medications Ordered Medication Name Filled Medication Name Start Date Stop Date Current Medication? Ordering Clinician Indication Dosage Frequency Signature (SIG) Comments Components Source levalbutero l (XOPENEX) nebulizer solution 1.25 mg 09-16 20:30: 00 09-16 19:44 :00 No 1.25mg 1.25 mg, Inhalation , ONCE, 1 dose, On Wed09/16/22 at 1530, Routine [facility] NaCl 0.9% (NS) bolus infusion 1,000 mL 07-30 18:15: 00 07-31 06:14 :00 No 1000mL at 999 mL/hr, 1,000 mL, IV Infusion, ONCE, 1 dose, On Wed07/30/21 at 1215, TERENCE [facility] No known medications 2022-0 2-16 11:19: 13 No [facility] Vital Signs Vital Name Observation Time Observation Value Comments S christ Systolic blood pressure 2022-11-19 15:12:00 138 mm[Hg] [facility] Diastolic blood pressure 2022-11-19 15:12:00 100 mm[Hg] [facility] Heart rate 2022-11-19 15:12:00 83 /min [facility] Body temperature 2022-11-19 15:12:[address] [facility] Respiratory rate 2022-11-19 15:12:00 16 /min [facility] Body weight 2022-11-19 15:12:00 76.204 kg [facility] BMI 2022-11-19 15:12:00 25.54 kg/m2 [facility] Oxygen saturation in Arterial blood by Pulse oximetry 2022-11-19 15:12:00 98 /min [facility] Heart rate 2022-09-16 20:01:00 99 /min [facility] Respiratory rate 2022-09-16 20:01:00 18 /min [facility] Oxygen saturation in Arterial blood by Pulse oximetry 2022-09-16 20:01:00 99 /min [facility] Systolic blood pressure 2022-09-16 19:26:00 138 mm[Hg] [facility] Diastolic blood pressure 2022-09-16 19:26:00 90 mm[Hg] [facility] Body temperature 2022-09-16 19:26:[address] [facility] Body height 2022-09-16 19:26:00 172.7 cm [facility] Body weight 2022-09-16 19:26:00 79.379 kg [facility] BMI 2022-09-16 19:26:00 26.61 kg/m2 [facility] Systolic blood pressure 2021-07-30 16:42:00 144 mm[Hg] [facility] Diastolic blood pressure 2021-07-30 16:42:00 98 mm[Hg] [facility] Heart rate 2021-07-30 16:42:00 87 /min [facility] Body temperature 2021-07-30 16:42:[address] [facility] Respiratory rate 2021-07-30 16:42:00 14 /min [facility] Body height 2021-07-30 16:42:00 172.7 cm [facility] Body weight 2021-07-30 16:42:00 69.899 kg [facility] acute [facility] BMI 2021-07-30 16:42:00 23.43 kg/m2 [facility] hospital Oxygen saturation in Arterial blood by Pulse oximetry 2021-07-30 16:42:00 100 /min [facility] Systolic blood pressure 2021-04-10 16:32:00 146 mm[Hg] [facility] Diastolic blood pressure 2021-04-10 16:32:00 99 mm[Hg] [facility] Heart rate 2021-04-10 16:32:00 89 /min [facility] Body temperature 2021-04-10 16:32:[address] [facility] Respiratory rate 2021-04-10 16:32:00 17 /min [facility] Body weight 2021-04-10 16:32:00 68.04 kg [facility] acute hospital Oxygen saturation in Arterial blood by Pulse oximetry 2021-04-10 16:32:00 100 /min [facility] Procedures Procedure Date / Time Performed Performing Clinicia n Source ASSIGNMENT OF BENEFITS 2022-11-19 15:27:20 Docto r Unassigned, Kake [facility] CONSENT/REFUSAL FOR DIAGNOSIS AND TREATMENT 2022-11-19 15:04:02 Doctor Unassigned, Kake [facility] NOTICE OF PRIVACY PRACTICES 2022-09-16 19:21:06 Doctor Unassigned, Kake [facility] CONSENT/REFUSAL FOR DIAGNOSIS AND TREATMENT 2022-09-16 19:19:49 Doctor Unassigned, Kake [facility] NOTICE OF PRIVACY PRACTICES 2021-07-30 16:41:12 Doctor Unassigned, Kake [facility] CONSENT/REFUSAL FOR DIAGNOSIS AND TREATMENT 2021-07-30 16:37:50 Doctor Unassigned, Kake [facility] CONSENT/REFUSAL FOR DIAGNOSIS AND TREATMENT 2021-04-10 16:29:21 Doctor Unassigned, Kake [facility] Encounters Start Date/Time End Date/Time Encounter Type Admission Type Attending [facility] Care Department Encounter ID Source 2023-01-31 17:56:41 Emergency HFD HFD [id number] [facility] 2023-01-31 17:15:00 2023-01-31 22:25:00 Emergency [facility] [id number] [facility] 2023-01-31 17:15:00 2023-01-31 22:25:00 Emergency [facility] [id number] [facility] 2022-11-19 10:14:00 2022-11-19 11:35:00 Emergency X Kameron MULLER [facility] ERT [id number] [facility] 2022-11-19 10:14:00 2022-11-19 11:35:00 Emergency Kameron Muller [facility] [id number] [id number] [facility] 2022-09-16 14:29:00 2022-09-16 15:51:00 Emergency X KERRY FLORES [facility] ERT [id number] [facility] 2022-09-16 14:29:00 2022-09-16 15:51:00 Emergency Kerry Flores [facility] [id number] 4.2.7.2.686 [id number] [facility] 2021-07-30 10:45:00 2021-07-30 11:33:00 Emergency X YANI MENDOZA [facility] ERT [id number] [facility] 2021-07-30 10:45:00 2021-07-30 11:33:00 Emergency Yani Mendoza [facility] [id number] [id number] 4.2.7.2.686 [id number] [facility] 2021-07-30 00:00:00 2021-07-30 00:00:00 Orders Only Doctor Unassigned, Kake [facility] [id number] 350.1.13.10 4.2.7.2.686 [id number] [facility] 2021-04-10 11:33:00 2021-04-10 12:08:00 Emergency X [facility] ERT [id number] [facility] 2021-04-10 11:33:00 2021-04-10 12:08:00 Emergency [facility] [id number] 350.1.13.10 4.2.7.2.686 [id number] [facility] 2020-08-06 09:40:00 2020-08-06 09:40:00 Outpatient R ROSIBEL [facility] [id number] [facility] 2020-08-06 09:08:02 2020-08-06 09:28:02 Laboratory Only Lab, [facility] [address] 1.840.114 350.1.13.10 4.2.7.2.686 [id number] 2020-08-06 09:08:02 2020-08-06 09:28:02 Laboratory Only Lab, [facility] 1.840.114 350.1.13.10 4.2.7.2.686 [id number] [facility] 2020-07-19 15:40:00 2020-07-19 15:11:52 Outpatient R JERICA HAINES [facility] [id number] [facility] Results Test Description Test Time Test Comments Results Result Co mments Source Complete Blood Count Auto [id number] 19:14:00* Test Item Value Reference Range Interpretation [...] code = NRBCP) 0 % Prothrombin Time [id number] 18:25:00* Test Item Value Reference Range Interpretation [...] 3.5 Mechanical Heart, Intracardiac Thrombosis. Partial Thromboplastin [id number] 18:25:00* Test Item Value Reference Range Interpretation Comme nts Partial Thromboplastin Time (test code = PTT) 28.8 Seconds 23.9-32.8 N Comprehensive Metabolic [id number] 18:25:00* Test Item Value Reference Range Interpretation [...] a race coefficient. Additional information canbe found at:[email or web address] [email or web address] 5.pdf ([email or web address]) [Automated message] The system [...] = ALP) 141 U/L 46-116 H Creatine [id number] 18:25:00* Test Item Value Reference Range Interpretation Comme nts Creatine Kinase (test code = CK) 122 U/L 46-171 N Troponin I High [id number] 18:25:00* Test Item Value Reference Range Interpretation Comme nts Troponin I High Sensitivity (test code = TROPHS) < 3 ng/L 0-45 N [id number] 18:25:00* Test Item Value Reference Range Interpretation Comme nts Lipase (test code = LIP) 33 U/L 12-53 N [facility] [address] [place] [address] Patient Name: Brenden De Leon Medical Record#: [id number] Address: [address] [place] [address] City/State/Zip: [place] [address]: Shan Espinal DO Insurance: Self Pay /Age/Sex: 1990/32/M Admit/Reg Date: 01/31/[address]: Zunilda Baer NP Location: [facility]/ PCP: Pcp-Md MIKE Acevedo Date of Service: 01/31/23 Order (s): EKG ED Electrocardiogram CPT Code: 36184 Report Number: [id number] Reason for Exam: dizziness Sinus tachycardia Lead(s) unsuitable for analysis: V5 Short DC interval Diffuse ST-T abnormality is nonspecific Summary: Borderline ECG Dictated By: Ablerto Escalera MD 01/31/231732 Signed By: Alberto Escalera MD 02/11/23 1559 TD/TT: 01/31/231732 Tech: MW02 cc: [id number]; PCPNO* Zunilda Baer NP; Pcp-Md MIKE Acevedo Notes Date/Time Note Provider Source 2023-01-31 18:33:00 [id number]:33:00 [facility] [address] [place] [address] Emergency Department Document Signed Patient: Brenden De Leon Medical Record#: [id number] : 1990 Acct:[id number] Age/Sex: 32 / M Admit/Reg Date: 01/31/23 Loc: [facility] Room: Report Number: [id number]: Shan Espinal DO <Zunilda Baer - Last Filed: 02/01/23 00:36> Arrival - Arrival ED Triage Note: Pt presents in ED, arrived by EMS, c/o Dizziness and Weakness after vomiting, while [place] the [employer]. Pt reports Hx - Crohn's Disease. [...] % (Auto) Cancelled Lymph % (Auto) Cancelled [place] % (Auto) Cancelled Eos % (Auto) Cancelled Baso % (Auto) Cancelled Neut # (Auto) Cancelled Lymph # (Auto) Cancelled [place] # (Auto) Cancelled Eos # (Auto) Cancelled [...] 86.8 H Lymph % (Auto) 7.9 L [place] % (Auto) 4.3 Eos % (Auto) 0.5 Baso % (Auto) 0.2 Neut # (Auto) 10.4 H Lymph # (Auto) 0.95 [place] # (Auto) 0.52 Eos # (Auto) 0.06 [...] Protein Albumin Globulin Albumin/Globulin Ratio Lipase 33 // 21:00 WBC RBC Hgb Hct MCV MCH MCHC RDW Coeff of Casey Plt Count MPV Immature Gran % (Auto) Neut % (Auto) Lymph % (Auto) [place] % (Auto) Eos % (Auto) Baso % (Auto) Neut # (Auto) Lymph # (Auto) [place] # (Auto) Eos # (Auto) Baso # [...] Lipase MDM: EKG sinus tachycardia, rate 108, DC 122, QRS 87, QTC 444, no ST [...] % (Auto) Cancelled, Lymph % (Auto) Cancelled, [place] % (Auto) Cancelled,Eos % (Auto) Cancelled, Baso % (Auto) Cancelled, Neut # (Auto) Cancelled, Lymph # (Auto) Cancelled, [place] # (Auto) Cancelled, Eos # (Auto) Cancelled, [...] 86.8 H, Lymph % (Auto) 7.9 L, [place] % (Auto) 4.3, Eos % (Auto) 0.5, Baso % (Auto) 0.2, Neut # (Auto) 10.4 H, Lymph # (Auto) 0.95, [place] # (Auto) 0.52, Eos # (Auto) 0.06, [...] to emergency department via EMS from [place] [employer] [place], complaining of nausea vomiting and dizziness. 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
[2023-11-05 16:22] LABS: PT Prothrombin Time 12.8 SECONDS (9.5-12.5); Protime INR 1.17
[2023-11-05 16:26] LABS: Absolute Eosinophils 0.4 K/uL (0-0.5); Absolute Lymphocytes (CBC) 1.5 K/uL (0.7-4.9); Absolute Monocytes 0.8 K/uL (0.1-1.3); Absolute Neutrophil 2.6 K/uL (1.8-8.0); Basophils % 0.7 % (0-1.3); Eosinophils % 7.7 % (0-4.4); Hematocrit 46.3 % (39.6-49.0); Hemoglobin 15.2 g/dL (13.6-17.9); Lymphocytes % 27.3 % (15.3-44.8); MCH 29.9 pg (27.0-35.0); MCHC 32.9 g/dL (32.0-36.0); MCV 90.8 fL (80-100); MPV 8.8 fL (7.6-11.3); Monocytes % 15.3 % (3.3-12.3); Platelets 236 thou/uL (152-406); Red Cell Distribution Width 13.3 % (12.1-15.2)
[2023-11-05 16:45] LABS: ALT/SGPT 33 U/L (16-61); AST/SGOT 12 U/L (15-37); Albumin 3.9 g/dL (3.4-5.0); Alkaline Phosphatase 110 U/L (45-117); Anion Gap 4.4 mEq/L (5.0-15.0); BUN Blood Urea Nitrogen 20 mg/dL (7-18); Bicarbonate 31 mEq/L (21-32); Bilirubin Direct < 0.2 mg/dL (0-0.2); Bilirubin Indirect, Calculated 0.1 mg/dL (0.2-0.8); Bilirubin Total 0.3 mg/dL (0.2-1.0); Creatine Phosphokinase 92 U/L (39-308); Globulin 4.1 g/dL (2.3-3.5); Glomerular Filtration Rate 114 ml/min (=/>90); Glucose Level 93 mg/dL (74-106); Lipase 43 U/L (13-75); Magnesium 2.5 mg/dL (1.6-2.4); NT PRO-BNP < 5 pg/mL (<125); Potassium 3.4 mEq/L (3.5-5.1); Sodium Level 136 mEq/L (136-145); Troponin High Sensitivity < 3.0 pg/mL (<58.9)
[2023-11-05] MEDS ORDERED: CEFTRIAXONE 1000 MG/VIAL ONE (17:36)
[2023-11-05] MEDS ORDERED: ACETAMINOPHEN 325 MG TABLET ONE (17:37)
[2023-11-05] MEDS ORDERED: IBUPROFEN 200 MG TAB PO ONE (17:37)
[2023-11-05 17:48] LABS: SARS-CoV-2 Antigen CONTROL BLUE LINE VIS/BG OK; SARS-CoV-2 Antigen Rapid Res Positive (Negative)
--- NOTE | 2023-11-05 17:56 | RAD REPORT ---
EXAM DESCRIPTION: CT - Chest Abd Pelvis Wo Con - 11/05/2023 5:28 pm CLINICAL HISTORY: Cough and abdominal pain COMPARISON: CT abdomen 2020 TECHNIQUE: Computed axial tomography of the chest, abdomen and pelvis was obtained. Oral contrast wa s given. IV contrast was not requested. All CT scans are performed using dose optimization technique as appropriate and may include automated exposure control or mA/KV adjustment according to patient size. FINDINGS: The evaluation of mediastinum, lisha, vessels and solid organs is limited secondary to the lack of IV contrast administration The lungs are clear No mediastinal or hilar lymphadenopathy is seen. A pleural effusion is not present. A pericardial effusion is not seen. The liver, spleen, pancreas, adrenals and kidneys appear grossly normal There is no evidence of diverticulitis. Normal appendix IMPRESSION: No acute abnormality displayed
--- NOTE | 2023-11-05 17:56 | RAD REPORT ---
EXAM DESCRIPTION: Josselin Single View11/05/2023 4:40 pm CLINICAL HISTORY: Cough COMPARISON: 2020 FINDINGS: The lungs appear clear of acute infiltrate. The heart is normal size IMPRESSION: No acute abnormalities displayed
--- NOTE | 2023-11-05 18:13 | EDPHYS ---
Physician Documentation [facility] Name: Brenden Washington Age: 33 yrs Sex: Male : 1990 Arrival Date: 11/05/2023 Time: 15:47 Bed 14 Private MD: ED Physician Bacilio Andujar HPI: 11/04 18:07 This 33 yrs old Male presents to ER via Ambulatory with complaints of Cant amanda Cool Off. 18:07 fever , cant cool off. amanda Historical: - Allergies: 15:58 Coreg; ko1 15:58 Aspirin (Anaphylaxis); ko1 - PMHx: 15:58 Asthma; Hypertension; ko1 - Immunization history:: Adult Immunizations up to date. - Infectious Disease History:: Denies. - Social history:: Smoking status: Patient denies any tobacco usage or history of. ROS: 18:09 Eyes: Negative for injury, pain, redness, and discharge, ENT: Negative for injury, amanda pain, and discharge, Neck: Negative for injury, pain, and swelling, Cardiovascular: Negative for chest pain, palpitations, and edema, Respiratory: Negative for shortness of breath, cough, wheezing, and pleuritic chest pain, Abdomen/GI: Negative for abdominal pain, nausea, vomiting, diarrhea, and constipation, Back: Negative for injury and pain, : Negative for injury, bleeding, discharge, and swelling, MS/Extremity: Negative for injury and deformity, Skin: Negative for injury, rash, and discoloration, Neuro: Negative for headache, weakness, numbness, tingling, and seizure, 18:09 Constitutional: Positive for body aches, fever, Exam: 18:09 Constitutional: This is a well developed, well nourished patient who is awake, alert, amanda and in no acute distress. Head/Face: Normocephalic, atraumatic. Eyes: Pupils equal round and reactive to light, extra-ocular motions intact. Lids and lashes normal. Conjunctiva and sclera are non-icteric and not injected. Cornea within normal limits. Periorbital areas with no swelling, redness, or edema. ENT: Nares patent. No nasal discharge, no septal abnormalities noted. Tympanic membranes are normal and external auditory canals are clear. Oropharynx with no redness, swelling, or masses, exudates, or evidence of obstruction, uvula midline. Mucous membranes moist. Neck: Trachea midline, no thyromegaly or masses palpated, and no cervical lymphadenopathy. Supple, full range of motion without nuchal rigidity, or vertebral point tenderness. No Meningismus. Chest/axilla: Normal chest wall appearance and motion. Nontender with no deformity. No lesions are appreciated. Cardiovascular: Regular rate and rhythm with a normal S1 and S2. No gallops, murmurs, or rubs. Normal PMI, no JVD. No pulse deficits. Respiratory: Lungs have equal breath sounds bilaterally, clear to auscultation and percussion. No rales, rhonchi or wheezes noted. No increased work of breathing, no retractions or nasal flaring. Abdomen/GI: Soft, non-tender, with normal bowel sounds. No distension or tympany. No guarding or rebound. No evidence of tenderness throughout. Back: No spinal tenderness. No costovertebral tenderness. Full range of motion. Male : Normal genitalia with no discharge or lesions. Skin: Warm, dry with normal turgor. Normal color with no rashes, no lesions, and no evidence of cellulitis. MS/ Extremity: Pulses equal, no cyanosis. Neurovascular intact. Full, normal range of motion. Neuro: Awake and alert, GCS 15, oriented to person, place, time, and situation. Cranial nerves II-XII grossly intact. Motor strength 5/5 in all extremities. Sensory grossly intact. Cerebellar exam normal. Normal gait. Psych: Awake, alert, with orientation to person, place and time. Behavior, mood, and affect are within normal limits. 18:09 ECG was reviewed by the Attending Physician. 18:09 Musculoskeletal/extremity: DVT Exam: no pain, no swelling, no tenderness, negative Homans' sign noted on exam, no appreciated bluish discoloration, no erythema, no increased warmth, Vital Signs: 15:53 BP 137 / 101; Pulse 95; Resp 16; Temp 99.3(O); Pulse Ox 97% ; ko1 16:34 BP 141 / 105; Pulse 104; Resp 18 S; Pulse Ox 99% on R/A; kc6 17:00 BP 133 / 99; Pulse 82; Resp 17 S; Pulse Ox 99% on R/A; kc6 MDM: 15:51 Patient medically screened. amanda 18:11 Differential diagnosis: viral Infection, bacterial infection, URI, bronchitis, amanda pneumonia UTI, gastroenteritis, meningitis. Differential Diagnosis altered mental status, sepsis, flu. Data reviewed: vital signs, nurses notes, old medical records, lab test result(s), EKG, radiologic studies, CT scan, plain films. Consideration of Admission/Observation Escalation of care including admission/observation considered. I considered the following discharge prescriptions or medication management in the emergency department Medications were administered in the Emergency Department. See MAR. Independent interpretation of the following test(s) in the Emergency Department EKG: See my EKG interpretation above. Test considered but Not performed: Ultrasound no abd usg. Historians other than the Patient: Spouse/Significant Other: well informed. Care significantly affected by the following chronic conditions: Hypertension, crohns. 11/04 15:53 Order name: Basic Metabolic Panel; Complete Time: 17:04 [facility] 11/04 15:53 Order name: CBC with Diff; Complete Time: 17:04 [facility] 11/04 15:53 Order name: LFT's; Complete Time: 17:04 [facility] 11/04 15:53 Order name: Magnesium; Complete Time: 17:04 [facility] 11/04 15:53 Order name: NT PRO-BNP; Complete Time: 17:04 [facility] 11/04 15:53 Order name: PT-INR; Complete Time: 17:04 [facility] 11/04 15:53 Order name: Troponin HS; Complete Time: 17:04 [facility] 11/04 15:53 Order name: CPK; Complete Time: 17:04 [facility] 11/04 15:53 Order name: Lipase; Complete Time: 17:04 [facility] 11/04 17:06 Order name: SARS RAPID; Complete Time: 17:54 [facility] 11/04 17:06 Order name: Flu; Complete Time: 17:54 [facility] 11/04 17:06 Order name: Strep [facility] 11/04 17:07 Order name: Lactate w/ 2H reflex if indic. [facility] 11/04 17:07 Order name: Blood Culture Adult (2) [facility] 11/04 17:50 Order name: Throat Culture [facility] 11/04 15:53 Order name: XRAY Chest (1 view); Complete Time: 18:03 [facility] 11/04 17:28 Order name: Chest Abd Pelvis Wo Con; Complete Time: 18:03 [facility] 11/04 15:53 Order name: Cardiac monitoring; Complete Time: 16:12 [facility] 11/04 15:53 Order name: EKG - Nurse/Tech; Complete Time: 16:12 [facility] 11/04 15:53 Order name: IV Saline Lock; Complete Time: 16:12 [facility] 11/04 15:53 Order name: Labs collected and sent; Complete Time: 16:12 [facility] 11/04 15:53 Order name: O2 Per Protocol; Complete Time: 16:00 [facility] 11/04 15:53 Order name: O2 Sat Monitoring; Complete Time: 16:00 [facility] 11/04 17:07 Order name: PO challenge; Complete Time: 18:02 [facility] 11/04 18:06 Order name: PO challenge: juice; Complete Time: 18:12 [facility] EC:09 Rate is 97 beats/min. Rhythm is regular. QRS Revloc is Normal. QRS interval is normal. QT amanda interval is normal. No Q waves. T waves are Normal. No ST changes noted. Clinical impression: NSR w/ Non-specific ST/T Changes and No evidence of ischemia. Interpreted by me. Reviewed by me. Administered Medications: 16:17 Drug: NS 0.9% IV 1000 ml IV at 1 bolus Per protocol; 1000 mL bolus Route: IV; Rate: 1 kc6 bolus; Site: right antecubital; 18:44 Follow up: Response: No adverse reaction; IV Status: Completed infusion; IV Intake: kc6 1000ml 16:17 Drug: NS 0.9% IV 1000 ml IV at 1 bolus Per protocol; 1000 mL bolus Route: IV; Rate: 1 kc6 bolus; Site: right antecubital; 18:44 Follow up: Response: No adverse reaction; IV Status: Completed infusion; IV Intake: kc6 1000ml 18:02 Not Given (Patient Refused): [id number] mg PO once kc6 18:02 Not Given (Patient Refused): [id number] mg PO once kc6 18:02 Not Given (Patient Refused): rocephin1 grams IV at per protocol once; Given slow IV kc6 push per pharmacy instructions 18:44 Drug: Famotidine PO 40 mg PO once Route: PO; kc6 18:44 Drug: AZITHromycin PO 500 mg PO once Route: PO; kc6 Disposition Summary: 11/05/23 18:13 Discharge Ordered Notes: Location: Home amanda Problem: new amanda Symptoms: have improved amanda Condition: Stable amanda Diagnosis - Fever, unspecified amanda - SARS-associated coronavirus as the cause of diseases classified elsewhere amanda - Hypokalemia amanda Followup: amanda - With: Private Physician - When: 2 - 3 days - Reason: Recheck today's complaints, Continuance of care, Re-evaluation by your physician Discharge Instructions: - Discharge Summary Sheet [facility] - Potassium Content of Foods amanda - Fever, Adult amanda - Fever, Adult, [id number] amanda - Hypokalemia amanda - COVID-19 amanda - COVID-19: What Your Test Results Mean - [facility] (03/11/2021) amanda - Use Masks to Slow the Spread of COVID-19 - [facility] (01/23/2021) amanda - Symptoms of COVID-19 - [facility] (09/02/2021) amanda - Viral Illness, Adult amanda - COVID-19: Quarantine and Isolation - [facility] (09/10/2021) amanda - COVID-19: What to Do If You Are Sick - [facility] (09/02/2021) [facility] Forms: - Medication Reconciliation Form [facility] - Antibiotic Education amanda - Prescription Opioid Use [facility] - Patient Portal Instructions [facility] - Leadership Thank You Letter [facility] - Work release form kc6 Prescriptions: - Paxlovid 300 mg (150 mg x 2)-100 mg Oral Tablet, Dose Pack - take 1 dose pack ORAL route as directed on dose pack take TWO 150 mg tablets of amanda nirmatrelvir with ONE 100 mg tablet of ritonavir twice daily for 5 days; 30 tablet; Refills: 0, Product Selection Permitted - Pepcid 20 mg Oral tablet - take 1 tablet ORAL route every 12 hours for 21 days; 42 tablet; Refills: 0, [facility] Product Selection Permitted - Zithromax 500 mg Oral Tablet - take 1 tablet ORAL route once daily for 5 days; 5 tablet; Refills: 0, Product [facility] Selection Permitted Signatures: Dispatcher [employer] EDMS Bacilio Andujar MD MD cha Campbell, Kaitlyn RN RN kc6 Margarita Kendrick RN RN ko1 Corrections: (The following items were deleted from the chart) 17:06 17:06 SARS-COV-2 Antigen Rapid+I.LAB.BRZ ordered. EDMS EDMS 17:06 17:06 Influenza Screen (A \T\ B)+BA.LAB.BRZ ordered. EDMS EDMS 17:06 17:06 Group A Streptococcus Rapid Sc+BA.LAB.BRZ ordered. EDMS EDMS : 17:07 LACTATE+C.LAB.BRZ ordered. EDMS EDMS 17: 17:07 BLOOD CULTURE*+BA.LAB.BRZ ordered. EDMS EDMS 17: 17:06 Chest Abdomen Pelvis W Con+CT.RAD.BRZ ordered. EDMS EDMS
--- NOTE | 2023-11-05 18:13 | ER ---
Nurse's Notes [facility] Name: Brenden Washington Age: 33 yrs Sex: Male : 1990 Arrival Date: 11/05/2023 Time: 15:47 Bed 14 Private MD: Diagnosis: Fever, unspecified;SARS-associated coronavirus as the cause of diseases classified elsewhere;Hypokalemia Presentation: 11/04 15:53 Chief complaint: Patient states: got too hot on Wednesday and feels like I cant cool ko1 off. Feels a little weak, drinking plenty of water, also has a hx of Crohns. Coronavirus screen: At this time, the client does not indicate any symptoms associated with coronavirus-19. Ebola Screen: No symptoms or risks identified at this time. Initial Sepsis Screen: Does the patient meet any 2 criteria? No. Patient's initial sepsis screen is negative. Does the patient have a suspected source of infection? No. Patient's initial sepsis screen is negative. Risk Assessment: Do you want to hurt yourself or someone else? Patient reports no desire to harm self or others. Onset of symptoms is unknown. 15:53 Method Of Arrival: Ambulatory ko1 15:53 Acuity: ADI 4 ko1 Triage Assessment: 15:58 General: Appears in no apparent distress. Behavior is calm, cooperative, appropriate ko1 for age. Pain: Complains of pain in abdomen. Historical: - Allergies: 15:58 Coreg; ko1 15:58 Aspirin (Anaphylaxis); ko1 - PMHx: 15:58 Asthma; Hypertension; ko1 - Immunization history:: Adult Immunizations up to date. - Infectious Disease History:: Denies. - Social history:: Smoking status: Patient denies any tobacco usage or history of. Screenin:33 [facility] ED Fall Risk Assessment (Adult) History of falling in the last 3 months, kc6 including since admission No falls in past 3 months (0 pts) Confusion or Disorientation No (0 pts) Intoxicated or Sedated No (0 pts) Impaired Gait No (0 pts) Mobility Assist Device Used No (0 pt) Altered Elimination No (0 pt) Score/Fall Risk Level 0 - 2 = Low Risk. Abuse screen: Denies threats or abuse. Denies injuries from another. Nutritional screening: No deficits noted. Tuberculosis screening: No symptoms or risk factors identified. Assessment: 16:34 General: Appears in no apparent distress. comfortable, well groomed, well developed, kc6 Behavior is calm, cooperative, appropriate for age, Reports feeling ill for fatigue for. Pain: Denies pain. Neuro: Level of Consciousness is awake, alert, obeys commands, Oriented to person, place, time, situation, Appropriate for age Reports weakness. Cardiovascular: Denies chest pain, shortness of breath, Capillary refill < 3 seconds. Respiratory: Airway is patent Trachea midline Respiratory effort is even, unlabored, Respiratory pattern is regular, symmetrical. GI: No signs and/or symptoms were reported involving the gastrointestinal system. : No signs and/or symptoms were reported regarding the genitourinary system. EENT: No signs and/or symptoms were reported regarding the EENT system. Derm: No signs and/or symptoms reported regarding the dermatologic system. Skin is intact, is healthy with good turgor, Skin is pink, warm \T\ dry. Musculoskeletal: No signs and/or symptoms reported regarding the musculoskeletal system. Circulation, motion, and sensation intact. Capillary refill < 3 seconds, Range of motion: intact in all extremities. 17:34 Reassessment: Patient appears in no apparent distress at this time. No changes from kc6 previously documented assessment. Patient and/or family updated on plan of care and expected duration. Pain level reassessed. Patient is alert, oriented x 3, equal unlabored respirations, skin warm/dry/pink. Vital Signs: 15:53 BP 137 / 101; Pulse 95; Resp 16; Temp 99.3(O); Pulse Ox 97% ; ko1 16:34 BP 141 / 105; Pulse 104; Resp 18 S; Pulse Ox 99% on R/A; kc6 17:00 BP 133 / 99; Pulse 82; Resp 17 S; Pulse Ox 99% on R/A; kc6 ED Course: 15:50 Patient arrived in ED. mg5 15:51 Bacilio Andujar MD is Attending Physician. amanda 15:58 Triage completed. ko1 15:58 Arm band placed on right wrist. Patient placed in an exam room, Patient notified of ko1 wait time. 15:59 Lexy Johnson RN is Primary Nurse. kc6 16:12 Lipase Sent. jg11 16:12 CPK Sent. jg11 16:12 Basic Metabolic Panel Sent. jg11 16:12 LFT's Sent. jg11 16:12 Magnesium Sent. jg11 16:12 NT PRO-BNP Sent. jg11 16:12 PT-INR Sent. jg11 16:12 Troponin HS Sent. jg11 16:13 Initial lab(s) drawn, by ED staff, sent to lab. EKG done, by ED staff, reviewed by [email or web address] Bacilio Andujar MD. Inserted saline lock: 20 gauge in right antecubital area, using aseptic technique. Blood collected. 16:33 Patient has correct armband on for positive identification. Bed in low position. Call kc6 light in reach. Side rails up X 1. Client placed on continuous cardiac and pulse oximetry monitoring. NIBP monitoring applied. Pillow given. 16:40 XRAY Chest (1 view) In Process Unspecified. EDMS 17:17 Strep Sent. jg11 17:17 Flu Sent. jg11 17:17 SARS RAPID Sent. jg11 17:17 COVID swab sent to lab. Flu and/or RSV swab sent to lab. Strep swab sent to lab. jg11 17:28 Chest Abd Pelvis Wo Con In Process Unspecified. EDMS 18:03 Inserted saline lock: 20 gauge in left antecubital area, using aseptic technique. Blood kc6 collected. 18:45 No provider procedures requiring assistance completed. IV discontinued, intact, kc6 bleeding controlled, No redness/swelling at site. Pressure dressing applied. Administered Medications: 16:17 Drug: NS 0.9% IV 1000 ml IV at 1 bolus Per protocol; 1000 mL bolus Route: IV; Rate: 1 kc6 bolus; Site: right antecubital; 18:44 Follow up: Response: No adverse reaction; IV Status: Completed infusion; IV Intake: kc6 1000ml 16:17 Drug: NS 0.9% IV 1000 ml IV at 1 bolus Per protocol; 1000 mL bolus Route: IV; Rate: 1 kc6 bolus; Site: right antecubital; 18:44 Follow up: Response: No adverse reaction; IV Status: Completed infusion; IV Intake: kc6 1000ml 18:02 Not Given (Patient Refused): mg PO once kc6 18:02 Not Given (Patient Refused): [id number] mg PO once kc6 18:02 Not Given (Patient Refused): rocephin1 grams IV at per protocol once; Given slow IV kc6 push per pharmacy instructions 18:44 Drug: Famotidine PO 40 mg PO once Route: PO; kc6 18:44 Drug: AZITHromycin PO 500 mg PO once Route: PO; kc6 Medication: 18:45 VIS not applicable for this client. kc6 Intake: 18:44 IV: 1000ml; Total: 1000ml. kc6 18:44 IV: 1000ml; Total: 2000ml. kc6 Outcome: 18:13 Discharge ordered by . amanda 18:45 Discharged to home ambulatory, with family, kc6 18:45 Condition: good 18:45 Discharge instructions given to patient, Instructed on discharge instructions, follow up and referral plans. medication usage, Demonstrated understanding of instructions, follow-up care, medications, Prescriptions given X 3, 18:45 Patient left the ED. kc6 Signatures: Dispatcher [employer] EDMS Bacilio Andujar MD MD cha Campbell, Kaitlyn, RN RN kc6 Margarita Kenrdick RN RN Reena Cazares 5 Jun Benites [email or web address]
[2023-11-05] MEDS ORDERED: AZITHROMYCIN 250 MG TAB ONE (18:32)
[2023-11-05] MEDS ORDERED: FAMOTIDINE 20 MG TAB ONE (18:32)
[2023-11-05 19:32] VITALS: BP 133/99; TEMP 99.3; O2SAT 99
--- NOTE | 2023-11-09 14:27 | EKG ---
Test Date: 2023-11-05 Test Time: 16:09:20 [employer]: DAV[place] MEASUREMENT RESULTS: Intervals: Rate: 97 NM: 120 QRSD: 94 QT: 340 QTc: 431 [place]: P: 72 NM: 120 QRS: 65 T: 27 INTERPRETIVE STATEMENTS: Normal sinus rhythm Nonspecific T wave abnormality Abnormal ECG Compared to ECG 08/15/2020 13:50:40 T-wave abnormality now present Electronically Signed On 11-09-23 14:15:33 CDT by Cali Mosher
== END 2023-11-05 18:45 | disposition home or self-care (01) ==
LOC: ER 15:47
DX: U07.1 COVID-19 (principal); E87.6 Hypokalemia
CPT/HCPCS: 36415; 71045; 71250; 74176; 80048; 80076; 82550; 83605; 83690; 83735; 83880; 84484; 85025; 85610; 87040; 87070; 87081; 87804; 87811; 93005; 96360; 96361; 99285; J0696

== ENCOUNTER 2024-02-24 21:51 | Emergency (ER) | payer SELFPAY ==
--- OUTSIDE RECORDS SUMMARY | 2024-02-24 21:54 | XMS REPORT | Continuity of Care Document ---
Author Name Unknown Address [address] [facility] [place] [address] [facility] Address [address] 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 Name Role Phone Pcp-None Primary Care Physician Unavailab Shan De Luna Attending Clinician Unavailable Kameron MULLER Attending Clinician Unavailable Kameron Lino Attending Clinician [phone] KERRY FLORES Attending Clinician Unavailab Kerry Rdz DO Attending Clinician [phone] YANI MENDOZA Attending Clinician Unavaila Yani Soto Attending Clinician [phone] Doctor Unassigned, Amoret Attending Clinician U ROSIBEL Hyde Attending Clinician Unavailable Lab, Adc Fam Pob I Attending Clinician Unavailab Rosibel Burris Attending Clinician [phone] JERICA HAINES Attending Clinician Unavailab moreno Payers Payer Name Policy Type Policy Number Effective Date Expirati on Date Source COVID19 [id number] 2020 00:00:00 Problems Condition Name Condition Details Condition Category Status Onset Date Resolution Date Last Treatment Date Treating Clinician Comments Source No known active problems No known active problems Disease [facility] Allergies, Adverse Reactions, Alerts Allergy Name Allergy Type Status Severity Reaction(s) Onset Date Inactive Date Treating Clinician Comments Source aspirin DA Active U Unknown 01-31 00:00: 00 [facility] carvedil ol DA Active U Unknown 8 00:00: 00 [facility] ASPIRIN DRUG INGREDI Active Other-Cmnt 2020-06 00:00: 00 [facility] CARVEDIL OL DRUG INGREDI Active Other-Cmnt 2020-06 00:00: 00 [facility] Aspirin Propensi ty to adverse reaction s Active Other - See comments 2020-06 00:00: 00 "syncope" [facility] Carvedil ol Propensi ty to adverse reaction s Active Other - See comments 2020-06 00:00: 00 [facility] NO KNOWN ALLERGIE S Drug Class Active [facility] Social History Social Habit Start Date Stop Date Quantity Comments Source Exposure to SARS-CoV-2 (event) 2022-09-06 00:00:00 2022-09-16 14:27:00 Not sure [facility] Sex Assigned At 1990 00:00:00 1990 00:00:00 [facility] Smoking Status Start Date Stop Date Source Tobacco smoking consumption unknown [facility] Medications Ordered Medication Name Filled Medication Name Start Date Stop Date Current Medication? Ordering Clinician Indication Dosage Frequency Signature (SIG) Comments Components Source levalbutero l (XOPENEX) nebulizer solution 1.25 mg 09-16 20:30: 00 09-16 19:44 :00 No 1.25mg 1.25 mg, Inhalation , ONCE, 1 dose, On Wed09/16/22 at 1530, Routine [facility] NaCl 0.9% (NS) bolus infusion 1,000 mL 07-30 18:15: 00 07-31 06:14 :00 No 1000mL at 999 mL/hr, 1,000 mL, IV Infusion, ONCE, 1 dose, On Wed07/30/21 at 1215, TERENCE [facility] No known medications 2022-0 2-16 11:19: [address] [facility] Vital Signs Vital Name Observation Time Observation Value Comments S christ Systolic blood pressure 2022-11-19 15:12:00 138 mm[Hg] [facility] Diastolic blood pressure 2022-11-19 15:12:00 100 mm[Hg] [facility] Heart rate 2022-11-19 15:12:00 83 /min [facility] Body temperature 2022-11-19 15:12:00 36.72 Smita [facility] Respiratory rate 2022-11-19 15:12:00 16 /min [facility] Body weight 2022-11-19 15:12:00 76.204 kg [facility] BMI 2022-11-19 15:12:00 25.54 kg/m2 [facility] Oxygen saturation in Arterial blood by Pulse oximetry 2022-11-19 15:12:00 98 /min [facility] Heart rate 2022-09-16 20:01:00 99 /min [facility] Respiratory rate 2022-09-16 20:01:00 18 /min [facility] Oxygen saturation in Arterial blood by Pulse oximetry 2022-09-16 20:01:00 99 /min [facility] Systolic blood pressure 2022-09-16 19:26:00 138 mm[Hg] [facility] Diastolic blood pressure 2022-09-16 19:26:00 90 mm[Hg] [facility] Body temperature 2022-09-16 19:26:00 37.22 Smita [facility] Body height 2022-09-16 19:26:00 172.7 cm [facility] Body weight 2022-09-16 19:26:00 79.379 kg [facility] BMI 2022-09-16 19:26:00 26.61 kg/m2 [facility] Systolic blood pressure 2021-07-30 16:42:00 144 mm[Hg] [facility] Diastolic blood pressure 2021-07-30 16:42:00 98 mm[Hg] [facility] Heart rate 2021-07-30 16:42:00 87 /min [facility] Body temperature 2021-07-30 16:42:00 37.06 Smita [facility] Respiratory rate 2021-07-30 16:42:00 14 /min [facility] Body height 2021-07-30 16:42:00 172.7 cm [facility] Body weight 2021-07-30 16:42:00 69.899 kg [facility] BMI 2021-07-30 16:42:00 23.43 kg/m2 [facility] Oxygen saturation in Arterial blood by Pulse oximetry 2021-07-30 16:42:00 100 /min [facility] Systolic blood pressure 2021-04-10 16:32:00 146 mm[Hg] [facility] Diastolic blood pressure 2021-04-10 16:32:00 99 mm[Hg] [facility] Heart rate 2021-04-10 16:32:00 89 /min [facility] Body temperature 2021-04-10 16:32:00 36.89 Smita [facility] Respiratory rate 2021-04-10 16:32:00 17 /min [facility] Body weight 2021-04-10 16:32:00 68.04 kg [facility] Oxygen saturation in Arterial blood by Pulse oximetry 2021-04-10 16:32:00 100 /min [facility] Procedures Procedure Date / Time Performed Performing Clinicia n Source ASSIGNMENT OF BENEFITS 2022-11-19 15:27:20 Docto r Unassigned, Amoret [facility] CONSENT/REFUSAL FOR DIAGNOSIS AND TREATMENT 2022-11-19 15:04:02 Doctor Unassigned, Amoret [facility] NOTICE OF PRIVACY PRACTICES 2022-09-16 19:21:06 Doctor Unassigned, Amoret [facility] CONSENT/REFUSAL FOR DIAGNOSIS AND TREATMENT 2022-09-16 19:19:49 Doctor Unassigned, Amoret [facility] NOTICE OF PRIVACY PRACTICES 2021-07-30 16:41:12 Doctor Unassigned, Amoret [facility] CONSENT/REFUSAL FOR DIAGNOSIS AND TREATMENT 2021-07-30 16:37:50 Doctor Unassigned, Amoret [facility] CONSENT/REFUSAL FOR DIAGNOSIS AND TREATMENT 2021-04-10 16:29:21 Doctor Unassigned, Amoret [facility] Encounters Start Date/Time End Date/Time Encounter Type Admission Type Attending [facility] Care Department Encounter ID Source 2023-01-31 17:56:41 Emergency HFD HFD [id number] [facility] 2023-01-31 17:15:00 2023-01-31 22:25:00 Emergency Emergency TeddyShan [facility] [id number] [facility] 2023-01-31 17:15:00 2023-01-31 22:25:00 Emergency Emergency TeddyShan [facility] [id number] [facility] 2022-11-19 10:14:00 2022-11-19 11:35:00 Emergency X Kameron MULLER [facility] ERT [id number] [facility] 2022-11-19 10:14:00 2022-11-19 11:35:00 Emergency Kameron Muller [facility] [id number] [facility] 2022-09-16 14:29:00 2022-09-16 15:51:00 Emergency X KERRY FLORES [facility] ERT [id number] [facility] 2022-09-16 14:29:00 2022-09-16 15:51:00 Emergency Kerry Flores [facility] [id number] [facility] 2021-07-30 10:45:00 2021-07-30 11:33:00 Emergency X YANI MENDOZA [facility] ERT [id number] [facility] 2021-07-30 10:45:00 2021-07-30 11:33:00 Emergency Yani Mendoza [facility] [id number] [facility] 2021-07-30 00:00:00 2021-07-30 00:00:00 Orders Only Doctor Unassigned, Amoret [facility] [id number] [id number] [id number] [facility] 2021-04-10 11:33:00 2021-04-10 12:08:00 Emergency X [facility] ERT [id number] [facility] 2021-04-10 11:33:00 2021-04-10 12:08:00 Emergency [facility] [id number] [id number] 4.2.7.2.[id number] [facility] 2020-08-06 09:40:00 2020-08-06 09:40:00 Outpatient R ROSIBEL KILGORE [facility] [id number] [facility] 2020-08-06 09:08:02 2020-08-06 09:28:02 Laboratory Only Lab, [facility] [address] [id number] [id number] 4.2.7.2.686 [id number] 2020-08-06 09:08:02 2020-08-06 09:28:02 Laboratory Only Lab, [facility] [id number] [id number] [id number] [facility] 2020-07-19 15:40:00 2020-07-19 15:11:52 Outpatient R JERICA HAINES [facility] [id number] [facility] Results Test Description Test Time Test Comments Results Result Co mments Source Complete Blood Count Auto [id number] 19:14:00* Test Item Value Reference Range Interpretation [...] code = NRBCP) 0 % Prothrombin Time [id number] 18:25:00* Test Item Value Reference Range Interpretation [...] 3.5 Mechanical Heart, Intracardiac Thrombosis. Partial Thromboplastin [id number] 18:25:00* Test Item Value Reference Range Interpretation Comme nts Partial Thromboplastin Time (test code = PTT) 28.8 Seconds 23.9-32.8 N Comprehensive Metabolic [id number] 18:25:00* Test Item Value Reference Range Interpretation [...] a race coefficient. Additional information canbe found at:[email or web address] [email or web address] 5.pdf ([email or web address]) [Automated message] The system [...] = ALP) 141 U/L 46-116 H Creatine [id number] 18:25:00* Test Item Value Reference Range Interpretation Comme nts Creatine Kinase (test code = CK) 122 U/L 46-171 N Troponin I High [id number] 18:25:00* Test Item Value Reference Range Interpretation Comme nts Troponin I High Sensitivity (test code = TROPHS) < 3 ng/L 0-45 N [id number] 18:25:00* Test Item Value Reference Range Interpretation Comme nts Lipase (test code = LIP) 33 U/L 12-53 [facility] [address] [place] [address] Patient Name: Brenden De Leon Medical Record#: [id number] Address: [address] [place] [address] City/State/Zip: [place] [address]: Shan Espinal DO Insurance: Self Pay /Age/Sex: 1990/32/M Admit/Reg Date: 01/31/[address]: Zunilda aBer NP Location: [facility]/ PCP: Pcp-Md MIKE Acevedo Date of Service: 01/31/23 Order (s): EKG ED Electrocardiogram CPT Code: 37794 Report Number: [id number] Reason for Exam: dizziness Sinus tachycardia Lead(s) unsuitable for analysis: V5 Short WY interval Diffuse ST-T abnormality is nonspecific Summary: Borderline ECG Dictated By: Alberto Escalera MD 01/31/231732 Signed By: Alberto Escalera MD 02/11/23 1559 TD/TT: 01/31/231732 Tech: MW02 cc: [email or web address]; PCPNO* Zunilda Baer NP; Pcp-Md MIKE Acevedo Notes Date/Time Note Provider Source 2023-01-31 18:33:00 [facility] C enter [address] [place] [address] Emergency Department Document Signed Patient: Brenden De Leon Medical Record#: [id number] : 1990 Acct:[id number] Age/Sex: 32 / M Admit/Reg Date: 01/31/23 Loc: [facility] Room: Report Number: [id number] Attending Dr: Shan Espinal DO <Zunilda Baer - Last Filed: 02/01/23 00:36> Arrival - Arrival ED Triage Note: Pt presents in ED, arrived by EMS, c/o Dizziness and Weakness after vomiting, while at the [employer]. Pt reports Hx - Crohn's Disease. - EMS Pre-Hospital Finger Stick Blood Glucose Result: 132 History of Present Illness Chief Complaint: Weakness Stated Complaint: General Weakness and Dizziness Nursing note reviewed: Yes Source: patient Exam/History Limitations: no limitations Primary Care Provider: Pcp-Md Curtis History of Present Illness: 32-year-old male history of Crohn's disease presents the ED from the Kg was gained complaining of abdominal cramping, nausea vomiting and dizziness. Patient states that recently was let go, has not had insurance and has been unable to receive his Crohn's infusions for the last 3 months. Patient states on the daily feels generalized fatigue, states however today at the game it was extremely hot, patient states he began to have a headache, went to get some water, states became very nauseated and had several episodes of vomiting. Patient reports generalized abdominal c ramping/soreness from vomiting. Patient reports some lightheadedness/dizziness. Patient denies any current chest pain, hematochezia, hematemesis, SOB, vision changes, numbness, paresthesia, saddle a nesthesia, bowel or bladder incontinence, neck or back pain, fever, cough/congestion, questionable i ngestion or syncope. Patient is alert oriented x3, answering questions appropriately, appears in di stress at this time, moves all extremities x4 [...] and S2. No appreciated murmurs. Strong radial pulses with intact distal perfusion GASTROINTESTINAL: Soft, non-tender, non-distended, no palpable masses, no rebound or guarding GENITOURINARY: No costovertebral angle tenderness to palpationy MUSCULOSKELETAL: Extremities are nontender to palpation and have no gross deformity, no edema, redness, or swelling NEUROLOGIC: A/o x 3, GCS 15, normal mentation and speech. Moves all extremities x 4 without motor or sensory deficit PSYCHIATRIC: Normal mood and affect, thought [...] % (Auto) Cancelled Lymph % (Auto) Cancelled [place] % (Auto) Cancelled Eos % (Auto) Cancelled Baso % (Auto) Cancelled Neut # (Auto) Cancelled Lymph # (Auto) Cancelled [place] # (Auto) Cancelled Eos # (Auto) Cancelled [...] 86.8 H Lymph % (Auto) 7.9 L [place] % (Auto) 4.3 Eos % (Auto) 0.5 Baso % (Auto) 0.2 Neut # (Auto) 10.4 H Lymph # (Auto) 0.95 [place] # (Auto) 0.52 Eos # (Auto) 0.06 [...] (Auto) Neut % (Auto) Lymph % (Auto) [place] % (Auto) Eos % (Auto) Baso % (Auto) Neut # (Auto) Lymph # (Auto) [place] # (Auto) Eos # (Auto) Baso # [...] Lipase MDM: EKG sinus tachycardia, rate 108, WY 122, QRS 87, QTC 444, no ST elevation noted, nonspecific T-wave changes, EKG seen interpreted by Dr. Espinal CBC shows mild leukocytosis at 12.0, otherwise grossly unremarkable, CMP unremarkable, CK 141, lipase 33, troponin negative x2 Patient given 2 L NS bolus, reassessment patient reports resolution of headache. Advised patient w ould like to CT image head abdomen pelvis. Patient refusing CT head. Patient is in agreement with CT abdomen pelvis, however prior to imaging studies being performed, patient states he needs to get home to his children, advised patient the risks of leaving against medical advise, patient verbalized understanding of this. Patient states feels improved with the IV fluids, advised patient of the risks of readmission, worsening condition even , patient verbalized understanding of this, signed AMA paperwork and left the ED, patient states will follow- up with his primary care provider. Patient left [...] History of Present Illness Primary Care Provider: Pcp-Curtis, Physical Exam Triage Vital Signs: Temperature 36.9 [...] % (Auto) Cancelled, Lymph % (Auto) Cancelled, [place] % (Auto) Cancelled, Eos % (Auto) Cancelled, Baso % (Auto) Cancelled, Neut # (Auto) Cancelled, Lymph # (Auto) Cancelled, [place] # (Auto) Cancelled, Eos # (Auto) Cancelled, [...] MCV 89.40, MCH 30.7, MCHC 34.30, RDW Coeff of Casey 12.2, Plt Count 220, MPV 10.4, Immature Gran % (Auto) 0.3, Neut % (Auto) 86.8 H, Lymph % (Auto) 7.9 L, [place] % (Auto) 4.3, Eos % (Auto) 0.5, Baso % (Auto) 0.2, Neut # (Auto) 10.4 H, Lymph # (Auto) 0.95, [place] # (Auto) 0.52, Eos # (Auto) 0.06, Baso # (Auto) 0.03, Immature Gran # (Auto) 0.04, Absolute Nucleated RBC 0, Nucleated RBC % (auto) [...] to emergency department via EMS from the [employer] game, complaining of nausea vomiting and dizziness. [...] precautions and outpatient follow-up provided. Patient's tachycardia likely result of volume depletion, improved with fluids. 02/04/23 06:15 Critical Care Time Critical Care Time: Yes Total Critical Care Time: 45 (Minutes) Attestation: CRITICAL CARE NOTE 45 minutes of total critical care time spent, patient at risk of critical illness from circulatory failure secondary to dehydration, my immediate management included [...] the patient and performed a substantive portion of the visit including: all aspects of: medical decision making Discharge Plan - Discharge Clinical Impression: Nausea vomiting, Left against medical advice Disposition: Left Against Medical Advice Condition: Fair Referrals: Pcp-Curtis,MD Mike [Primary Care Provider] - Print Language: Vietnamese - Discharge Data Time Seen by Provider: 01/31/23 17:25 - Depart Patient Account Discharge Date/Time: 01/31/23 22:25 Dictated By: Zunilda Baer NP Signed By: Zunilda Baer NP 02/01/23 0040 Shan Espinal DO 02/04/23 0615 DD/ 32 TD/TT: 01/31/231832 Home Service Demonstrator: [email or web address] cc: PCPNO* Pcp-Curtis,Md MCKEON [facility]
--- NOTE | 2024-02-24 22:09 | RAD REPORT ---
EXAMINATION: ONE VIEW CHEST XR CLINICAL INDICATION: Male, 34 years old. Hypertension, chest pain. TECHNIQUE: Frontal chest projection is submitted. Examination is limited by patient positioning and t echnique. COMPARISON: 11/05/2023 FINDINGS: Interstitial lung markings are mildly prominent. This may indicate viral infection or mild interstiti al edema. The heart is upper limit of normal in size. No focal consolidation suggest pneumonia.
[2024-02-24] MEDS ORDERED: NA CHLORIDE 0.9% 1,000 ML ONE (22:39)
[2024-02-24 22:44] LABS: Absolute Eosinophils 0.1 K/uL (0-0.5); Absolute Lymphocytes (CBC) 1.4 K/uL (0.7-4.9); Absolute Monocytes 0.5 K/uL (0.1-1.3); Absolute Neutrophil 4.1 K/uL (1.8-8.0); Basophils % 0.6 % (0-1.3); Eosinophils % 2.1 % (0-4.4); Hematocrit 42.5 % (39.6-49.0); Hemoglobin 14.6 g/dL (13.6-17.9); Lymphocytes % 22.9 % (15.3-44.8); MCH 31.1 pg (27.0-35.0); MCHC 34.5 g/dL (32.0-36.0); MCV 90.4 fL (80-100); MPV 8.1 fL (7.6-11.3); Monocytes % 8.5 % (3.3-12.3); Neutrophils % 65.9 % (41.7-73.7); Platelets 219 thou/uL (152-406); Red Cell Distribution Width 13.4 % (12.1-15.2)
[2024-02-24 23:12] LABS: ALT/SGPT 40 U/L (16-61); AST/SGOT 18 U/L (15-37); Albumin 3.7 g/dL (3.4-5.0); Albumin/Globulin Ratio 0.9 (1.1-1.8); Alkaline Phosphatase 117 U/L (45-117); Anion Gap 7.6 mEq/L (5.0-15.0); BUN Blood Urea Nitrogen 16 mg/dL (7-18); Bicarbonate 30 mEq/L (21-32); Bilirubin Total 0.3 mg/dL (0.2-1.0); Glomerular Filtration Rate 116 ml/min (=/>90); Glucose Level 94 mg/dL (74-106); Magnesium 2.2 mg/dL (1.6-2.4); Potassium 3.6 mEq/L (3.5-5.1); Protein, Total 7.7 g/dL (6.4-8.2); Sodium Level 138 mEq/L (136-145)
[2024-02-24 23:19] LABS: Bilirubin Direct < 0.2 mg/dL (0-0.2); Bilirubin Indirect, Calculated 0.1 mg/dL (0.2-0.8); Troponin High Sensitivity < 3.0 pg/mL (<58.9)
[2024-02-25 00:13] LABS: Specific Gravity 1.019 (1.005-1.030); Sqamous Epithelial None Seen /HPF (None Seen); Urine Bacteria <20 /HPF (<20); Urine Bilirubin NEGATIVE (Negative); Urine Blood Negative (Negative); Urine Clarity Extremely Turbid (Clear); Urine Color Light-Yellow (Yellow); Urine Culture Reflex Order NOT NEEDED; Urine Glucose NEGATIVE (Negative); Urine Ketones NEGATIVE (Negative); Urine Microscopic Reflex YN ORDER UMIC; Urine Mucus 4+ /HPF (None Seen); Urine Nitrite NEGATIVE (Negative); Urine Protein TRACE (Negative); Urine RBC None Seen /HPF (None Seen); Urine Urobilinogen Normal (Normal); Urine WBC <5 /HPF (<5)
[2024-02-25 00:16] LABS: Barbiturates NEGATIVE (NEGATIVE); Benzodiazepines NEGATIVE (NEGATIVE); Cocaine NEGATIVE (NEGATIVE); METHAMPHETAM NEGATIVE (NEGATIVE); Methadone NEGATIVE (NEGATIVE); Opiates NEGATIVE (NEGATIVE); Phencyclidine NEGATIVE (NEGATIVE); THC Cannibis NEGATIVE (NEGATIVE)
--- NOTE | 2024-02-25 00:51 | ER ---
Nurse's Notes [facility] Name: Brenden Washington Age: 34 yrs Sex: Male : 1990 Arrival Date: 02/24/2024 Time: 21:51 Bed 14 Private MD: Diagnosis: Elevated blood-pressure reading, without diagnosis of hypertension Presentation: 02/23 22:00 Chief complaint: Patient states: WAS SITTING IN HIS CAR AND STARTED TO FEEL "FUNNY" jj7 WENT TO [facility] TO HAVE THEM CHECK HIM OUT AND HIS BLOOD PRESSURE WAS HIGH. Coronavirus screen: At this time, the client does not indicate any symptoms associated with coronavirus-19. Ebola Screen: No symptoms or risks identified at this time. Initial Sepsis Screen: Does the patient meet any 2 criteria? HR > 90 bpm. Yes Does the patient have a suspected source of infection? No. Patient's initial sepsis screen is negative. Risk Assessment: Do you want to hurt yourself or someone else? Patient reports no desire to harm self or others. Onset of symptoms was February 24, 2024 at 21:45. 22:00 Method Of Arrival: EMS: [facility] jj7 22:00 Acuity: ADI 3 jj7 Triage Assessment: 22:03 General: Appears in no apparent distress. comfortable, Behavior is calm, cooperative, jj7 appropriate for age. Pain: Denies pain. Cardiovascular: Reports HTN Denies chest pain, palpitations, shortness of breath, Capillary refill < 3 seconds Patient's skin is warm and dry. GI: Reports nausea. Historical: - Allergies: 22:03 Aspirin (Anaphylaxis); jj7 22:03 Coreg; jj7 - PMHx: 22:03 Asthma; Hypertension; Crohn's disease; jj7 - PSHx: 22:03 None; jj7 - Immunization history:: Adult Immunizations not up to date, Client reports having NOT received the Covid vaccine. - Infectious Disease History:: Denies. - Social history:: Smoking status: Patient reports the use of cigarette tobacco products, unknown amount Patient/guardian denies using alcohol, street drugs. Screenin:06 [facility] ED Fall Risk Assessment (Adult) History of falling in the last 3 months, jj7 including since admission No falls in past 3 months (0 pts) Confusion or Disorientation No (0 pts) Intoxicated or Sedated No (0 pts) Impaired Gait No (0 pts) Mobility Assist Device Used No (0 pt) Altered Elimination No (0 pt) Score/Fall Risk Level 0 - 2 = Low Risk Oriented to surroundings, Maintained a safe environment, Educated pt \\T\\ family on fall prevention, incl call for assistance when getting out of bed, Assessed \\T\\ reinforced patient's understanding of fall precautions. Abuse screen: Denies threats or abuse. Nutritional screening: No deficits noted. Tuberculosis screening: No symptoms or risk factors identified. Assessment: 22:06 Reassessment: SEE TRIAGE ASSESSMENT. [facility] Vital Signs: 22:00 BP 148 / 104; Pulse 108; Resp 16; Temp 98.3; Pulse Ox 97% ; Weight 77.11 kg; Height 5 j ft. 8 in. ; Pain 0/10; 22:40 BP 131 / 97; Pulse 92; Resp 17; Pulse Ox 97% ; j7 22:41 BP 129 / 100 RA; Pulse 88; Resp 19; Pulse Ox 97% ; j7 23:39 BP 132 / 95; Pulse 84; Resp 17; Pulse Ox 97% ; 7 02/24 00:42 BP 131 / 98; Pulse 88; Resp 17; Pulse Ox 99% ; jj7 00:59 BP 127 / 98; Pulse 88; Resp 17; Temp 98.1; Pulse Ox 100% ; Pain 0/10; j7 02/23 22:00 Body Mass Index 25.85 (77.11 kg, 172.72 cm) [facility] 02/23 22:00 Pain Scale: Adult jj7 00:59 Pain Scale: Adult jj7 ED Course: 02/23 21:53 Patient arrived in ED. rv1 21:53 Bacilio Das PA is PHCP. cp 21:53 Eduar Burgos MD is Attending Physician. cp 22:00 Karen Chambers RN is Primary Nurse. j7 22:03 Triage completed. j7 22:03 Arm band placed on right wrist. Patient placed in an exam room, on a stretcher, on jj7 ekg monitor, on pulse oximetry. 22:05 XRAY Chest (1 view) In Process Unspecified. EDMS 22:06 Patient has correct armband on for positive identification. Placed in gown. Bed in low jj7 position. Call light in reach. Side rails up X2. Provided Education on: USE OF CALL VALENCIA. Client placed on continuous cardiac and pulse oximetry monitoring. NIBP monitoring applied. patient monitor on. 22:17 EKG done, by ED staff, reviewed by Bacilio ASHBY. oe 22:41 Basic Metabolic Panel Sent. jj7 22:41 CBC with Diff Sent. jj7 22:41 LFT's Sent. jj7 22:41 Magnesium Sent. jj7 22:41 Troponin HS Sent. jj7 23:10 CT Head Brain wo Cont In Process Unspecified. EDMS 02/24 00:08 Urinalysis w/ reflexes Sent. jj7 00:08 UDS Sent. jj7 01:00 No provider procedures requiring assistance completed. IV discontinued, intact, jj7 bleeding controlled, No redness/swelling at site. Pressure dressing applied. Administered Medications: 02/23 22:44 Drug: NS 0.9% IV 1000 ml IV at 1 bolus Per protocol Route: IV; Rate: 1 bolus; Site: [facility] right antecubital; 02/24 00:20 Follow up: IV Status: Completed infusion jj7 Medication: 02/23 22:06 VIS not applicable for this client. jj7 Outcome: 02/24 00:51 Discharge ordered by . violetta 01:00 Discharged to home ambulatory, jj7 01:00 Condition: improved 01:00 Discharge instructions given to patient, Instructed on discharge instructions, follow up and referral plans. Demonstrated understanding of instructions, follow-up care, 01:04 Patient left the ED. jj7 Signatures: Dispatcher [employer] EDNM Bacilio Das PA PA cp Espinosa, Orlando oe Johnson, Juwairiyah, RN RN jj7 [address] rv1
--- NOTE | 2024-02-25 00:51 | EDPHYS ---
Physician Documentation [facility] Name: Brenden Washington Age: 34 yrs Sex: Male : 1990 Arrival Date: 02/24/2024 Time: 21:51 Bed 14 Private MD: ED Physician Eduar Burgos HPI: 02/23 22:00 This 34 yrs old Male presents to ER via EMS with complaints of High Blood cp Pressure. 22:00 The patient has elevated blood pressure and discovered this [facility]. cp Onset: The symptoms/episode began/occurred today. 22:00 Patient is a 34-year-old male with past medical history significant for Crohn's disease cp who presents to the emergency department via EMS with complaints of elevated blood pressure. Patient reports she was at work using his phone and reports she just did not feel well so he went to [facility] to have his blood pressure checked. Denies any chest pain, denies any headache and/or weakness but EMS services reported his blood pressure was elevated with a systolic pressure in the 160s. Historical: - Allergies: 22:03 Aspirin (Anaphylaxis); jj7 22:03 Coreg; jj7 - PMHx: 22:03 Asthma; Hypertension; Crohn's disease; jj7 - PSHx: 22:03 None; jj7 - Immunization history:: Adult Immunizations not up to date, Client reports having NOT received the Covid vaccine. - Infectious Disease History:: Denies. - Social history:: Smoking status: Patient reports the use of cigarette tobacco products, unknown amount Patient/guardian denies using alcohol, street drugs. ROS: 22:05 Constitutional: HX per hpi Eyes: Negative for injury, pain, redness, and discharge, cp 22:05 Cardiovascular: Negative for chest pain, edema, palpitations, cp 22:05 Respiratory: Negative for cough, shortness of breath, wheezing, 22:05 Abdomen/GI: Positive for nausea, Negative for abdominal pain, vomiting, diarrhea, constipation, 22:05 Neuro: Negative for altered mental status, dizziness, headache, numbness, speech changes, weakness, 22:05 All other systems are negative, Exam: 22:10 Constitutional: The patient appears in no acute distress, alert, awake, cp non-diaphoretic, non-toxic, well developed, well nourished, 22:10 Head/Face: Normocephalic, atraumatic. cp 22:10 Eyes: Periorbital structures: appear normal, Pupils: equal, round, and reactive to light and accomodation, Extraocular movements: intact throughout, Conjunctiva: normal, no exudate, no injection, Sclera: no appreciated abnormality, Lids and lashes: appear normal, bilaterally, 22:10 ENT: External ear(s): are unremarkable, Nose: is normal, Mouth: Lips: moist, Oral mucosa: pink and intact, moist, Posterior pharynx: Airway: no evidence of obstruction, patent, 22:10 Chest/axilla: Inspection: normal, 22:10 Cardiovascular: Rate: tachycardic, Rhythm: regular, Edema: is not appreciated, JVD: is not appreciated, 22:10 Respiratory: the patient does not display signs of respiratory distress, Respirations: normal, no use of accessory muscles, no retractions, labored breathing, is not present, Breath sounds: are clear throughout, no decreased breath sounds, no stridor, no wheezing, 22:10 Abdomen/GI: Inspection: abdomen appears normal, Palpation: abdomen is soft and non-tender, in all quadrants, 22:10 Neuro: Orientation: to person, place \T\ time. Mentation: is normal, Cerebellar function: is grossly normal, Motor: moves all fours, strength is normal, Sensation: is normal, 22:20 ECG was reviewed by the Attending Physician. cp Vital Signs: 22:00 BP 148 / 104; Pulse 108; Resp 16; Temp 98.3; Pulse Ox 97% ; Weight 77.11 kg; Height 5 jj7 ft. 8 in. ; Pain 0/10; 22:40 BP 131 / 97; Pulse 92; Resp 17; Pulse Ox 97% ; jj7 22:41 BP 129 / 100 RA; Pulse 88; Resp 19; Pulse Ox 97% ; jj7 23:39 BP 132 / 95; Pulse 84; Resp 17; Pulse Ox 97% ; jj7 02/24 00:42 BP 131 / 98; Pulse 88; Resp 17; Pulse Ox 99% ; jj7 00:59 BP 127 / 98; Pulse 88; Resp 17; Temp 98.1; Pulse Ox 100% ; Pain 0/10; jj7 02/23 22:00 Body Mass Index 25.85 (77.11 kg, 172.72 cm) jj7 02/23 22:00 Pain Scale: Adult jj7 00:59 Pain Scale: Adult jj7 MDM: 02/23 21:53 Patient medically screened. 02/24 00:50 Data reviewed: vital signs, nurses notes, lab test result(s), EKG, radiologic studies, cp CT scan, plain films, and as a result, I will discharge patient. 00:50 Differential diagnosis: hypertensive crisis, Malignant HTN, CVA, intracerebral cp hemorrhage. Independent interpretation of the following test(s) in the Emergency Department EKG: See my EKG interpretation above. Counseling: I had a detailed discussion with the patient and/or guardian regarding the historical points, exam findings, and any diagnostic results supporting the discharge/admit diagnosis, lab results, radiology results, to return to the emergency department if symptoms worsen or persist or if there are any questions or concerns that arise at home. Response to treatment: the patient's symptoms have markedly improved after treatment, and as a result, I will discharge patient. 02/23 21:54 Order name: Basic Metabolic Panel; Complete Time: 23:55 02/23 23:55 Interpretation: Reviewed. 02/23 21:54 Order name: CBC with Diff; Complete Time: 23:55 02/23 21:54 Order name: LFT's; Complete Time: 23:55 02/23 23:55 Interpretation: Normal except: IBILI, CALC 0.1; GLOB 4.0; A/G 0.9. 02/23 21:54 Order name: Magnesium; Complete Time: 23:55 02/23 21:54 Order name: Troponin HS; Complete Time: 23:55 02/23 22:27 Order name: UDS; Complete Time: 00:45 02/23 22:27 Order name: Urinalysis w/ reflexes; Complete Time: 00:45 02/24 00:45 Interpretation: Reviewed. 02/23 21:54 Order name: XRAY Chest (1 view); Complete Time: 23:55 02/23 23:56 Interpretation: Report review. 02/23 22:26 Order name: CT Head Brain wo Cont 02/23 21:54 Order name: Cardiac monitoring; Complete Time: 22:26 02/23 21:54 Order name: EKG - Nurse/Tech; Complete Time: 22:17 cp 02/23 21:54 Order name: IV Saline Lock; Complete Time: 22:41 cp 02/23 21:54 Order name: Labs collected and sent; Complete Time: 22:41 cp 02/23 21:54 Order name: O2 Per Protocol; Complete Time: 22:41 cp 02/23 21:54 Order name: O2 Sat Monitoring; Complete Time: 22:41 cp 02/23 21:54 Order name: Blood Pressure Recheck: bilateral upper extremity; Complete Time: 22:44 cp EC/12 22:20 Rate is 87 beats/min. Rhythm is regular. NE interval is normal. QRS interval is normal. cp QT interval is normal. T waves are Inverted in leads III, aVR. Interpreted by me. Reviewed by me. Administered Medications: :44 Drug: NS 0.9% IV 1000 ml IV at 1 bolus Per protocol Route: IV; Rate: 1 bolus; Site: [facility] right antecubital; 02/24 00:20 Follow up: IV Status: Completed infusion j7 Disposition: 02:27 Co-signature as Attending Physician, Eduar Burgos MD I agree with the assessment sp4 and plan of care. I reviewed the patient's care provided by the Advanced Practice Provider and agree with the diagnosis and treatment plan. Disposition Summary: 02/25/24 00:51 Discharge Ordered Notes: Location: Home cp Problem: new cp Symptoms: have improved cp Condition: Stable cp Diagnosis - Elevated blood-pressure reading, without diagnosis of hypertension cp Followup: cp - With: Private Physician - When: 2 - 3 days - Reason: Recheck today's complaints Discharge Instructions: - Discharge Summary Sheet cp - How to Take Your Blood Pressure, Khru-vt-Lujz cp - Aspirin and Your Heart cp - DASH Eating Plan cp - Form - Blood Pressure Record Sheet cp - Form - Excuse from Work, School, or Physical Activity cp Forms: - Medication Reconciliation Form cp - Antibiotic Education cp - Prescription Opioid Use cp - Patient Portal Instructions cp - Leadership Thank You Letter cp Signatures: Dispatcher [employer] EDMS Bacilio Das PA PA cp Johnson, Juwairiyah, RN RN jj7 Potepalov, Sergey, MD MD sp4 Corrections: (The following items were deleted from the chart) 02/23 22: 22:27 URINE DRUG SCREEN+UC.LAB.BRZ ordered. EDMS EDMS 22:27 Urinalysis+U.LAB.BRZ ordered. EDMS EDMS 02/25 00:03 02/23 22:00 The patient has elevated blood pressure and discovered this work, cp cp
[2024-02-25 01:38] VITALS: BP 127/98; TEMP 98.1; O2SAT 100
--- NOTE | 2024-02-26 19:20 | RAD REPORT ---
EXAM DESCRIPTION: CT - Head Brain Wo Cont - 02/25/2024 6:51 am CLINICAL HISTORY: Elevated blood pressure COMPARISON: 08/15/2020 TECHNIQUE: Axial CT of the head obtained from the skull apex to the skull base without contrast. Thi s exam was performed according to our departmental dose-optimization program, which includes automate d exposure control, adjustment of the mA and/or kV according to patient size and/or use of iterative reconstruction technique. FINDINGS: Slightly limited exam due to artifact. No acute intracranial hemorrhage identified. No mass, mass effect, midline shift, or abnormal extra-a xial fluid collection. No CT evidence of acute ischemic change identified, however, MRI is more sen sitive in the assessment of acute ischemia. Ventricular system and sulcal spaces are normal in size and morphology. Basilar cisterns are patent. Visualized orbits and globes show no acute abnormality. No skull fracture identified. 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 IMPRESSION: No acute intracranial abnormality on noncontrast CT. Electronically signed by: Kandy Sin MD 02/24/2024 11:30 PM CDT Due to temporary technical issues with the PACS/Fluency reporting system, reports are being signed by the in house radiologists without review as a courtesy to insure prompt reporting. The interpreting radiologist is fully responsible for the content of the report.
--- NOTE | 2024-02-28 13:01 | EKG ---
Test Date: 2024-02-24 Test Time: 22:14:36 Multimedia Teacher: LUCINA MEASUREMENT RESULTS: Intervals: Rate: 87 AL: 122 QRSD: 96 QT: 352 QTc: 423 Rentz: P: 45 AL: 122 QRS: 30 T: 19 INTERPRETIVE STATEMENTS: Normal sinus rhythm Nonspecific T wave abnormality Abnormal ECG Compared to ECG 11/05/2023 16:09:20 No significant changes Electronically Signed On 02-28-24 12:51:01 CDT by Cali Mosher
== END 2024-02-25 01:04 | disposition home or self-care (01) ==
LOC: ER 21:51
DX: I10 Essential (primary) hypertension (principal); R11.0 Nausea
CPT/HCPCS: 36415; 70450; 71045; 80048; 80076; 80307; 81001; 83735; 84484; 85025; 93005; 96360; 96361; 99285; J7030

== ENCOUNTER 2024-06-15 08:07 | Emergency (ER) | payer SELFPAY ==
--- OUTSIDE RECORDS SUMMARY | 2024-06-15 08:10 | XMS REPORT | Continuity of Care Document ---
Author Name Unknown Address [address] [facility] [place] [address] [facility] [address] [facility] [address] [place] [address] Care Team Providers Care Skimmer Scoop Operator Name Role Phone Pcp-None Primary Care Physician Unavailab Shan De Luna Attending Clinician Unavailable Kameron MULLER Attending Clinician Unavailable Kameron Lino Attending Clinician [phone] KERRY FLORES Attending Clinician Unavailab Kerry Rdz DO Attending Clinician [phone] YANI MENDOZA Attending Clinician Unavaila ble Yani Garza Attending Clinician [phone] Doctor Unassigned, [place] Attending Clinician U ROSIBEL Hyde Attending Clinician Unavailable Lab, Adc Fam Pob I Attending Clinician Unavailab Rosibel Burris Attending Clinician [phone] JERICA HAINES Attending Clinician Unavailab josh Payers Payer Name Policy Type Policy Number Effective Date Expirati on Date Source COVID19 HRSA UNINSURED [id number] 2020 00:00:00 Problems Condition Name Condition Details Condition Category Status Onset Date Resolution Date Last Treatment Date Treating Clinician Comments Source No known active problems No known active problems Disease [facility] Allergies, Adverse Reactions, Alerts Allergy Name Allergy Type Status Severity Reaction(s) Onset Date Inactive Date Treating Clinician Comments Source aspirin DA Active U Unknown 8- 00:00: 00 [facility] carvedil ol DA Active U Unknown 8 00:00: 00 [facility] ASPIRIN DRUG INGREDI Active Other-Cmnt 2020-06 0 00:00: 00 [facility] CARVEDIL OL DRUG INGREDI Active Other-Cmnt 2020-06 00:00: 00 [facility] Aspirin Propensi ty to adverse reaction s Active Other - See comments 2020-06 00:00: 00 "syncope" [facility] Carvedil ol Propensi ty to adverse reaction s Active Other - See comments 2020-06 00:00: 00 [facility] NO KNOWN ALLERGIE S Drug Class Active [facility] Social History Social Habit Start Date Stop Date Quantity Comments Source Exposure to SARS-CoV-2 (event) 2022-09-06 00:00:00 2022-09-16 14:27:00 Not sure [facility] Sex Assigned At 1990 00:00:00 1990 00:00:00 [facility] Smoking Status Start Date Stop Date Source Tobacco smoking consumption unknown [facility] Medications Ordered Medication Name Filled Medication Name Start Date Stop Date Current Medication? Ordering Clinician Indication Dosage Frequency Signature (SIG) Comments Components Source levalbutero l (XOPENEX) nebulizer solution 1.25 mg 09-16 20:30: 00 09-16 19:44 :00 No 1.25mg 1.25 mg, Inhalation , ONCE, 1 dose, On Wed09/16/22 at 1530, Routine [facility] NaCl 0.9% (NS) bolus infusion 1,000 mL 07-30 18:15: 00 07-31 06:14 :00 No 1000mL at 999 mL/hr, 1,000 mL, IV Infusion, ONCE, 1 dose, On Wed07/30/21 at 1215, TERENCE [facility] No known medications 2022-0 2-16 11:19: [address] [facility] Vital Signs Vital Name Observation Time Observation Value Comments S ource Systolic blood pressure 2022-11-19 15:12:00 138 mm[Hg] [facility] Diastolic blood pressure 2022-11-19 15:12:00 100 mm[Hg] [facility] Heart rate 2022-11-19 15:12:00 83 /min [facility] Body temperature 2022-11-19 15:12:00 36.72 Smita [facility] Respiratory rate 2022-11-19 15:12:00 16 /min [facility] Body weight 2022-11-19 15:12:00 76.204 kg [facility] BMI 2022-11-19 15:12:00 25.54 kg/m2 [facility] Oxygen saturation in Arterial blood by Pulse oximetry 2022-11-19 15:12:00 98 /min [facility] Heart rate 2022-09-16 20:01:00 99 /min [facility] Respiratory rate 2022-09-16 20:01:00 18 /min [facility] Oxygen saturation in Arterial blood by Pulse oximetry 2022-09-16 20:01:00 99 /min [facility] Systolic blood pressure 2022-09-16 19:26:00 138 mm[Hg] [facility] Diastolic blood pressure 2022-09-16 19:26:00 90 mm[Hg] [facility] Body temperature 2022-09-16 19:26:00 37.22 Smita [facility] Body height 2022-09-16 19:26:00 172.7 cm [facility] Body weight 2022-09-16 19:26:00 79.379 kg [facility] BMI 2022-09-16 19:26:00 26.61 kg/m2 [facility] Systolic blood pressure 2021-07-30 16:42:00 144 mm[Hg] [facility] Diastolic blood pressure 2021-07-30 16:42:00 98 mm[Hg] [facility] Heart rate 2021-07-30 16:42:00 87 /min [facility] Body temperature 2021-07-30 16:42:00 37.06 Smita [facility] Respiratory rate 2021-07-30 16:42:00 14 /min [facility] Body height 2021-07-30 16:42:00 172.7 cm [facility] Body weight 2021-07-30 16:42:00 69.899 kg [facility] BMI 2021-07-30 16:42:00 23.43 kg/m2 [facility] Oxygen saturation in Arterial blood by Pulse oximetry 2021-07-30 16:42:00 100 /min [facility] Systolic blood pressure 2021-04-10 16:32:00 146 mm[Hg] [facility] Diastolic blood pressure 2021-04-10 16:32:00 99 mm[Hg] [facility] Heart rate 2021-04-10 16:32:00 89 /min [facility] Body temperature 2021-04-10 16:32:00 36.89 Smita [facility] Respiratory rate 2021-04-10 16:32:00 17 /min [facility] Body weight 2021-04-10 16:32:00 68.04 kg [facility] Oxygen saturation in Arterial blood by Pulse oximetry 2021-04-10 16:32:00 100 /min [facility] Procedures Procedure Date / Time Performed Performing Clinicia n Source ASSIGNMENT OF BENEFITS 2022-11-19 15:27:20 Docto r Unassigned, [place] [facility] CONSENT/REFUSAL FOR DIAGNOSIS AND TREATMENT 2022-11-19 15:04:02 Doctor Unassigned, [place] [facility] NOTICE OF PRIVACY PRACTICES 2022-09-16 19:21:06 Doctor Unassigned, [place] [facility] CONSENT/REFUSAL FOR DIAGNOSIS AND TREATMENT 2022-09-16 19:19:49 Doctor Unassigned, [place] [facility] NOTICE OF PRIVACY PRACTICES 2021-07-30 16:41:12 Doctor Unassigned, [place] [facility] CONSENT/REFUSAL FOR DIAGNOSIS AND TREATMENT 2021-07-30 16:37:50 Doctor Unassigned, [place] [facility] CONSENT/REFUSAL FOR DIAGNOSIS AND TREATMENT 2021-04-10 16:29:21 Doctor Unassigned, [place] [facility] Encounters Start Date/Time End Date/Time Encounter Type Admission Type Attending [facility] Facility Care Department Encounter ID Source 2023-01-31 17:56:41 Emergency [facility] [id number] [facility] ent 2023-01-31 17:15:00 2023-01-31 22:25:00 Emergency Emergency TeddyRichid [facility] [id number] [facility] 2023-01-31 17:15:00 2023-01-31 22:25:00 Emergency Emergency Teddy, Shan [facility] [id number] [facility] 2022-11-19 10:14:00 2022-11-19 11:35:00 Emergency X Kameron MULLER [facility] ERT [id number] [facility] 2022-11-19 10:14:00 2022-11-19 11:35:[address] [facility] [id number] [facility] 2022-09-16 14:29:00 2022-09-16 15:51:00 Emergency X KERRY FLORES [facility] ERT [id number] [facility] 2022-09-16 14:29:00 2022-09-16 15:51:[address] [facility] [id number] [id number] [id number] [facility] 2021-07-30 10:45:00 2021-07-30 11:33:00 Emergency X YANI MENDOZA [facility] ERT [id number] [facility] 2021-07-30 10:45:00 2021-07-30 11:33:[address] [facility] [id number] [id number] [facility] 2021-07-30 00:00:00 2021-07-30 00:00:00 Orders Only Doctor Unassigned, [place] [facility] [id number] [id number] [id number] [facility] 2021-04-10 11:33:00 2021-04-10 12:08:00 Emergency X [facility] ERT [id number] [facility] 2021-04-10 11:33:00 2021-04-10 12:08:00 Emergency [facility] [id number] 350.1.13.10 4.2.7.2.[id number] [facility] 2020-08-06 09:40:00 2020-08-06 09:40:00 Outpatient R ROSIBEL GUPTA [facility] [id number] [facility] 2020-08-06 09:08:02 2020-08-06 09:28:02 Laboratory Only Lab, [facility] [address] 1.840.114 350.1.13.10 4.2.7.2.686 [id number] 2020-08-06 09:08:02 2020-08-06 09:28:02 [facility] [address] [id number] 350.1.13.10 4.2.7.2.[id number] [facility] 2020-07-19 15:40:00 2020-07-19 15:11:52 Outpatient R JERICA HAINES [facility] [id number] [facility] Results Test Description Test Time Test Comments Results Result Co mments Source Complete Blood Count Auto [id number] 19:14:00* Test Item Value Reference Range Interpretation [...] code = NRBCP) 0 % Prothrombin Time [id number] 18:25:00* Test Item Value Reference Range Interpretation [...] 3.5 Mechanical Heart, Intracardiac Thrombosis. Partial Thromboplastin [id number] 18:25:00* Test Item Value Reference Range Interpretation Comme nts Partial Thromboplastin Time (test code = PTT) 28.8 Seconds 23.9-32.8 N Comprehensive Metabolic [id number] 18:25:00* Test Item Value Reference Range Interpretation [...] a race coefficient. Additional information canbe found at:[email or web address].pdf ([email or web address]) [Automated message] The system [...] = ALP) 141 U/L 46-116 H Creatine [id number] 18:25:00* Test Item Value Reference Range Interpretation Comme nts Creatine Kinase (test code = CK) 122 U/L 46-171 N Troponin I High [id number] 18:25:00* Test Item Value Reference Range Interpretation Comme nts Troponin I High Sensitivity (test code = TROPHS) < 3 ng/L 0-45 N [id number] 18:25:00* Test Item Value Reference Range Interpretation Comme nts Lipase (test code = LIP) 33 U/L 12-53 N EKG ED Electrocardiogram. [facility] [address] [place], [place] [id number] Patient Name: Brenden De Leon Medical Record#: [id number] Address: [address] [place] [address] City/State/Zip: [place] [address]: Shan Espinal DO Insurance: Self Pay /Age/Sex: 1990//M Admit/Reg Date: 01/31/[address]: Zunilda Baer NP Location: [facility]/ PCP: Pcp-Md MIKE Acevedo Date of Service: 01/31/23 Order (s): EKG ED Electrocardiogram CPT Code: 41176 Report Number: [id number] Reason for Exam: dizziness Sinus tachycardia Lead(s) unsuitable for analysis: V5 Short MO interval Diffuse ST-T abnormality is nonspecific Summary: Borderline ECG Dictated By: Alberto Escalera MD 01/31/23 1733 Signed By: Alberto Escalera MD 02/11/23 1559 TD/TT: 01/31/23 173 Tech: MWH02 cc: [id number]; PCPNO* Zunilda Baer NP; Pcp-Md MIKE Acevedo
[2024-06-15 08:38] LABS: Absolute Eosinophils 0.1 K/uL (0-0.5); Absolute Lymphocytes (CBC) 1.4 K/uL (0.7-4.9); Absolute Monocytes 0.5 K/uL (0.1-1.3); Absolute Neutrophil 3.5 K/uL (1.8-8.0); Basophils % 0.5 % (0-1.3); Eosinophils % 2.6 % (0-4.4); Hematocrit 45.8 % (39.6-49.0); Hemoglobin 15.6 g/dL (13.6-17.9); Lymphocytes % 25.1 % (15.3-44.8); MCH 30.7 pg (27.0-35.0); MCV 90.3 fL (80-100); MPV 8.1 fL (7.6-11.3); Neutrophils % 62.8 % (41.7-73.7); Nucleated Red Blood Cells % 0.1 % (0-0); Platelets 228 thou/uL (152-406); RBC Red Blood Cell Count 5.07 M/uL (4.33-5.43)
[2024-06-15 08:55] LABS: Albumin 3.8 g/dL (3.4-5.0); Anion Gap 6.7 mEq/L (5.0-15.0); Bilirubin Total 0.5 mg/dL (0.2-1.0); Globulin 3.9 g/dL (2.3-3.5); Potassium 3.7 mEq/L (3.5-5.1); Protein, Total 7.7 g/dL (6.4-8.2)
--- NOTE | 2024-06-15 08:58 | RAD REPORT ---
EXAMINATION: CT ABDOMEN AND PELVIS WITHOUT CONTRAST CLINICAL INDICATION: Abdominal pain TECHNIQUE: CT abdomen and pelvis was performed, as per department protocol. IV contrast and oral was not administered.Axial, sagittal and coronal reconstructions were obtained. One or more of the following dose reduction techniques were used: Automated exposure control, adjustment of the mA and/o r kV according to the patient size, and/or iterative reconstruction. Unless otherwise specified, incidental findings do not require dedicated imaging follow-up. [id number]. COMPARISON: February 2024 FINDINGS: The lack of intravenous and oral contrast limits evaluation of solid organs, vessels and bowel. The liver, spleen, pancreas, adrenals and kidneys appear grossly normal No evidence of diverticulitis Prominent fat within the wall of the ileum. IMPRESSION: Prominent fat within the wall of the ileum may indicate chronic inflammation.
--- NOTE | 2024-06-15 09:22 | EDPHYS ---
Physician Documentation [facility] Name: Brenden Washington Age: 34 yrs Sex: Male : 1990 Arrival Date: 06/15/2024 Time: 08:07 Bed 4 Private MD: ED Physician Jona Martins HPI: 06/15 08:38 This 34 yrs old Male presents to ER via Ambulatory with complaints of ec2 Abdominal Pain. 08:38 Patient arrives today for evaluation of abdominal pain. Patient reports that he has a ec2 history of Crohn's colitis, reports that has been having some blood in his stool. Patient reports some abdominal discomfort, states he had a bout of emesis that was blood-tinged.. Historical: - Allergies: 08:15 Aspirin (Anaphylaxis); iw 08:15 Coreg; iw - PMHx: 08:15 Asthma; Crohn's Disease; Hypertension; iw - PSHx: 08:15 None; iw - Immunization history:: Adult Immunizations not up to date. - Infectious Disease History:: Denies. - Social history:: Smoking status: Patient/guardian denies using tobacco, the patient reports quitting approximately 1 years ago. ROS: 08:39 Constitutional: as per hpi ec2 Exam: 08:39 Constitutional: GEN: NAD Head: atraumatic Eyes: EOMI Ears: External ears are ec2 normal. CV: regular rate LUNGS: no respiratory distress ABD: non-distended, soft, not guarding, generally tender. SKIN: no evidence of rashes MSK: no evidence of trauma Vital Signs: 08:13 BP 150 / 102; Pulse 92; Resp 16; Temp 98.2; Pulse Ox 97% on R/A; Weight 83.91 kg; iw Height 5 ft. 9 in. ; Pain 7/10; 09:50 BP 134 / 94; Pulse 86; Resp 17; Temp 97.9; Pulse Ox 100% ; ap3 08:13 Body Mass Index 27.32 (83.91 kg, 175.26 cm) iw 08:13 Pain Scale: Adult iw MDM: 08:12 Medical Screening Exam initiated ec2 08:39 Data reviewed: vital signs, nurses notes. ED course: Patient arrives today for ec2 evaluation of blood-tinged emesis as well as blood in stool. Examination yields well-appearing nontoxic individuals otherwise hemodynamically stable and in no acute distress. Will obtain lab work, CT imaging. Suspect patient's Crohn's, possible gastroenteritis.. 09:21 ED course: CT imaging shows some chronic inflammation, will have the patient follow-up ec2 with his GI doctor. States he has an appointment in 1.5 weeks. Patient discharged and return precautions given.. 06/15 08:16 Order name: CBC with Diff; Complete Time: 08:48 ec2 06/15 08:16 Order name: CMP; Complete Time: 08:57 ec2 06/15 08:16 Order name: Lipase; Complete Time: 08:57 ec2 06/15 08:16 Order name: Type And Screen; Complete Time: 09:21 ec2 06/15 08:46 Order name: Abdomen ; Complete Time: 09:03 EDMS 06/15 08:16 Order name: IV Saline Lock; Complete Time: 08:34 ec2 06/15 08:16 Order name: Labs collected and sent; Complete Time: 08:34 ec2 Administered Medications: 08:22 CANCELLED (Physician Discretion): morphineor iv 4 mg IVP once over 4 mins ec2 08:34 Not Given (Patient Refused): ondansetron 4 mg IVP once; over 2 minutes ap3 08:35 Not Given (Patient Refused): ns 0.9% 1000 ml IV at 1 bolus Per protocol; to be given as ap3 a bolus over 60 minutes 08:35 Not Given (Patient Refused): [id number] mg IVP once ap3 Disposition Summary: 06/15/24 09:21 Discharge Ordered Notes: Location: Home ec2 Condition: Stable ec2 Diagnosis - Rectal Bleeding, Crohn's Flare ec2 Followup: ec2 - With: Private Physician - When: - Reason: Re-evaluation by your physician Discharge Instructions: - Discharge Summary Sheet ec2 - Crohn's Disease ec2 Forms: - Work release form ap3 - Medication Reconciliation Form ec2 - Antibiotic Education ec2 - Prescription Opioid Use ec2 - Patient Portal Instructions ec2 - Leadership Thank You Letter ec2 Signatures: Dispatcher [employer] Andreea De Leon RN RN iw Jona Martins MD MD ec2 Marlen Mckeon RN ap3 Corrections: (The following items were deleted from the chart) 08:16 08:16 CBC+H.LAB.BRZ ordered. EDMS EDMS 08:16 08:16 COMPREHENSIVE METABOLIC PANEL+C.LAB.BRZ ordered. EDMS EDMS 08:16 08:16 LIPASE+C.LAB.BRZ ordered. EDMS EDMS 08:16 08:16 TYPE AND SCREEN+BB.LAB.BRZ ordered. EDMS EDMS 08:16 08:16 Abdomen Pelvis W Con+CT.RAD.BRZ ordered. EDMS EDMS 08:22 08:16 morphine IVP or IV 4 mg IVP once over 4 mins ordered. ec2 ec2
--- NOTE | 2024-06-15 09:22 | ER ---
Nurse's Notes [facility] Name: Brenden Washington Age: 34 yrs Sex: Male : 1990 Arrival Date: 06/15/2024 Time: 08:07 Bed 4 Private MD: Diagnosis: Rectal Bleeding, Crohn's Flare Presentation: 06/15 08:13 Chief complaint: Patient states: feels like he is having a Crohns flare up , he is iw vomiting and there is blood in it and there's blood in his stool X 2 days, has chronic abd pain. Coronavirus screen: At this time, the client does not indicate any symptoms associated with coronavirus-19. Ebola Screen: No symptoms or risks identified at this time. Initial Sepsis Screen: Does the patient meet any 2 criteria? No. Patient's initial sepsis screen is negative. Does the patient have a suspected source of infection? No. Patient's initial sepsis screen is negative. Risk Assessment: Do you want to hurt yourself or someone else? Patient reports no desire to harm self or others. 08:13 Method Of Arrival: Ambulatory iw 08:13 Acuity: ADI 3 iw 08:13 Onset of symptoms was June 13, 2024. iw Historical: - Allergies: 08:15 Aspirin (Anaphylaxis); iw 08:15 Coreg; iw - PMHx: 08:15 Asthma; Crohn's Disease; Hypertension; iw - PSHx: 08:15 None; iw - Immunization history:: Adult Immunizations not up to date. - Infectious Disease History:: Denies. - Social history:: Smoking status: Patient/guardian denies using tobacco, the patient reports quitting approximately 1 years ago. Screenin:33 [facility] ED Fall Risk Assessment (Adult) History of falling in the last 3 months, ap3 including since admission No falls in past 3 months (0 pts) Confusion or Disorientation No (0 pts) Intoxicated or Sedated No (0 pts) Impaired Gait No (0 pts) Mobility Assist Device Used No (0 pt) Altered Elimination No (0 pt) Score/Fall Risk Level 0 - 2 = Low Risk Oriented to surroundings, Maintained a safe environment, Educated pt \T\ family on fall prevention, incl call for assistance when getting out of bed, Assessed \T\ reinforced patient's understanding of fall precautions, Hourly rounding (assess needs \T\ fall precautionary measures) done, Used ambulatory aids as needed (educated on \T\ assisted with), Used gait belt as appropriate. Abuse screen: Denies threats or abuse. Nutritional screening: No deficits noted. Tuberculosis screening: No symptoms or risk factors identified. Assessment: 08:33 General: Appears in no apparent distress. Behavior is calm, cooperative, appropriate ap3 for age. Pain: Complains of pain in abdomen Quality of pain is described as crampy. Neuro: Level of Consciousness is awake, alert, obeys commands, Oriented to person, place, time, situation, Appropriate for age. Cardiovascular: Patient's skin is warm and dry. Respiratory: Airway is patent Respiratory effort is even, unlabored, Respiratory pattern is regular, symmetrical. GI: Reports bloody stool. 09:50 GI: Bowel sounds Abd is soft. ap3 Vital Signs: 08:13 BP 150 / 102; Pulse 92; Resp 16; Temp 98.2; Pulse Ox 97% on R/A; Weight 83.91 kg; iw Height 5 ft. 9 in. ; Pain 7/10; 09:50 BP 134 / 94; Pulse 86; Resp 17; Temp 97.9; Pulse Ox 100% ; ap3 08:13 Body Mass Index 27.32 (83.91 kg, 175.26 cm) iw 08:13 Pain Scale: Adult iw ED Course: 08:09 Patient arrived in ED. mr 08:10 Jona Martins MD is Attending Physician. ec2 08:15 Triage completed. iw 08:16 Arm band placed on. iw 08:19 Marlen Mckeon, BETO is Primary Nurse. ap3 08:33 Inserted saline lock: 20 gauge in left antecubital area, using aseptic technique. Blood ap3 collected. Flushed with 10 mL NS. 08:34 Patient has correct armband on for positive identification. Bed in low position. Call ap3 light in reach. Side rails up X 1. Provided Education on: fall risk education. Pulse ox on. NIBP on. 08:35 Type And Screen Sent. ap3 08:35 CBC with Diff Sent. ap3 08:35 CMP Sent. ap3 08:35 Lipase Sent. ap3 08:46 Abdomen In Process Unspecified. EDMS 09:50 No provider procedures requiring assistance completed. IV discontinued, intact, ap3 bleeding controlled, No redness/swelling at site. Pressure dressing applied. Administered Medications: 08:22 CANCELLED (Physician Discretion): morphineor iv 4 mg IVP once over 4 mins ec2 08:34 Not Given (Patient Refused): ondansetron 4 mg IVP once; over 2 minutes ap3 08:35 Not Given (Patient Refused): ns 0.9% 1000 ml IV at 1 bolus Per protocol; to be given as ap3 a bolus over 60 minutes 08:35 Not Given (Patient Refused): [id number] mg IVP once ap3 Medication: 08:34 VIS not applicable for this client. ap3 Outcome: 09:21 Discharge ordered by . ec2 09:50 Discharged to home ambulatory, ap3 09:50 Condition: good 09:50 Discharge instructions given to patient, family, Instructed on discharge instructions, follow up and referral plans. Demonstrated understanding of instructions, follow-up care, 09:52 Patient left the ED. ap3 Signatures: Dispatcher [employer] EDIL Cyndy Del Cid, Reg Reg mr Andreea Jean-Baptiste RN RN iw Marlen Mckeon RN RN ap3 Jona Martins MD MD ec2 Corrections: (The following items were deleted from the chart) 08:15 08:13 BP 150 / 102; Pulse 92bpm; Resp 16bpm; Pulse Ox 97% RA; Temp 98.2F; 83.91 kg; iw Height 5 ft. 9 in.; BMI: 27.3; iw
[2024-06-15 10:03] VITALS: BP 134/94; TEMP 97.9; O2SAT 100
== END 2024-06-15 09:52 | disposition home or self-care (01) ==
LOC: ER 08:07
DX: K50.90 Crohn's disease, unspecified, without complications (principal); K62.5 Hemorrhage of anus and rectum; I10 Essential (primary) hypertension; J45.909 Unspecified asthma, uncomplicated; Z87.891 Personal history of nicotine dependence; Z88.8 Allergy status to other drugs, medicaments and biological substances
CPT/HCPCS: 36415; 74176; 80053; 83690; 85025; 86850; 86900; 86901; 99284

== ENCOUNTER 2024-07-14 10:52 | Emergency (ER) | payer SELFPAY ==
--- OUTSIDE RECORDS SUMMARY | 2024-07-14 10:55 | XMS REPORT | Continuity of Care Document ---
Author Name Unknown Address [address] [place] [address] [facility] Address [address] [facility] [address] [place] [address] Care Team Providers Care Cloth Calender Name Role Phone RICHIE CARRASCO Primary Care Physician Unavailab Shan De Luna Attending Clinician Unavailable Kameron MULLER Attending Clinician Unavailable Kameron Lino Attending Clinician [phone] KERRY FLORES Attending Clinician Unavailab Kerry Rdz DO Attending Clinician [phone] YANI MENDOZA Attending Clinician Unavaila ble Yani Garza Attending Clinician [phone] Doctor Unassigned, [place] Attending Clinician U ROSIBEL Hyde Attending Clinician Unavailable Lab, Adc Fam Pob I Attending Clinician Unavailab Rosibel Burris Attending Clinician [phone] JERICA HAINES Attending Clinician Unavailab josh Payers Payer Name Policy Type Policy Number Effective Date Expirati on Date Source COVID19 HRSA UNINSURED [id number] 2020 00:00:00 Problems Condition Name Condition Details Condition Category Status Onset Date Resolution Date Last Treatment Date Treating Clinician Comments Source No known active problems No known active problems Disease [facility] Allergies, Adverse Reactions, Alerts Allergy Name Allergy Type Status Severity Reaction(s) Onset Date Inactive Date Treating Clinician Comments Source aspirin DA Active U Unknown 01-31 00:00: 00 [facility] carvedil ol DA Active U Unknown 8 00:00: 00 [facility] ASPIRIN DRUG INGREDI Active Other-Cmnt 2020-06 0 00:00: 00 [facility] CARVEDIL OL DRUG INGREDI Active Other-Cmnt 2020-06 00:00: 00 [facility] Aspirin Propensi ty to adverse reaction s Active Other - See comments 2020-06 00:00: 00 "syncope" [facility] Carvedil ol Propensi ty to adverse reaction s Active Other - See comments 2020-06 00:00: 00 [facility] NO KNOWN ALLERGIE S Drug Class Active [facility] Social History Social Habit Start Date Stop Date Quantity Comments Source Exposure to SARS-CoV-2 (event) 2022-09-06 00:00:00 2022-09-16 14:27:00 Not sure [facility] Sex Assigned At 1990 00:00:00 1990 00:00:00 [facility] Smoking Status Start Date Stop Date Source Tobacco smoking consumption unknown [facility] Medications Ordered Medication Name Filled Medication Name Start Date Stop Date Current Medication? Ordering Clinician Indication Dosage Frequency Signature (SIG) Comments Components Source levalbutero l (XOPENEX) nebulizer solution 1.25 mg 09-16 20:30: 00 09-16 19:44 :00 No 1.25mg 1.25 mg, Inhalation , ONCE, 1 dose, On Wed09/16/22 at 1530, Routine [facility] NaCl 0.9% (NS) bolus infusion 1,000 mL 07-30 18:15: 00 07-31 06:14 :00 No 1000mL at 999 mL/hr, 1,000 mL, IV Infusion, ONCE, 1 dose, On Wed07/30/21 at 1215, [place] [facility] No known medications 2022-0 2-16 11:19: 13 No [facility] Vital Signs Vital Name Observation Time Observation Value Comments S ource Systolic blood pressure 2022-11-19 15:12:00 138 mm[Hg] [facility] Diastolic blood pressure 2022-11-19 15:12:00 100 mm[Hg] [facility] Heart rate 2022-11-19 15:12:00 83 /min [facility] Body temperature 2022-11-19 15:12:00 36.72 Smita [facility] Respiratory rate 2022-11-19 15:12:00 16 /min [facility] Body weight 2022-11-19 15:12:00 76.204 kg [facility] BMI 2022-11-19 15:12:00 25.54 kg/m2 [facility] Oxygen saturation in Arterial blood by Pulse oximetry 2022-11-19 15:12:00 98 /min [facility] Heart rate 2022-09-16 20:01:00 99 /min [facility] Respiratory rate 2022-09-16 20:01:00 18 /min [facility] Oxygen saturation in Arterial blood by Pulse oximetry 2022-09-16 20:01:00 99 /min [facility] Systolic blood pressure 2022-09-16 19:26:00 138 mm[Hg] [facility] Diastolic blood pressure 2022-09-16 19:26:00 90 mm[Hg] [facility] Body temperature 2022-09-16 19:26:00 37.22 Smita [facility] Body height 2022-09-16 19:26:00 172.7 cm [facility] Body weight 2022-09-16 19:26:00 79.379 kg [facility] BMI 2022-09-16 19:26:00 26.61 kg/m2 [facility] Systolic blood pressure 2021-07-30 16:42:00 144 mm[Hg] [facility] Diastolic blood pressure 2021-07-30 16:42:00 98 mm[Hg] [facility] Heart rate 2021-07-30 16:42:00 87 /min [facility] Body temperature 2021-07-30 16:42:00 37.06 Smita [facility] Respiratory rate 2021-07-30 16:42:00 14 /min [facility] Body height 2021-07-30 16:42:00 172.7 cm [facility] Body weight 2021-07-30 16:42:00 69.899 kg [facility] BMI 2021-07-30 16:42:00 23.43 kg/m2 [facility] Oxygen saturation in Arterial blood by Pulse oximetry 2021-07-30 16:42:00 100 /min [facility] Systolic blood pressure 2021-04-10 16:32:00 146 mm[Hg] [facility] Diastolic blood pressure 2021-04-10 16:32:00 99 mm[Hg] [facility] Heart rate 2021-04-10 16:32:00 89 /min [facility] Body temperature 2021-04-10 16:32:00 36.89 Smita [facility] Respiratory rate 2021-04-10 16:32:00 17 /min [facility] Body weight 2021-04-10 16:32:00 68.04 kg [facility] Oxygen saturation in Arterial blood by Pulse oximetry 2021-04-10 16:32:00 100 /min [facility] Procedures Procedure Date / Time Performed Performing Clinicia n Source ASSIGNMENT OF BENEFITS 2022-11-19 15:27:20 Docto r Unassigned, [place] [facility] CONSENT/REFUSAL FOR DIAGNOSIS AND TREATMENT 2022-11-19 15:04:02 Doctor Unassigned, [place] [facility] NOTICE OF PRIVACY PRACTICES 2022-09-16 19:21:06 Doctor Unassigned, [place] [facility] CONSENT/REFUSAL FOR DIAGNOSIS AND TREATMENT 2022-09-16 19:19:49 Doctor Unassigned, [place] [facility] NOTICE OF PRIVACY PRACTICES 2021-07-30 16:41:12 Doctor Unassigned, [place] [facility] CONSENT/REFUSAL FOR DIAGNOSIS AND TREATMENT 2021-07-30 16:37:50 Doctor Unassigned, [place] [facility] CONSENT/REFUSAL FOR DIAGNOSIS AND TREATMENT 2021-04-10 16:29:21 Doctor Unassigned, [place] [facility] Encounters Start Date/Time End Date/Time Encounter Type Admission Type Attending [facility] Care Department Encounter ID Source 2023-01-31 17:56:41 Emergency HFD HFD [id number] [facility] [place] 2023-01-31 17:15:00 2023-01-31 22:25:00 Emergency Emergency Teddy Shan [facility] [id number] [facility] 2023-01-31 17:15:00 2023-01-31 22:25:00 Emergency Emergency Teddy, Shan [facility] [id number] [facility] 2022-11-19 10:14:00 2022-11-19 11:35:00 Emergency X Kameron MULLER [facility] [id number] [facility] 2022-11-19 10:14:00 2022-11-19 11:35:00 Emergency Kameron Muller [facility] [id number] [id number] [id number] [id number] [facility] 2022-09-16 14:29:00 2022-09-16 15:51:00 Emergency X KERRY FLORES [facility] E[facility] [id number] [facility] 2022-09-16 14:29:00 2022-09-16 15:51:00 Emergency Kerry Flores [facility] [id number] 350.1.13.10 [id number] [id number] [facility] 2021-07-30 10:45:00 2021-07-30 11:33:00 Emergency X YANI MENDOZA [facility] [id number] [facility] 2021-07-30 10:45:00 2021-07-30 11:33:00 Emergency Yani Mendoza F [facility] [id number] [id number] [id number] [id number] [facility] 2021-07-30 00:00:00 2021-07-30 00:00:00 Orders Only Doctor Unassigned, [place] [facility] [id number] 350.1.13.10 [id number] [id number] [facility] 2021-04-10 11:33:00 2021-04-10 12:08:00 Emergency X RUST ERT [id number] [facility] 2021-04-10 11:33:00 2021-04-10 12:08:00 Emergency [facility] [id number] 350.1.13.10 4.2.7.2.686 [id number] [facility] 2020-08-06 09:40:00 2020-08-06 09:40:00 Outpatient R ROSIBEL GUPTA [facility] [id number] [facility] 2020-08-06 09:08:02 2020-08-06 09:28:02 Laboratory Only Lab, [facility] [address] 1.0.114 350.1.13.10 4.2.7.2.686 [id number] 2020-08-06 09:08:02 2020-08-06 09:28:02 [facility] [address] [id number] 350.1.13.10 4.2.7.2.686 [id number] [facility] 2020-07-19 15:40:00 2020-07-19 15:11:52 Outpatient R JERICA HAINES [facility] [id number] [facility] Results Test Description Test Time Test Comments Results Result Co mments Source Complete Blood Count Auto [id number] 19:14:00* Test Item Value Reference Range Interpretation [...] code = NRBCP) 0 % Prothrombin Time [id number] 18:25:00* Test Item Value Reference Range Interpretation [...] 3.5 Mechanical Heart, Intracardiac Thrombosis. Partial Thromboplastin [id number] 18:25:00* Test Item Value Reference Range Interpretation Comme nts Partial Thromboplastin Time (test code = PTT) 28.8 Seconds 23.9-32.8 N Comprehensive Metabolic [id number] 18:25:00* Test Item Value Reference Range Interpretation [...] a race coefficient. Additional information canbe found at:[email or web address] 5.[email or web address] ([email or web address]) [Automated message] The system [...] = ALP) 141 U/L 46-116 H Creatine [id number] 18:25:00* Test Item Value Reference Range Interpretation Comme nts Creatine Kinase (test code = CK) 122 U/L 46-171 N Troponin I High [id number] 18:25:00* Test Item Value Reference Range Interpretation Comme nts Troponin I High Sensitivity (test code = TROPHS) < 3 ng/L 0-45 N [id number] 18:25:00* Test Item Value Reference Range Interpretation Comme nts Lipase (test code = LIP) 33 U/L 12-53 N EKG ED Electrocardiogram. [facility] [address] [place], [place] [id number] Patient Name: Brenden De Leon Medical Record#: [id number] Address: [address] [place] [address] City/State/Zip: [place] [address]: Shan Espinal DO Insurance: Self Pay /Age/Sex: 1990//M Admit/Reg Date: 01/31/[address]: Zunilda Baer NP Location: [facility]/ PCP: Pcp-Md MIKE Acevedo Date of Service: 01/31/23 Order (s): EKG ED Electrocardiogram CPT Code: 30736 Report Number: [id number] Reason for Exam: dizziness Sinus tachycardia Tri d(s) unsuitable for analysis: V5 Short VA interval Diffuse ST-T abnormality is nonspecific Summary:Borderline ECG Dictated By: Alberto Escalera MD 01/31/23 173 Signed By: Alberto Escalera MD 02/11/23 1559 TD/TT: 01/31/231732 Tech: MWH02 cc: [id number]; PCPNO* Zunilda Baer NP; Pcp-Md MIKE Acevedo
[2024-07-14] MEDS ORDERED: ONDANSETRON 4 MG/2 ML VIAL ONE (11:49)
[2024-07-14] MEDS ORDERED: NA CHLORIDE 0.9% 1,000 ML ONE (11:50)
[2024-07-14] MEDS ORDERED: MORPHINE 4 MG/ML SYR ONE (11:50)
[2024-07-14 12:06] LABS: Absolute Eosinophils 0.1 K/uL (0-0.5); Absolute Lymphocytes (CBC) 1.2 K/uL (0.7-4.9); Absolute Monocytes 0.5 K/uL (0.1-1.3); Absolute Neutrophil 6.3 K/uL (1.8-8.0); Basophils % 0.3 % (0-1.3); Eosinophils % 1.2 % (0-4.4); Hematocrit 43.2 % (39.6-49.0); Hemoglobin 15.4 g/dL (13.6-17.9); Lymphocytes % 14.4 % (15.3-44.8); MCH 31.3 pg (27.0-35.0); MCHC 35.6 g/dL (32.0-36.0); MCV 88.1 fL (80-100); MPV 8.3 fL (7.6-11.3); Monocytes % 6.5 % (3.3-12.3); Neutrophils % 77.6 % (41.7-73.7); Platelets 216 thou/uL (152-406); Red Cell Distribution Width 12.9 % (12.1-15.2)
--- NOTE | 2024-07-14 12:09 | RAD REPORT ---
EXAMINATION: CT ABDOMEN AND PELVIS WITHOUT CONTRAST CLINICAL INDICATION: Abdominal pain TECHNIQUE: CT abdomen and pelvis was performed, as per department protocol. IV contrast and oral was not administered.Axial, sagittal and coronal reconstructions were obtained. One or more of the following dose reduction techniques were used: Automated exposure control, adjustment of the mA and/o r kV according to the patient size, and/or iterative reconstruction. Unless otherwise specified, incidental findings do not require dedicated imaging follow-up. [id number]. COMPARISON: June 15, 2024 FINDINGS: The lack of intravenous and oral contrast limits evaluation of solid organs, vessels and bowel. The liver, spleen, pancreas, adrenals and kidneys appear grossly normal No evidence of diverticulitis Normal appendix. Prominent fat within the wall of the ileum IMPRESSION: Prominent fat within the wall of the ileum may indicate chronic inflammation
[2024-07-14 12:17] LABS: Albumin/Globulin Ratio 1.1 (1.1-1.8); Anion Gap 5.6 mEq/L (5.0-15.0); Bilirubin Total 0.4 mg/dL (0.2-1.0); Globulin 3.8 g/dL (2.3-3.5); Potassium 3.6 mEq/L (3.5-5.1); Protein, Total 7.8 g/dL (6.4-8.2)
--- NOTE | 2024-07-14 12:32 | EDPHYS ---
Physician Documentation [facility] Name: Brenden Washington Age: 34 yrs Sex: Male : 1990 Arrival Date: 07/14/2024 Time: 10:52 Bed 12 Private MD: ED Physician Mark Walker HPI: 07/14 12:27 This 34 yrs old Male presents to ER via Ambulatory with complaints of sp3 Abdominal Pain. 12:27 34-year-old male with history of Crohn's disease, hypertension presents to the ED with sp3 chief complaint diffuse abdominal pain and blood mixed with stool for the last 48 hours. He states he has had the symptoms before. He denies any fever, vomiting, syncope, chest pain, shortness of breath, bleeding anywhere else, or any other signs or symptoms on ROS at this time. He currently receives IV steroid infusions but is on no other medication.. Historical: - Allergies: 11:12 Aspirin (Anaphylaxis); hb 11:12 Coreg; hb - PMHx: 11:12 Asthma; Crohn's Disease; Hypertension; hb - Immunization history:: Adult Immunizations up to date. - Infectious Disease History:: Denies. - Social history:: Smoking status: Patient denies any tobacco usage or history of. ROS: 12:28 Constitutional: Negative for fever, chills, and weight loss, Eyes: Negative for injury, sp3 pain, redness, and discharge, ENT: Negative for injury, pain, and discharge, Neck: Negative for injury, pain, and swelling, Cardiovascular: Negative for chest pain, palpitations, and edema, Respiratory: Negative for shortness of breath, cough, wheezing, and pleuritic chest pain, Back: Negative for injury and pain, MS/Extremity: Negative for injury and deformity, Skin: Negative for injury, rash, and discoloration, Neuro: Negative for headache, weakness, numbness, tingling, and seizure, Psych: Negative for depression, anxiety, suicide ideation, homicidal ideation, and hallucinations, Allergy/Immunology: Negative for hives, rash, and allergies, Endocrine: Negative for neck swelling, polydipsia, polyuria, polyphagia, and marked weight changes, Hematologic/Lymphatic: Negative for swollen nodes, abnormal bleeding, and unusual bruising, 12:28 All other systems are negative, Exam: 12:28 Constitutional: This is a well developed, well nourished patient who is awake, alert, sp3 and in no acute distress. Head/Face: Normocephalic, atraumatic. Eyes: Pupils equal round and reactive to light, extra-ocular motions intact. Lids and lashes normal. Conjunctiva and sclera are non-icteric and not injected. Cornea within normal limits. Periorbital areas with no swelling, redness, or edema. Neck: Trachea midline, no thyromegaly or masses palpated, and no cervical lymphadenopathy. Supple, full range of motion without nuchal rigidity, or vertebral point tenderness. No Meningismus. Chest/axilla: Normal chest wall appearance and motion. Nontender with no deformity. No lesions are appreciated. Cardiovascular: Regular rate and rhythm with a normal S1 and S2. No gallops, murmurs, or rubs. Normal PMI, no JVD. No pulse deficits. Respiratory: Lungs have equal breath sounds bilaterally, clear to auscultation and percussion. No rales, rhonchi or wheezes noted. No increased work of breathing, no retractions or nasal flaring. Back: No spinal tenderness. No costovertebral tenderness. Full range of motion. Skin: Warm, dry with normal turgor. Normal color with no rashes, no lesions, and no evidence of cellulitis. MS/ Extremity: Pulses equal, no cyanosis. Neurovascular intact. Full, normal range of motion. Neuro: Awake and alert, GCS 15, oriented to person, place, time, and situation. Cranial nerves II-XII grossly intact. Motor strength 5/5 in all extremities. Sensory grossly intact. Cerebellar exam normal. Normal gait. Psych: Awake, alert, with orientation to person, place and time. Behavior, mood, and affect are within normal limits. 12:28 Abdomen/GI: Mild diffuse pain to palpation without peritoneal signs, rebound or guarding. Vital signs are normal., Vital Signs: 11:11 BP 143 / 91; Pulse 88; Resp 16; Temp 97.3(TE); Pulse Ox 98% on R/A; Weight 81.65 kg; hb Height 5 ft. 8 in. ; Pain 5/10; 11:11 Body Mass Index 27.37 (81.65 kg, 172.72 cm) hb 11:11 Pain Scale: Adult hb MDM: 11:11 Medical Screening Exam initiated sp3 12:30 Data reviewed: vital signs, nurses notes, old medical records, lab test result(s), sp3 radiologic studies. ED course: 34-year-old male with Crohn's disease now with abdominal pain. Differential diagnosis includes Crohn's flare, functional abdominal pain, constipation, colitis, gastritis, among others. I am not highly suspicious of sepsis or shock. Patient declined IV contrast on his CT scan and declined any medications including normal saline. I offered pain medication and IV steroids. CT scan demonstrates inflammatory changes chronic in nature and blood work is all normal. We will discharge patient home at this time to follow-up with his primary care team.. 07/14 11:18 Order name: CBC with Diff; Complete Time: 12:18 sp3 07/14 11:18 Order name: CMP; Complete Time: 12:18 sp3 07/14 11:18 Order name: Lipase; Complete Time: 12:18 sp3 07/14 12:01 Order name: Abdomen ; Complete Time: 12:18 EDMS 07/14 11:18 Order name: IV Saline Lock; Complete Time: 11:58 sp3 07/14 11:18 Order name: Labs collected and sent; Complete Time: 11:58 sp3 Administered Medications: 11:56 Drug: NS 0.9% IV 1000 ml IV at 1 bolus Per protocol; to be given as a bolus over 60 hb minutes Route: IV; Rate: 1 bolus; Site: right antecubital; 12:38 Follow up: Response: No adverse reaction; IV Status: Completed infusion; IV Intake: hb 1000ml 11:58 Not Given (Patient Refused): ondansetron 4 mg IVP once; over 2 minutes hb 11:58 Not Given (Patient Refused): morphineor iv 4 mg IVP once over 4 mins hb Disposition Summary: 07/14/24 12:31 Discharge Ordered Notes: Location: Home sp3 Condition: Stable sp3 Diagnosis - Crohn's flare, abdominal pain sp3 Followup: sp3 - With: Private Physician - When: Upon discharge from the Emergency Department - Reason: Continuance of care Discharge Instructions: - Discharge Summary Sheet sp3 - Crohn's Disease sp3 Forms: - Work release form hb - Medication Reconciliation Form sp3 - Antibiotic Education sp3 - Prescription Opioid Use sp3 - Patient Portal Instructions sp3 - Leadership Thank You Letter sp3 Signatures: Dispatcher [employer] EDMS Dunia Bennett RN RN Mark Walker MD MD sp3 Corrections: (The following items were deleted from the chart) 11:18 11:18 CBC+H.LAB.BRZ ordered. EDMS EDMS 11:18 11:18 COMPREHENSIVE METABOLIC PANEL+C.LAB.BRZ ordered. EDMS EDMS 11:18 11:18 LIPASE+C.LAB.BRZ ordered. EDMS EDMS 11:18 11:18 Urinalysis+U.LAB.BRZ ordered. EDMS EDMS 12:01 11:18 Abdomen Pelvis W Con+CT.RAD.BRZ ordered. EDMS EDMS
--- NOTE | 2024-07-14 12:32 | ER ---
Nurse's Notes [facility] Name: Brenden Washington Age: 34 yrs Sex: Male : 1990 Arrival Date: 07/14/2024 Time: 10:52 Bed 12 Private MD: Diagnosis: Crohn's flare, abdominal pain Presentation: 07/14 11:11 Chief complaint: Upper abdominal pain and bloody diarrhea today. Coronavirus screen: At this time, the client does not indicate any symptoms associated with coronavirus-19. Ebola Screen: No symptoms or risks identified at this time. Initial Sepsis Screen: Does the patient meet any 2 criteria? No. Patient's initial sepsis screen is negative. Does the patient have a suspected source of infection? No. Patient's initial sepsis screen is negative. Risk Assessment: Do you want to hurt yourself or someone else? Patient reports no desire to harm self or others. Onset of symptoms was July 14, 2024. 11:11 Method Of Arrival: Ambulatory hb 11:11 Acuity: ADI 3 hb Historical: - Allergies: 11:12 Aspirin (Anaphylaxis); hb 11:12 Coreg; hb - PMHx: 11:12 Asthma; Crohn's Disease; Hypertension; hb - Immunization history:: Adult Immunizations up to date. - Infectious Disease History:: Denies. - Social history:: Smoking status: Patient denies any tobacco usage or history of. Vital Signs: 11:11 BP 143 / 91; Pulse 88; Resp 16; Temp 97.3(TE); Pulse Ox 98% on R/A; Weight 81.65 kg; hb Height 5 ft. 8 in. ; Pain 5/10; 11:11 Body Mass Index 27.37 (81.65 kg, 172.72 cm) hb 11:11 Pain Scale: Adult hb ED Course: 10:56 Patient arrived in ED. ra3 10:59 Mark Walker MD is Attending Physician. sp3 11:12 Triage completed. hb 11:13 Arm band placed on. hb 11:[address] via wheelchair. hb 11:56 Initial lab(s) drawn, by me, sent to lab. Inserted saline lock: 20 gauge in right hb antecubital area, using aseptic technique. Blood collected. Flushed with 10 mL NS. 11:58 CMP Sent. hb 11:58 CBC with Diff Sent. hb 11:58 Lipase Sent. hb 12:01 Abdomen In Process Unspecified. EDMS 12:37 No provider procedures requiring assistance completed. IV discontinued, intact, hb bleeding controlled, No redness/swelling at site. Pressure dressing applied. Administered Medications: 11:56 Drug: NS 0.9% IV 1000 ml IV at 1 bolus Per protocol; to be given as a bolus over 60 hb minutes Route: IV; Rate: 1 bolus; Site: right antecubital; 12:38 Follow up: Response: No adverse reaction; IV Status: Completed infusion; IV Intake: hb 1000ml 11:58 Not Given (Patient Refused): ondansetron 4 mg IVP once; over 2 minutes hb 11:58 Not Given (Patient Refused): morphineor iv 4 mg IVP once over 4 mins hb Intake: 12:38 IV: 1000ml; Total: 1000ml. hb Outcome: 12:31 Discharge ordered by sp3 12:37 Discharged to home ambulatory, hb 12:37 Condition: stable 12:37 Discharge instructions given to patient, Instructed on discharge instructions, follow up and referral plans. medication usage, Demonstrated understanding of instructions, follow-up care, medications, Prescriptions given X 1, 12:38 Patient left the ED. hb Signatures: Dispatcher [employer] EDMS Dunia Bennett, BETO RN Mark Walker MD MD sp3 Alicia Salcido ra3
[2024-07-14 13:14] VITALS: BP 143/91; TEMP 97.3; O2SAT 98
== END 2024-07-14 12:38 | disposition home or self-care (01) ==
LOC: ER 10:52
DX: K50.90 Crohn's disease, unspecified, without complications (principal)
CPT/HCPCS: 36415; 74176; 80053; 83690; 85025; 96360; 99285; J2405; J7030

== ENCOUNTER 2024-10-06 06:53 | Emergency (ER) | payer BC ==
--- OUTSIDE RECORDS SUMMARY | 2024-10-06 06:56 | XMS REPORT | Continuity of Care Document ---
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 Name Role Phone RICHIE CARRASCO Primary Care Physician Unavailab Shan De Luna Attending Clinician Unavailable Kameron MULLER Attending Clinician Unavailable Kameron Lino Attending Clinician [phone] KERRY FLORES Attending Clinician Unavailab Kerry Rdz DO Attending Clinician [phone] YANI MENDOZA Attending Clinician Unavaila ble Yani Garza Attending Clinician [phone] Doctor Unassigned, [place] Attending Clinician U ROSIBEL Hyde Attending Clinician Unavailable Lab, Adc Fam Pob I Attending Clinician Unavailab Rosibel Burris Attending Clinician [phone] JERICA HAINES Attending Clinician Unavailab josh Payers Payer Name Policy Type Policy Number Effective Date Expirati on Date Source COVID19 HRSA UNINSURED [id number] 2020 00:00:00 Problems Condition Name Condition Details Condition Category Status Onset Date Resolution Date Last Treatment Date Treating Clinician Comments Source No known active problems No known active problems Disease [facility] Allergies, Adverse Reactions, Alerts Allergy Name Allergy Type Status Severity Reaction(s) Onset Date Inactive Date Treating Clinician Comments Source aspirin DA Active U Unknown 01-31 00:00: 00 [facility] carvedil ol DA Active U Unknown 8 00:00: 00 [facility] ASPIRIN DRUG INGREDI Active Other-Cmnt 2020-06 0 00:00: 00 [facility] CARVEDIL OL DRUG INGREDI Active Other-Cmnt 2020-06 00:00: 00 [facility] Aspirin Propensi ty to adverse reaction s Active Other - See comments 2020-06 00:00: 00 "syncope" [facility] Carvedil ol Propensi ty to adverse reaction s Active Other - See comments 2020-06 00:00: 00 [facility] NO KNOWN ALLERGIE S Drug Class Active [facility] Social History Social Habit Start Date Stop Date Quantity Comments Source Exposure to SARS-CoV-2 (event) 2022-09-06 00:00:00 2022-09-16 14:27:00 Not sure [facility] Sex Assigned At 1990 00:00:00 1990 00:00:00 [facility] Smoking Status Start Date Stop Date Source Tobacco smoking consumption unknown [facility] Medications Ordered Medication Name Filled Medication Name Start Date Stop Date Current Medication? Ordering Clinician Indication Dosage Frequency Signature (SIG) Comments Components Source levalbutero l (XOPENEX) nebulizer solution 1.25 mg 09-16 20:30: 00 09-16 19:44 :00 No 1.25mg 1.25 mg, Inhalation , ONCE, 1 dose, On Wed09/16/22 at 1530, Routine [facility] NaCl 0.9% (NS) bolus infusion 1,000 mL 07-30 18:15: 00 07-31 06:14 :00 No 1000mL at 999 mL/hr, 1,000 mL, IV Infusion, ONCE, 1 dose, On Wed07/30/21 at 1215, TERENCE [facility] No known medications 2022-0 2-16 11:19: 13 No [facility] Vital Signs Vital Name Observation Time Observation Value Comments S ource Systolic blood pressure 2022-11-19 15:12:00 138 mm[Hg] [facility] Diastolic blood pressure 2022-11-19 15:12:00 100 mm[Hg] [facility] Heart rate 2022-11-19 15:12:00 83 /min [facility] Body temperature 2022-11-19 15:12:00 36.72 Smita [facility] Respiratory rate 2022-11-19 15:12:00 16 /min [facility] Body weight 2022-11-19 15:12:00 76.204 kg [facility] BMI 2022-11-19 15:12:00 25.54 kg/m2 [facility] Oxygen saturation in Arterial blood by Pulse oximetry 2022-11-19 15:12:00 98 /min [facility] Heart rate 2022-09-16 20:01:00 99 /min [facility] Respiratory rate 2022-09-16 20:01:00 18 /min [facility] Oxygen saturation in Arterial blood by Pulse oximetry 2022-09-16 20:01:00 99 /min [facility] Systolic blood pressure 2022-09-16 19:26:00 138 mm[Hg] [facility] Diastolic blood pressure 2022-09-16 19:26:00 90 mm[Hg] [facility] Body temperature 2022-09-16 19:26:00 37.22 Smita [facility] Body height 2022-09-16 19:26:00 172.7 cm [facility] Body weight 2022-09-16 19:26:00 79.379 kg [facility] BMI 2022-09-16 19:26:00 26.61 kg/m2 [facility] Systolic blood pressure 2021-07-30 16:42:00 144 mm[Hg] [facility] Diastolic blood pressure 2021-07-30 16:42:00 98 mm[Hg] [facility] Heart rate 2021-07-30 16:42:00 87 /min [facility] Body temperature 2021-07-30 16:42:00 37.06 Smita [facility] Respiratory rate 2021-07-30 16:42:00 14 /min [facility] Body height 2021-07-30 16:42:00 172.7 cm [facility] Body weight 2021-07-30 16:42:00 69.899 kg [facility] BMI 2021-07-30 16:42:00 23.43 kg/m2 [facility] Oxygen saturation in Arterial blood by Pulse oximetry 2021-07-30 16:42:00 100 /min [facility] Systolic blood pressure 2021-04-10 16:32:00 146 mm[Hg] [facility] Diastolic blood pressure 2021-04-10 16:32:00 99 mm[Hg] [facility] Heart rate 2021-04-10 16:32:00 89 /min [facility] Body temperature 2021-04-10 16:32:00 36.89 Smita [facility] Respiratory rate 2021-04-10 16:32:00 17 /min [facility] Body weight 2021-04-10 16:32:00 68.04 kg [facility] Oxygen saturation in Arterial blood by Pulse oximetry 2021-04-10 16:32:00 100 /min [facility] Procedures Procedure Date / Time Performed Performing Clinicia n Source ASSIGNMENT OF BENEFITS 2022-11-19 15:27:20 Docto r Unassigned, [facility] CONSENT/REFUSAL FOR DIAGNOSIS AND TREATMENT 2022-11-19 15:04:02 Doctor Unassigned, [facility] NOTICE OF PRIVACY PRACTICES 2022-09-16 19:21:06 Doctor Unassigned, [facility] CONSENT/REFUSAL FOR DIAGNOSIS AND TREATMENT 2022-09-16 19:19:49 Doctor Unassigned, [facility] NOTICE OF PRIVACY PRACTICES 2021-07-30 16:41:12 Doctor Unassigned, [place] CONSENT/REFUSAL FOR DIAGNOSIS AND TREATMENT 2021-07-30 16:37:50 Doctor Unassigned, [place] CONSENT/REFUSAL FOR DIAGNOSIS AND TREATMENT 2021-04-10 16:29:21 Doctor Unassigned, [facility] Encounters Start Date/Time End Date/Time Encounter Type Admission Type Attending [facility] Care Department Encounter ID Source 2023-01-31 17:56:41 Emergency [facility] [id number] [facility] [place] 2023-01-31 17:15:00 2023-01-31 22:25:00 Emergency Emergency Teddy Shan [facility] [id number] [facility] 2023-01-31 17:15:00 2023-01-31 22:25:00 Emergency Emergency Teddy, Shan [facility] [id number] [facility] 2022-11-19 10:14:00 2022-11-19 11:35:00 Emergency X Kameron MULLER [facility] ERT [id number] [facility] 2022-11-19 10:14:00 2022-11-19 11:35:00 Emergency Kameron Muller [facility] [id number] [id number] [facility] 2022-09-16 14:29:00 2022-09-16 15:51:00 Emergency X KERRY FLORES [facility] ERT [id number] [facility] 2022-09-16 14:29:00 2022-09-16 15:51:00 Emergency Kerry Flores [facility] [id number] [id number] [id number] [facility] 2021-07-30 10:45:00 2021-07-30 11:33:00 Emergency X YANI MENDOZA [facility] ERT [id number] [facility] 2021-07-30 10:45:00 2021-07-30 11:33:00 Emergency Yani Mendoza F [facility] [id number] [id number] [id number] [facility] 2021-07-30 00:00:00 2021-07-30 00:00:00 Orders Only Doctor Unassigned, [facility] [id number] [id number] [id number] [id number] [facility] 2021-04-10 11:33:00 2021-04-10 12:08:00 Emergency X [facility] ERT [id number] [facility] 2021-04-10 11:33:00 2021-04-10 12:08:00 Emergency [facility] [id number] [id number] 4.2.7.2.686 [id number] [facility] 2020-08-06 09:40:00 2020-08-06 09:40:00 Outpatient R ROSIBEL GUPTA [facility] [id number] [facility] 2020-08-06 09:08:02 2020-08-06 09:28:02 Laboratory Only Lab, [facility] [address] 1.0.114 350.1.13.10 4.2.7.2.686 [id number] 2020-08-06 09:08:02 2020-08-06 09:28:02 Laboratory Only [facility], [facility] 1.840.114 [id number] 4.2.7.2.686 [id number] [facility] 2020-07-19 15:40:00 2020-07-19 15:11:52 Outpatient R JERICA HAINES [facility] [id number] [facility] Results Test Description Test Time Test Comments Results Result Co mments Source Complete Blood Count Auto [id number] 19:14:00* Test Item Value Reference Range Interpretation [...] code = NRBCP) 0 % Prothrombin Time [id number] 18:25:00* Test Item Value Reference Range Interpretation [...] 3.5 Mechanical Heart, Intracardiac Thrombosis. Partial Thromboplastin [id number] 18:25:00* Test Item Value Reference Range Interpretation Comme nts Partial Thromboplastin Time (test code = PTT) 28.8 Seconds 23.9-32.8 N Comprehensive Metabolic [id number] 18:25:00* Test Item Value Reference Range Interpretation [...] a race coefficient. Additional information canbe found at:[email or web address] ([email or web address]) [Automated message] The system [...] = ALP) 141 U/L 46-116 H Creatine [id number] 18:25:00* Test Item Value Reference Range Interpretation Comme nts Creatine Kinase (test code = CK) 122 U/L 46-171 N Troponin I High [id number] 18:25:00* Test Item Value Reference Range Interpretation Comme nts Troponin I High Sensitivity (test code = TROPHS) < 3 ng/L 0-45 N [id number] 18:25:00* Test Item Value Reference Range Interpretation Comme nts Lipase (test code = LIP) 33 U/L 12-53 N EKG ED Electrocardiogram. [facility] [address] [place], [place] [id number] Patient Name: Brenden De Leon Medical Record#: [id number] Address: [address] [place] [address] City/State/Zip: [place] [address]: Shan Espinal DO Insurance: Self Pay /Age/Sex: 1990/32/M Admit/Reg Date: 01/31/[address]: Zunilda Baer NP Location: [facility]/ PCP: Pcp-Md MIKE Acevedo Date of Service: 01/31/23 Order (s): EKG ED Electrocardiogram CPT Code: 98448 Report Number: [id number] Reason for Exam: dizziness Sinus tachycardia Lead(s) unsuitable for analysis: V5 Short AL interval Diffuse ST-T abnormality is nonspecific Summary: Borderline ECG Dictated By: Alberto Escalera MD 01/31/231732 Signed By: Alberto Escalera MD 02/11/23 1559TD/TT: 01/31/231732 Tech: MW02 cc: HOUKA; PCPNO* Zunilda Baer NP; Pcp-Md MIKE Acevedo Notes Date/Time Note Provider Source 2023-01-31 18:33:00 [facility] C enter [address] [place] [address] Emergency Department Document Signed Patient: Brenden De Leon Medical Record#: [id number] : 1990 Acct:[id number] Age/Sex: 32 / M Admit/Reg Date: 01/31/23 Loc: [facility] Room: Report Number: [id number]: Shan Espinal DO <Zunilda Baer - Last Filed: 02/01/23 00:36> Arrival - Arrival ED Triage Note: Pt presents in ED, arrived by EMS, c/o Dizziness and Weakness after vomiting, while at the [employer]. Pt reports Hx - Crohn's Disease. [...] % (Auto) Cancelled Lymph % (Auto) Cancelled Patrick % (Auto) Cancelled Eos % (Auto) Cancelled Baso % (Auto) Cancelled Neut # (Auto) Cancelled Lymph # (Auto) Cancelled Patrick # (Auto) Cancelled Eos # (Auto) Cancelled [...] 86.8 H Lymph % (Auto) 7.9 L Patrick % (Auto) 4.3 Eos % (Auto) 0.5 Baso % (Auto) 0.2 Neut # (Auto) 10.4 H Lymph # (Auto) 0.95 Patrick # (Auto) 0.52 Eos # (Auto) 0.06 [...] (Auto) Neut % (Auto) Lymph % (Auto) Patrick % (Auto) Eos % (Auto) Baso % (Auto) Neut # (Auto) Lymph # (Auto) Patrick # (Auto) Eos # (Auto) Baso # [...] Lipase MDM: EKG sinus tachycardia, rate 108, AL 122, QRS 87, QTC 444, no ST [...] % (Auto) Cancelled, Lymph % (Auto) Cancelled, Patrick % (Auto) Cancelled, Eos % (Auto) Cancelled, Baso % (Auto) Cancelled, Neut # (Auto) Cancelled, Lymph # (Auto) Cancelled, Patrick # (Auto) Cancelled, Eos # (Auto) Cancelled, [...] 86.8 H, Lymph % (Auto) 7.9 L, Patrick % (Auto) 4.3, Eos % (Auto) 0.5, Baso % (Auto) 0.2, Neut # (Auto) 10.4 H, Lymph # (Auto) 0.95, Patrick # (Auto) 0.52, Eos # (Auto) 0.06, [...] to emergency department via EMS from the [employer] game, complaining of nausea vomiting and dizziness. [...] Mike [Primary Care Provider] - Print Language: American - Discharge Data Time Seen by Provider: 01/31/23 17:25 - Depart Patient Account Discharge Date/Time: 01/31/23 22:25 Dictated By: Zunilda Baer NP Signed By: Zunilda Baer NP 02/01/23 0040 Shan Espinal DO 02/04/23 0615 DD/ 32 TD/TT: 01/31/231832 Fire Supervisor: [id number] cc: CHARLIE* Pcp-Md MIKE Acevedo [facility]
[2024-10-06 07:44] LABS: Absolute Eosinophils 0.2 K/uL (0-0.5); Absolute Lymphocytes (CBC) 1.5 K/uL (0.7-4.9); Absolute Monocytes 0.4 K/uL (0.1-1.3); Absolute Neutrophil 3.2 K/uL (1.8-8.0); Basophils % 0.6 % (0-1.3); Hematocrit 42.5 % (39.6-49.0); Hemoglobin 14.9 g/dL (13.6-17.9); Lymphocytes % 28.2 % (15.3-44.8); MCHC 35.1 g/dL (32.0-36.0); MCV 88.2 fL (80-100); MPV 7.8 fL (7.6-11.3); Monocytes % 7.9 % (3.3-12.3); Neutrophils % 59.3 % (41.7-73.7); Nucleated Red Blood Cells % 0.2 % (0-0); Platelets 207 thou/uL (152-406); RBC Red Blood Cell Count 4.82 M/uL (4.33-5.43); Red Cell Distribution Width 12.9 % (12.1-15.2)
[2024-10-06 07:56] LABS: Albumin 3.7 g/dL (3.4-5.0); Anion Gap 4.7 mEq/L (5.0-15.0); Bilirubin Total 0.5 mg/dL (0.2-1.0); Globulin 3.8 g/dL (2.3-3.5); Potassium 3.7 mEq/L (3.5-5.1); Protein, Total 7.5 g/dL (6.4-8.2)
--- NOTE | 2024-10-06 08:06 | ER ---
Nurse's Notes [facility] Name: Brenden Washington Age: 34 yrs Sex: Male : 1990 Arrival Date: 10/06/2024 Time: 06:53 Bed 19 Private MD: Diagnosis: Abdominal pain, unspecified Presentation: 10/06 07:13 Chief complaint: Patient states: he has been having nausea and vomiting since 0100, ap3 which have since improved. patient reports his pain is currently a 3/10 on the pain scale at this time. Coronavirus screen: At this time, the client does not indicate any symptoms associated with coronavirus-19. Ebola Screen: No symptoms or risks identified at this time. Initial Sepsis Screen: Does the patient meet any 2 criteria? No. Patient's initial sepsis screen is negative. Does the patient have a suspected source of infection? No. Patient's initial sepsis screen is negative. Risk Assessment: Do you want to hurt yourself or someone else? Patient reports no desire to harm self or others. Onset of symptoms was October 06, 2024 at 01:00. 07:13 Method Of Arrival: Ambulatory ap3 07:13 Acuity: ADI 3 ap3 Triage Assessment: 07:15 General: Appears in no apparent distress. Behavior is calm, cooperative, appropriate ap3 for age. Pain: Complains of pain in abdomen Pain currently is 3 out of 10 on a pain scale. Pain began 0100. Neuro: Level of Consciousness is awake, alert, obeys commands, Oriented to person, place, time, situation, Appropriate for age. Cardiovascular: Patient's skin is warm and dry. Respiratory: Airway is patent Respiratory effort is even, unlabored, Respiratory pattern is regular, symmetrical. GI: Reports nausea, vomiting. Historical: - Allergies: 07:15 Coreg; ap3 07:15 Aspirin (Anaphylaxis); ap3 - PMHx: 07:15 Asthma; Crohn's Disease; Hypertension; ap3 - Immunization history:: Client reports having NOT received the Covid vaccine. Flu vaccine is not up to date. - Infectious Disease History:: Denies. - Social history:: Smoking status: Patient denies any tobacco usage or history of. - Family history:: not pertinent. Screenin:18 [facility] ED Fall Risk Assessment (Adult) History of falling in the last 3 months, ap3 including since admission No falls in past 3 months (0 pts) Confusion or Disorientation No (0 pts) Intoxicated or Sedated No (0 pts) Impaired Gait No (0 pts) Mobility Assist Device Used No (0 pt) Altered Elimination No (0 pt) Score/Fall Risk Level 0 - 2 = Low Risk Oriented to surroundings, Maintained a safe environment, Educated pt \T\ family on fall prevention, incl call for assistance when getting out of bed, Assessed \T\ reinforced patient's understanding of fall precautions, Hourly rounding (assess needs \T\ fall precautionary measures) done, Used ambulatory aids as needed (educated on \T\ assisted with). Abuse screen: Denies threats or abuse. Nutritional screening: No deficits noted. Tuberculosis screening: No symptoms or risk factors identified. Assessment: 07:25 General: Appears comfortable, Behavior is calm, cooperative. Pain: Complains of pain in aa5 abdomen Pain currently is 3 out of 10 on a pain scale. Quality of pain is described as aching, crampy. Neuro: Level of Consciousness is awake, alert, obeys commands, Oriented to person, place, time, situation. Cardiovascular: Patient's skin is warm and dry. Respiratory: Airway is patent Respiratory effort is even, unlabored, Respiratory pattern is regular, symmetrical. GI: Abdomen is round non-distended, Bowel sounds present X 4 quads. Abd is soft and non tender X 4 quads. Reports nausea, vomiting. : No signs and/or symptoms were reported regarding the genitourinary system. EENT: No signs and/or symptoms were reported regarding the EENT system. Derm: Skin is pink, warm \T\ dry. Musculoskeletal: Range of motion: intact in all extremities. 08:25 Reassessment: Patient is alert, oriented x 3, equal unlabored respirations, skin aa5 warm/dry/pink. Vital Signs: 07:13 BP 134 / 78; Pulse 81; Resp 17; Temp 98.2; Pulse Ox 98% on R/A; Weight 79.38 kg; Height ap3 5 ft. 8 in. ; Pain 3/10; 08:00 BP 148 / 82; Pulse 80; Resp 16 S; Pulse Ox 99% on R/A; aa5 07:13 Body Mass Index 26.61 (79.38 kg, 172.72 cm) ap3 07:13 Pain Scale: Adult ap3 ED Course: 06:56 Patient arrived in ED. [id number] 06:58 Carter Quinones MD is Attending Physician. rt 07:15 Triage completed. ap3 07:18 Arm band placed on right wrist. ap3 07:25 Patient has correct armband on for positive identification. Bed in low position. Call aa5 light in reach. Side rails up X 1. Pulse ox on. NIBP on. 07:30 Initial lab(s) drawn, by me, sent to lab. aa5 07:46 Margaret Nguyễn, RN is Primary Nurse. aa5 08:25 No provider procedures requiring assistance completed. Patient did not have IV access aa5 during this emergency room visit. Administered Medications: No medications were administered Medication: 07:48 VIS not applicable for this client. aa5 Outcome: 08:05 Discharge ordered by . rt 08:25 Discharged to home ambulatory, aa5 08:25 Condition: stable 08:25 Discharge instructions given to patient, Instructed on discharge instructions, follow up and referral plans. Demonstrated understanding of instructions, follow-up care, 08:27 Patient left the ED. aa5 Signatures: Margaret Nguyễn, RN RN aa5 Marlen Mckeon RN RN ap3 Barbara Fam [email or web address] Carter Quinones MD MD rt
--- NOTE | 2024-10-06 08:06 | EDPHYS ---
Physician Documentation [facility] Name: Brenden Washington Age: 34 yrs Sex: Male : 1990 Arrival Date: 10/06/2024 Time: 06:53 Bed 19 Private MD: ED Physician Carter Quinones HPI: 10/06 07:22 This 34 yrs old Male presents to ER via Ambulatory with complaints of rt Nausea/Vomiting, Abdominal Pain. 07:22 Patient with history of Crohn's disease presents to the ED with generalized abdominal rt pain starting at about 1. He had 1 episode of nausea and vomiting. Denied any rectal bleeding. Patient states that the symptoms have all but resolved and he is at his baseline level of pain at that he deals with every day currently. He denies other acute complaints at this time, symptoms are moderate in severity, no other aggravating or alleviating factors.. Historical: - Allergies: 07:15 Coreg; ap3 07:15 Aspirin (Anaphylaxis); ap3 - PMHx: 07:15 Asthma; Crohn's Disease; Hypertension; ap3 - Immunization history:: Client reports having NOT received the Covid vaccine. Flu vaccine is not up to date. - Infectious Disease History:: Denies. - Social history:: Smoking status: Patient denies any tobacco usage or history of. - Family history:: not pertinent. ROS: 07:22 Constitutional: Negative for fever, chills, and weight loss, Cardiovascular: Negative rt for chest pain, palpitations, and edema, Respiratory: Negative for shortness of breath, cough, wheezing, and pleuritic chest pain, MS/Extremity: Negative for injury and deformity, Skin: Negative for injury, rash, and discoloration, Neuro: Negative for headache, weakness, numbness, tingling, and seizure, 07:22 Abdomen/GI: Positive for abdominal pain, nausea and vomiting, Exam: 07:22 Constitutional: This is a well developed, well nourished patient who is awake, alert, rt and in no acute distress. Head/Face: Normocephalic, atraumatic. Chest/axilla: Normal chest wall appearance and motion. Nontender with no deformity. No lesions are appreciated. Cardiovascular: Regular rate and rhythm with a normal S1 and S2. No gallops, murmurs, or rubs. Normal PMI, no JVD. No pulse deficits. Respiratory: Lungs have equal breath sounds bilaterally, clear to auscultation and percussion. No rales, rhonchi or wheezes noted. No increased work of breathing, no retractions or nasal flaring. Skin: Warm, dry with normal turgor. Normal color with no rashes, no lesions, and no evidence of cellulitis. MS/ Extremity: Pulses equal, no cyanosis. Neurovascular intact. Full, normal range of motion. Neuro: Awake and alert, GCS 15, oriented to person, place, time, and situation. Cranial nerves II-XII grossly intact. Motor strength 5/5 in all extremities. Sensory grossly intact. Cerebellar exam normal. Normal gait. 07:22 Abdomen/GI: No focal areas of abdominal tenderness, no rebound, guarding, distention, Vital Signs: 07:13 BP 134 / 78; Pulse 81; Resp 17; Temp 98.2; Pulse Ox 98% on R/A; Weight 79.38 kg; Height ap3 5 ft. 8 in. ; Pain 3/10; 08:00 BP 148 / 82; Pulse 80; Resp 16 S; Pulse Ox 99% on R/A; aa5 07:13 Body Mass Index 26.61 (79.38 kg, 172.72 cm) ap3 07:13 Pain Scale: Adult ap3 MDM: 07:13 Medical Screening Exam initiated rt 08:05 Differential diagnosis: Crohn's disease, gastroenteritis. Data reviewed: vital signs, rt nurses notes, lab test result(s). Test considered but Not performed: CT: Patient with a benign abdominal examination, states that his pain has returned to his baseline level of pain that he deals with chronically. Shared decision-making was employed, we will forego radiation exposure at this time and not order CT scan. Labs are reassuring. Patient is comfortable with discharge, instructed to monitor his symptoms at home and to return if his symptoms were to worsen. I reviewed the previous CT results that showed signs of chronic inflammation. Care significantly affected by the following chronic conditions: Crohn's disease. Counseling: I had a detailed discussion with the patient and/or guardian regarding the historical points, exam findings, and any diagnostic results supporting the discharge/admit diagnosis, lab results, to return to the emergency department if symptoms worsen or persist or if there are any questions or concerns that arise at home. 10/06 07:20 Order name: CBC with Diff; Complete Time: 08:01 rt 10/06 07:20 Order name: CMP; Complete Time: 08:01 rt Administered Medications: No medications were administered Disposition Summary: 10/06/24 08:05 Discharge Ordered Notes: Location: Home rt Problem: chronic rt Symptoms: have improved rt Condition: Stable rt Diagnosis - Abdominal pain, unspecified rt Followup: rt - With: Private Physician - When: 2 - 3 days - Reason: Discharge Instructions: - Discharge Summary Sheet rt - Abdominal Pain, Adult rt Forms: - Work release form ap3 - Medication Reconciliation Form rt - Antibiotic Education rt - Prescription Opioid Use rt - Patient Portal Instructions rt - Leadership Thank You Letter rt Signatures: Dispatcher [employer] Marlen Payne RN RN ap3 Carter Quinones MD MD rt
[2024-10-06 08:31] VITALS: BP 134/78; TEMP 98.2; O2SAT 98
== END 2024-10-06 08:27 | disposition home or self-care (01) ==
LOC: ER 06:53
DX: R10.84 Generalized abdominal pain (principal); R11.2 Nausea with vomiting, unspecified; Z28.310 Unvaccinated for COVID-19
CPT/HCPCS: 36415; 80053; 85025; 99283